=== PATIENT | female | born 1985 | race Caucasian/White ===

== ENCOUNTER 2016-06-25 02:05 | Emergency (ER) | payer SELFPAY ==
[~2016-06-25 02:05] MED LIST: ACCUCHECK; ALBUTEROL INH; ALCOHOL SWABS; ASPI81TA45 OR; FOLI1TAB2 PO; HABITROL14 TOPICAL; HABITROL2 TOPICAL; HABITROL7 TOPICAL; INSUDET SC; INSULANT SC; INSULIN SYRINGES; INSURSD SC; LANCET; LEVA500T; LISPRO; METF500T4 OR; NAPROS500 PO; NEXIUM40 PO; NICOTROLIN PO; NOVOLOG100 MG/ML; THIA100T PO; [UNRECOGNIZED DRUG - CODE] PO
--- NOTE | 2016-06-25 03:20 | REPUSA ---
HISTORY: Trauma. COMPARISON: Not provided. TECHNIQUE: Multiple thin section helically-acquired axially-displayed and helically acquired coronall y displayed computed tomographic images of the face are obtained from the mandible through the fronta l sinuses, with images obtained at soft tissue and bone window. 2D reformatted images were performed. FINDINGS: Left periorbital soft tissue edema and swelling. Normal bony mineralization. No fractures. Normal orbits. Normal, clear paranasal sinuses. Normal oral and nasal cavities. Normal infratemporal fossa and deep parapharyngeal spaces with normal muscles of mastication. Normal parotid and submandibular glands. IMPRESSION: Left periorbital soft tissue edema and swelling. No fracture. Thank you for your kind referral of this patient
[2016-06-25] MEDS ORDERED: ACETAMINOPHEN 325 MG TAB As Ordered ONE (03:25)
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
--- NOTE | 2016-06-25 03:36 | EDDOCDS ---
Physician Documentation [facility] Name: Parisa Pa Age: 31 yrs Sex: Female : 1985 Arrival Date: 06/25/2016 Time: 02:05 Bed 2 Private MD: No Pcp Disposition: 06/25/16 03:21 Discharged to Home/Self Care. Impression: Contusion of unspecified part of head, Contusion of unspecified part of neck, Contusion of back wall of thorax. - Condition is Stable. - Medication Reconciliation, Local Pharmacy Hours form. - Follow up: Private Physician; When: Call to arrange an appointment; Reason: Recheck today's complaints. - Problem is new. - Symptoms have improved. Historical: - Allergies: no known allergies; - Home Meds: 1. Levemir 30 units in the am and between 10 and 20 units at night subcutaneous soln (Last dose: 06/24/2016 18:00) - PMHx: Diabetes - IDDM: controlled; - PSHx: none; - Social history: Smoking status: Patient uses tobacco products, light tobacco smoker. No barriers to communication noted, The patient speaks fluent [place]. - Family history: Not pertinent. - : The pt / caregiver states he / she is not on anticoagulants. Home medication list is obtained from the patient. - Exposure Risk Screening:: None identified. HEAD SWAMPER: 06/25 02:13 LMP 06/25/2016 [facility] Vital Signs: 02:13 BP 123 / 83; Pulse 85; Resp 18; Temp 98.2(O); Pulse Ox 98% on R/A; Weight 54.43 kg / kas2 120 lbs; Height 5 ft. 8 in. (172.72 cm); Pain 6/10; 03:33 BP 123 / 83; Pulse 82; Resp 18; Temp 98.0(O); Pulse Ox 98% on R/A; Pain 0/10; kas2 02:13 Body Mass Index 18.25 (54.43 kg, 172.72 cm) [facility] MDM: 02:23 Spine, Thoracic 3 Views Ordered. EDMS 02:23 Chest, 1 View Ordered. EDMS 02:23 CT Head Without Contrast Ordered. EDMS 02:23 CT Maxilofacial W/out Contrast Ordered. EDMS 02:26 Consult: Dining Service Inspector ordered. sls1 03:14 Acetaminophen Tablet 650 mg PO once ordered. cs11 03:16 Consult: Dining Service Inspector complete. cl 03:22 Financial registration complete. [facility] Point of Care Testing: Blood Glucose: : Blood Glucose: 236 mg/dL; kas2 Ranges: Administered Medications: : Drug: Acetaminophen 650 mg [acetaminophen 325 mg tablet (2 tabs)] Route: PO; kas2 Signatures: Dispatcher [employer] EDMS Nimesh Pacheco, PSA PSA Katerina Mcdonough RN RN sls1 Kobi Mckeon DO DO [facility] Cassy Dykes [facility] Luli Vilchis RN RN kas2 MTDD
--- NOTE | 2016-06-25 08:29 | REP ---
Clinical: Trauma . Comparison: 12/08/2015 . Technique: PA and lateral. Findings: The mediastinum and cardiac silhouette are normal. The lung macias are clear and without acute consolidation, effusion, or pneumothorax. The skeletal structures are intact and normal. Impression: 1. No acute cardiopulmonary process. Signed by Gian Lopez MD 06/25/2016 08:20 A
--- NOTE | 2016-06-25 08:29 | REP ---
Clinical: Trauma. Technique: AP, lateral, and swimmers views. Findings: Alignment and kyphosis is maintained. Vertebral bodies intact. No acute fracture / compression injury or subluxation. No degenerative changes. Paravertebral soft tissues are normal. Impression: Normal thoracic spine series. Signed by Gian Lopez MD 06/25/2016 08:20 A
--- NOTE | 2016-06-27 04:36 | EDDOCDS ---
Physician Documentation [facility] Name: Parisa Pa Age: 31 yrs Sex: Female : 1985 Arrival Date: 06/25/2016 Time: 02:05 Bed 2 Private MD: No Pcp Disposition: 06/25/16 03:21 Discharged to Home/Self Care. Impression: Contusion of unspecified part of head, Contusion of unspecified part of neck, Contusion of back wall of thorax. - Condition is Stable. - Medication Reconciliation, Local Pharmacy Hours form. - Follow up: Private Physician; When: Call to arrange an appointment; Reason: Recheck today's complaints. - Problem is new. - Symptoms have improved. Historical: - Allergies: no known allergies; - Home Meds: 1. Levemir 30 units in the am and between 10 and 20 units at night subcutaneous soln (Last dose: 06/24/2016 18:00) - PMHx: Diabetes - IDDM: controlled; - PSHx: none; - Social history: Smoking status: Patient uses tobacco products, light tobacco smoker. No barriers to communication noted, The patient speaks fluent Zambian. - Family history: Not pertinent. - : The pt / caregiver states he / she is not on anticoagulants. Home medication list is obtained from the patient. - Exposure Risk Screening:: None identified. ASSET LIABILITY ANALYST: 06/25 02:13 LMP 06/25/2016 [facility] Vital Signs: 02:13 BP 123 / 83; Pulse 85; Resp 18; Temp 98.2(O); Pulse Ox 98% on R/A; Weight 54.43 kg / kas2 120 lbs; Height 5 ft. 8 in. (172.72 cm); Pain 6/10; 03:33 BP 123 / 83; Pulse 82; Resp 18; Temp 98.0(O); Pulse Ox 98% on R/A; Pain 0/10; kas2 02:13 Body Mass Index 18.25 (54.43 kg, 172.72 cm) [facility] MDM: 02:23 Spine, Thoracic 3 Views Ordered. EDMS 02:23 Chest, 1 View Ordered. EDMS 02:23 CT Head Without Contrast Ordered. EDMS 02:23 CT Maxilofacial W/out Contrast Ordered. EDMS 02:26 Consult: Bath Steward/Stewardess ordered. sls1 03:14 Acetaminophen Tablet 650 mg PO once ordered. cs11 03:16 Consult: Bath Steward/Stewardess complete. cl 03:22 Financial registration complete. [facility] 03:37 [facility] Payment Agreement was scanned into [employer] and attached to record. [facility] 06/26 09:55 T-Sheet-- Draft Copy was scanned into [employer] and attached to record. [facility] Point of Care Testing: Blood Glucose: 06/25 02:26 Blood Glucose: 236 mg/dL; kas2 Ranges: Administered Medications: 03:26 Drug: Acetaminophen 650 mg [acetaminophen 325 mg tablet (2 tabs)] Route: PO; kas2 Signatures: Dispatcher [employer] EDMS Nimesh Pacheco, PSA PSA cl Berta Kwok, Reg Reg gb Katerina Vincent, RN RN sls1 Kobi Mckeon DO DO 11 Cassy Dykes Luli PetersRN RN kas2 The chart was reviewed and I authenticate all verbal orders and agree with the evaluation and treatment provided.Attachments: 03:37 [facility] Payment Agreement [facility] 06/26 09:55 T-Sheet-- Draft Copy Chart Complete MTDD
--- NOTE | 2016-06-27 04:36 | EDDOCDS ---
Physician Documentation [facility] Name: Parisa Pa Age: 31 yrs Sex: Female : 1985 Arrival Date: 06/25/2016 Time: 02:05 Bed 2 Private MD: No Pcp Disposition: 06/25/16 03:21 Discharged to Home/Self Care. Impression: Contusion of unspecified part of head, Contusion of unspecified part of neck, Contusion of back wall of thorax. - Condition is Stable. - Medication Reconciliation, Local Pharmacy Hours form. - Follow up: Private Physician; When: Call to arrange an appointment; Reason: Recheck today's complaints. - Problem is new. - Symptoms have improved. Historical: - Allergies: no known allergies; - Home Meds: 1. Levemir 30 units in the am and between 10 and 20 units at night subcutaneous soln (Last dose: 06/24/2016 18:00) - PMHx: Diabetes - IDDM: controlled; - PSHx: none; - Social history: Smoking status: Patient uses tobacco products, light tobacco smoker. No barriers to communication noted, The patient speaks fluent Algerian. - Family history: Not pertinent. - : The pt / caregiver states he / she is not on anticoagulants. Home medication list is obtained from the patient. - Exposure Risk Screening:: None identified. JANITOR CLEANER: 06/25 02:13 LMP 06/25/2016 [facility] Vital Signs: 02:13 BP 123 / 83; Pulse 85; Resp 18; Temp 98.2(O); Pulse Ox 98% on R/A; Weight 54.43 kg / kas2 120 lbs; Height 5 ft. 8 in. (172.72 cm); Pain 6/10; 03:33 BP 123 / 83; Pulse 82; Resp 18; Temp 98.0(O); Pulse Ox 98% on R/A; Pain 0/10; kas2 02:13 Body Mass Index 18.25 (54.43 kg, 172.72 cm) [facility] MDM: 02:23 Spine, Thoracic 3 Views Ordered. EDMS 02:23 Chest, 1 View Ordered. EDMS 02:23 CT Head Without Contrast Ordered. EDMS 02:23 CT Maxilofacial W/out Contrast Ordered. EDMS 02:26 Consult: Air Twister Winder ordered. sls1 03:14 Acetaminophen Tablet 650 mg PO once ordered. cs11 03:16 Consult: Air Twister Winder complete. cl 03:22 Financial registration complete. [facility] 03:37 [facility] Payment Agreement was scanned into [employer] and attached to record. [facility] 06/26 09:55 T-Sheet-- Draft Copy was scanned into [employer] and attached to record. [facility] Point of Care Testing: Blood Glucose: 06/25 02:26 Blood Glucose: 236 mg/dL; kas2 Ranges: Administered Medications: 03:26 Drug: Acetaminophen 650 mg [acetaminophen 325 mg tablet (2 tabs)] Route: PO; kas2 Signatures: Dispatcher [employer] EDMS Nimesh Pacheco, PSA PSA cl Berta Kwok, Reg Reg gb Katerina Vincent, RN RN sls1 Kobi Mckeon DO DO 11 Cassy Dykes Luli PetersRN RN kas2 The chart was reviewed and I authenticate all verbal orders and agree with the evaluation and treatment provided.Attachments: 03:37 [facility] Payment Agreement [facility] 06/26 09:55 T-Sheet-- Draft Copy Chart Complete MTDD
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
== END 2016-06-25 03:35 | disposition home or self-care (01) ==
LOC: M ED 02:05
DX: S00.93XA Contusion of unspecified part of head, initial encounter (principal); S10.93XA Contusion of unspecified part of neck, initial encounter; S20.229A Contusion of unspecified back wall of thorax, initial encounter; Y04.8XXA Assault by other bodily force, initial encounter; Y92.019 Unspecified place in single-family (private) house as the place of occurrence of the external cause; Y93.9 Activity, unspecified; Y99.9 Unspecified external cause status; X58.XXXA Exposure to other specified factors, initial encounter; E10.9 Type 1 diabetes mellitus without complications; Z72.0 Tobacco use; Z79.4 Long term (current) use of insulin

== ENCOUNTER 2016-07-08 14:24 | Emergency (ER) | payer SELFPAY ==
[2016-07-08] MEDS ORDERED: PERCOCET 5MG/325MG TAB As Ordered ONE (15:28)
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
--- NOTE | 2016-07-08 17:06 | EDDOCDS ---
Physician Documentation [facility] Name: Parisa Pa Age: 31 yrs Sex: Female : 1985 Arrival Date: 07/08/2016 Time: 14:24 Bed I10 23 Private MD: No Pcp Disposition: 07/08/16 16:06 Discharged to Home/Self Care. Impression: Contusion of right shoulder. - Condition is Stable. - Discharge Instructions: Shoulder Pain, Shoulder Pain, [id number]. - Prescriptions for Naprosyn 500 mg Oral Tablet - take 1 tablet by ORAL route 2 times per day take with food; 30 tablet. - Medication Reconciliation, Local Pharmacy Hours form. - Follow up: [facility] ; When: Call to arrange an appointment. Follow up: [facility]; When: Call to arrange an appointment. - Problem is new. - Symptoms are unchanged. Historical: - Allergies: No known drug Allergies; - Home Meds: 1. Levemir subcutaneous 35 units in am and 25 at hs - PMHx: Diabetes - IDDM: controlled; - PSHx: none; - Social history: Smoking status: Patient uses tobacco products, heavy tobacco smoker. No barriers to communication noted, The patient speaks fluent American, Speaks appropriately for age. - Family history: Not pertinent. - : The pt / caregiver states he / she is not on anticoagulants. Home medication list is obtained from the patient. - Exposure Risk Screening:: None identified. HOSPICE TEAM LEAD: 07/08 14:37 LMP 06/24/2016 ck1 Vital Signs: 14:27 BP 115 / 74; Pulse 79; Resp 16; Temp 96.9(O); Pulse Ox 100% on R/A; Weight 58.97 kg / sew 130.01 lbs; Height 5 ft. 8 in. (172.72 cm); Pain 9/10; 16:45 BP 122 / 68; Pulse 72; Resp 18; mk4 14:27 Body Mass Index 19.77 (58.97 kg, 172.72 cm) sew MDM: 15:08 oxyCODONE-acetaminophen 5 mg-325 mg 1 tabs PO once ordered. sd1 15:09 oxyCODONE-acetaminophen 5 mg-325 mg 1 tabs PO once; with sip only ordered. sd1 15:09 Shoulder, Complete Ordered. EDMS 15:41 Sling ordered. sd1 Administered Medications: 15:09 Not Given (reordered): oxyCODONE-acetaminophen 5 mg-325 mg 1 tabs PO once sd1 15:41 Drug: oxyCODONE-acetaminophen 1 tabs [oxycodone-acetaminophen 5 mg-325 mg tablet (1 jjr tabs)] Route: PO; Signatures: Dispatcher [employer] EDPA Traci Tate MD MD sd1 Ayde Argueta RN RN ck1 Nidia Elizabeth RN RN mk4 Ekaterina Razo RN jjr MTDD
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
--- NOTE | 2016-07-10 18:06 | EDDOCDS ---
Physician Documentation [facility] Name: Parisa Pa Age: 31 yrs Sex: Female : 1985 Arrival Date: 07/08/2016 Time: 14:24 Bed I10 23 Private MD: No Pcp Disposition: 07/08/16 16:06 Discharged to Home/Self Care. Impression: Contusion of right shoulder. - Condition is Stable. - Discharge Instructions: Shoulder Pain, Shoulder Pain, Oehm-tv-Caby. - Prescriptions for Naprosyn 500 mg Oral Tablet - take 1 tablet by ORAL route 2 times per day take with food; 30 tablet. - Medication Reconciliation, Local Pharmacy Hours form. - Follow up: [facility] ; When: Call to arrange an appointment. Follow up: [facility]; When: Call to arrange an appointment. - Problem is new. - Symptoms are unchanged. Historical: - Allergies: No known drug Allergies; - Home Meds: 1. Levemir subcutaneous 35 units in am and 25 at hs - PMHx: Diabetes - IDDM: controlled; - PSHx: none; - Social history: Smoking status: Patient uses tobacco products, heavy tobacco smoker. No barriers to communication noted, The patient speaks fluent [place], Speaks appropriately for age. - Family history: Not pertinent. - : The pt / caregiver states he / she is not on anticoagulants. Home medication list is obtained from the patient. - Exposure Risk Screening:: None identified. 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 8 in. (172.72 cm); Pain 9/10; 16:45 BP 122 / 68; Pulse 72; Resp 18; mk4 14:27 Body Mass Index 19.77 (58.97 kg, 172.72 cm) sew MDM: 15:08 oxyCODONE-acetaminophen 5 mg-325 mg 1 tabs PO once ordered. sd1 15:09 oxyCODONE-acetaminophen 5 mg-325 mg 1 tabs PO once; with sip only ordered. sd1 15:09 Shoulder, Complete Ordered. EDMS 15:41 Sling ordered. sd1 07/09 12:03 T-Sheet-- Draft Copy was scanned into [employer] and attached to record. gb Administered Medications: 07/08 15:09 Not Given (reordered): oxyCODONE-acetaminophen 5 mg-325 mg 1 tabs PO once sd1 15:41 Drug: oxyCODONE-acetaminophen 1 tabs [oxycodone-acetaminophen 5 mg-325 mg tablet (1 jjr tabs)] Route: PO; Signatures: Dispatcher [employer] EDCA Traci Tate MD MD sd1 Berta Kwok, Reg Reg gb Ayde ArguetaRN RN ck1 Nidia Elizabeth RN RN mk4 Ekaterina Razo RN jjr The chart was reviewed and I authenticate all verbal orders and agree with the evaluation and treatment provided.Attachments: 07/09 12:03 T-Sheet-- Draft Copy gb Chart Complete MTDD
--- NOTE | 2016-07-10 18:06 | EDDOCDS ---
Physician Documentation [facility] Name: Parisa Pa Age: 31 yrs Sex: Female : 1985 Arrival Date: 07/08/2016 Time: 14:24 Bed I10 23 Private MD: No Pcp Disposition: 07/08/16 16:06 Discharged to Home/Self Care. Impression: Contusion of right shoulder. - Condition is Stable. - Discharge Instructions: Shoulder Pain, Shoulder Pain, [id number]. - Prescriptions for Naprosyn 500 mg Oral Tablet - take 1 tablet by ORAL route 2 times per day take with food; 30 tablet. - Medication Reconciliation, Local Pharmacy Hours form. - Follow up: [facility] ; When: Call to arrange an appointment. Follow up: [facility]; When: Call to arrange an appointment. - Problem is new. - Symptoms are unchanged. Historical: - Allergies: No known drug Allergies; - Home Meds: 1. Levemir subcutaneous 35 units in am and 25 at hs - PMHx: Diabetes - IDDM: controlled; - PSHx: none; - Social history: Smoking status: Patient uses tobacco products, heavy tobacco smoker. No barriers to communication noted, The patient speaks fluent Malagasy, Speaks appropriately for age. - Family history: Not pertinent. - : The pt / caregiver states he / she is not on anticoagulants. Home medication list is obtained from the patient. - Exposure Risk Screening:: None identified. 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 8 in. (172.72 cm); Pain 9/10; 16:45 BP 122 / 68; Pulse 72; Resp 18; mk4 14:27 Body Mass Index 19.77 (58.97 kg, 172.72 cm) sew MDM: 15:08 oxyCODONE-acetaminophen 5 mg-325 mg 1 tabs PO once ordered. sd1 15:09 oxyCODONE-acetaminophen 5 mg-325 mg 1 tabs PO once; with sip only ordered. sd1 15:09 Shoulder, Complete Ordered. EDMS 15:41 Sling ordered. sd1 07/09 12:03 T-Sheet-- Draft Copy was scanned into [employer] and attached to record. gb Administered Medications: 07/08 15:09 Not Given (reordered): oxyCODONE-acetaminophen 5 mg-325 mg 1 tabs PO once sd1 15:41 Drug: oxyCODONE-acetaminophen 1 tabs [oxycodone-acetaminophen 5 mg-325 mg tablet (1 jjr tabs)] Route: PO; Signatures: Dispatcher [employer] EDMA Traci Tate MD MD sd1 Berta Kwok, Reg Reg gb Ayde ArguetaRN RN ck1 Nidia Elizabeth RN RN mk4 Ekaterina Razo RN jjr The chart was reviewed and I authenticate all verbal orders and agree with the evaluation and treatment provided.Attachments: 07/09 12:03 T-Sheet-- Draft Copy gb Chart Complete MTDD
== END 2016-07-08 17:05 | disposition home or self-care (01) ==
LOC: M ED 14:24
DX: S40.011A Contusion of right shoulder, initial encounter (principal); Y07.03 Male partner, perpetrator of maltreatment and neglect; Y92.019 Unspecified place in single-family (private) house as the place of occurrence of the external cause; Y93.89 Activity, other specified; Y99.8 Other external cause status; E11.9 Type 2 diabetes mellitus without complications; F17.210 Nicotine dependence, cigarettes, uncomplicated; Z79.4 Long term (current) use of insulin

== ENCOUNTER 2016-10-17 06:26 | Emergency (ER) | payer BC ==
[~2016-10-17] VITALS: Ht 170.2 cm; Wt 56.7 kg
[2016-10-17 06:36] VITALS: BP 133/85
[2016-10-17] MEDS ORDERED: INSUDET SC (06:42)
--- NOTE | 2016-10-17 08:22 | REP ---
CT Head without contrast HISTORY: Trauma COMPARISON: 06/25/2016 There is no intraparenchymal hemorrhage, acute infarct, mass or midline shift. The ventricular system is normal in appearance. There is no extra cerebral collection. There is no fracture. The visualized sinuses are clear. IMPRESSION: There is no intracranial lesion. Signed by Hernán Mustafa MD 10/17/2016 08:13 A
--- NOTE | 2016-10-17 14:49 | REP ---
MAXILLOFACIAL CT WITHOUT CONTRAST: HISTORY: Trauma. The sinuses are clear. The osteomeatal units are patent. The middle and inferior nasal turbinates are partially paradoxical. There is sandra bullosa of the middle nasal turbinates. There is mild deviation of the nasal septum to the left superiorly and to the right inferiorly. A spur is present arising from the right side of the nasal septum. The spur abuts the right middle and inferior nasal turbinates. The cribriform plate, medial hightower of the orbits, and optic canals are intact. The carotid canals form a segment of the posterolateral hightower of the sphenoid sinus. The right sphenoid sinus septum inserts into the right internal carotid canal wall. There is no fracture. IMPRESSION: There is no acute or chronic sinusitis. Signed by Hernán Mustaaf MD 10/17/2016 03:18 P
== END 2016-10-17 08:44 | disposition home or self-care (01) ==
LOC: EDBD 06:26 → M ED 07:20
DX: S00.03XA Contusion of scalp, initial encounter (principal); S00.01XA Abrasion of scalp, initial encounter; Y04.0XXA Assault by unarmed brawl or fight, initial encounter; Y92.019 Unspecified place in single-family (private) house as the place of occurrence of the external cause; Y93.89 Activity, other specified; Y99.8 Other external cause status; E11.9 Type 2 diabetes mellitus without complications; F17.210 Nicotine dependence, cigarettes, uncomplicated; Z79.4 Long term (current) use of insulin

== ENCOUNTER 2017-01-12 11:21 | Emergency (ER) | payer BC ==
[~2017-01-12] VITALS: Ht 172.7 cm; Wt 51.9 kg
[~2017-01-12 11:21] MED LIST changes: -FOLI1TAB2 PO; +FOLI1TAB4 PO; -THIA100T PO; +THIA100T6 PO
[2017-01-12] MEDS ORDERED: ONDANSETRON 4MG/2ML VIAL (J2405) IV ONE (12:15)
[2017-01-12] MEDS ORDERED: HumuLIN R (REGULAR) INSULIN (NovoLIN R) **100U/ML** PER UNIT IV ONE ×2 (12:15→13:00)
[2017-01-12] MEDS ORDERED: NS 1,000 ML IV ONE ×2 (12:15→13:00)
[2017-01-12 12:18] LABS: BASO # 0.1 K/mm3 (0.0-0.2); BASO % 0.9 % (0.0-1.0); EOS # 0.1 K/mm3 (0.0-0.50); EOS % 1.7 % (0.0-3.0); LARGE UNSTAINED CELL # 0.2 K/mm3 (0.0-0.4); LARGE UNSTAINED CELL % 1.8 % (0.0-4.0); LYMPH # 2.2 K/mm3 (1.5-4.5); LYMPH % 24.2 % (24.0-44.0); MEAN CORPUSCULAR HEMOGLOBIN 33.8 pg (27.0-33.0); MEAN CORPUSCULAR HGB CONC 32.6 g/dl (32.0-36.5); MEAN CORPUSCULAR VOLUME 103.6 fl (80.0-96.0); MONO # 0.3 K/mm3 (0.0-0.8); MONO % 3.5 % (0.0-5.0); NEUTROPHILS # 5.8 K/mm3 (1.8-7.7); PLATELET COUNT, AUTOMATED 304 k/mm3 (150-450); WHITE BLOOD COUNT 8.5 K/mm3 (4.0-10.0)
[2017-01-12 12:24] LABS: CONTROL LINE HCG INT CTR LINE PRESENT
[2017-01-12 12:30] LABS: ALBUMIN 4.8 GM/DL (3.2-5.2); ALBUMIN/GLOBULIN RATIO 0.94 (1.00-1.93); ALKALINE PHOSPHATASE 87 U/L (45-117); ALT/SGPT 25 U/L (12-78); ANION GAP 18 MEQ/L (8-16); AST/SGOT 30 U/L (15-37); BILIRUBIN,DIRECT 0.1 MG/DL (0.0-0.2); BILIRUBIN,TOTAL 0.8 MG/DL (0.2-1.0); BLOOD UREA NITROGEN 20 MG/DL (7-18); CALCIUM LEVEL 9.3 MG/DL (8.5-10.1); CARBON DIOXIDE LEVEL 14 MEQ/L (21-32); CHLORIDE LEVEL 93 MEQ/L (98-107); CREATININE FOR GFR 0.81 MG/DL (0.55-1.02); GLOMERULAR FILTRATION RATE > 60.0 (>60); GLUCOSE, FASTING 341 MG/DL (70-105); POTASSIUM SERUM 4.7 MEQ/L (3.5-5.1); SODIUM LEVEL 125 MEQ/L (136-145); TOTAL PROTEIN 9.9 GM/DL (6.4-8.2)
--- NOTE | 2017-01-12 13:10 | REP ---
ABDOMINAL SERIES: Supine and erect views of the abdomen demonstrate no evidence of free intraperitoneal air and no evidence for bowel obstruction. No dilated small bowel loops are seen. No abnormal calcifications are seen. An accompanying view of the chest demonstrates no acute infiltrate. Heart is normal in size. IMPRESSION: Unremarkable abdominal series. Signed by Jose Francisco MD 01/13/2017 05:50 P
[2017-01-12 14:22] VITALS: BP 111/74
== END 2017-01-12 14:25 | disposition home or self-care (01) ==
LOC: M ED 11:21
DX: E11.65 Type 2 diabetes mellitus with hyperglycemia (principal); E87.1 Hypo-osmolality and hyponatremia; J45.909 Unspecified asthma, uncomplicated; Z79.4 Long term (current) use of insulin
CPT/HCPCS: 74022; 80048; 80076; 81001; 83690; 84703; 85025; 87086; 96361; 96374; 96375; 96376; 99283; J2405

== ENCOUNTER 2017-01-24 21:43 | Emergency (ER) | payer BC ==
[~2017-01-24] VITALS: Ht 170.2 cm; Wt 53.1 kg
[2017-01-24 21:44] VITALS: BP 143/89
[2017-01-24] MEDS ORDERED: INSUDET SC ×2 (22:06)
== END 2017-01-24 22:45 | disposition left against medical advice (07) ==
LOC: M ED 21:43
DX: R73.9 Hyperglycemia, unspecified (principal); Z53.29 Procedure and treatment not carried out because of patient's decision for other reasons

== ENCOUNTER 2017-01-25 11:40 | Inpatient (IN) | payer BC ==
[~2017-01-25] VITALS: Ht 170.2 cm; Wt 58.1 kg
[2017-01-25] MEDS: ENOXAPARIN 40 MG/0.4 ML SYRINGE (J1650) SC SCH (09:00)
[2017-01-25] MEDS ORDERED: NS 1,000 ML IV ONE ×2 (12:15→13:15)
[2017-01-25 12:25] LABS: VENOUS BASE EXCESS -10.9 (-2.0-2.0); VENOUS O2 SATURATION 76.1 % (60.0-80.0); VENOUS PARTIAL PRESSURE CO2 34.4 mmHg (38.0-50.0); VENOUS PARTIAL PRESSURE O2 45.7 mmHg (30.0-50.0); VENOUS STANDARD HCO3 15.6 MEQ/L; VENOUS TOTAL CO2 16.1 MEQ/L (24.0-28.0)
[2017-01-25 12:29] LABS: BASO % 0.7 % (0.0-1.0); EOS # 0.1 K/mm3 (0.0-0.50); EOS % 2.1 % (0.0-3.0); LARGE UNSTAINED CELL # 0.2 K/mm3 (0.0-0.4); LARGE UNSTAINED CELL % 2.5 % (0.0-4.0); LYMPH # 2.5 K/mm3 (1.5-4.5); LYMPH % 34.7 % (24.0-44.0); MEAN CORPUSCULAR HEMOGLOBIN 34.2 pg (27.0-33.0); MEAN CORPUSCULAR VOLUME 100.5 fl (80.0-96.0); MONO # 0.3 K/mm3 (0.0-0.8); MONO % 4.6 % (0.0-5.0); NEUTROPHILS # 3.6 K/mm3 (1.8-7.7); NEUTROPHILS % 55.3 % (36.0-66.0); PLATELET COUNT, AUTOMATED 255 k/mm3 (150-450); RED CELL DISTRIBUTION WIDTH 12.2 % (11.5-14.5); WHITE BLOOD COUNT 6.6 K/mm3 (4.0-10.0)
[2017-01-25 12:53] LABS: CONTROL LINE HCG INT CTR LINE PRESENT
--- NOTE | 2017-01-25 12:55 | REP ---
Limited ultrasound of the abdominal wall for a palpable mass: Ultrasonography in the location of the palpable mass along the right abdominal wall is performed. There is no focal mass or fluid collection in the abdominal wall. Intraperitoneal peristalsing bowel loops are incidentally identified. Impression: No mass, fluid collection or cyst is identified in the abdominal wall and the location of the palpable lump . Signed by Jose Colindres MD 01/25/2017 12:46 P
[2017-01-25 13:01] LABS: ALBUMIN 4.2 GM/DL (3.2-5.2); ALBUMIN/GLOBULIN RATIO 1.08 (1.00-1.93); ALKALINE PHOSPHATASE 72 U/L (45-117); ALT/SGPT 20 U/L (12-78); ANION GAP 13 MEQ/L (8-16); AST/SGOT 10 U/L (15-37); BILIRUBIN,DIRECT 0.1 MG/DL (0.0-0.2); BILIRUBIN,TOTAL 0.4 MG/DL (0.2-1.0); BLOOD UREA NITROGEN 20 MG/DL (7-18); CARBON DIOXIDE LEVEL 17 MEQ/L (21-32); CHLORIDE LEVEL 102 MEQ/L (98-107); CREATININE FOR GFR 0.77 MG/DL (0.55-1.02); GLOMERULAR FILTRATION RATE > 60.0 (>60); POTASSIUM SERUM 4.7 MEQ/L (3.5-5.1); SODIUM LEVEL 132 MEQ/L (136-145); TOTAL PROTEIN 8.1 GM/DL (6.4-8.2)
[2017-01-25 13:04] LABS: GLUCOSE, FASTING 405 MG/DL (70-105)
[2017-01-25] MEDS ORDERED: INSULIN HUMAN REGULAR 100 UNITS in NS 99 ML IV SCH ×3 (13:15→14:00)
[2017-01-25] MEDS ORDERED: NS 1,000 ML IV SCH (13:38)
[2017-01-25] MEDS ORDERED: D5W/0.45% SODIUM CHLORIDE 1,000 ML IV SCH (13:38)
[2017-01-25 14:20] LABS: VENOUS BASE EXCESS -9.1 (-2.0-2.0); VENOUS O2 SATURATION 45.8 % (60.0-80.0); VENOUS PARTIAL PRESSURE CO2 41.7 mmHg (38.0-50.0); VENOUS PARTIAL PRESSURE O2 29.1 mmHg (30.0-50.0); VENOUS STANDARD HCO3 16.2 MEQ/L
[2017-01-25] MEDS: INSULIN IV RATE CHANGE DOCUMENTATION ML/HR XX SCH ×2 (14:25→16:05)
--- NOTE | 2017-01-25 14:44 | HPEPDOC ---
Medical History and Physical Date of Admission Jan 25, 2017 at 13:38 History and Physical ATTENDING: Dr. Wynn PCP: E clinic. Dr Kumar. CC: elevated BS HPI:31yoF with a past medical history significant for Type I DM, who states he BS have been consistently running "high," 300s-400s, 590 this AM. Was instructed as per PCP to come to ED yesterday, she came last PM but LWBS. Denies recent illness. States she is complinat with her Insulin and with diet. States current Levemir "is not working". [place] very fatigued today. Some nausea, generalized abdominal discomfort. Denies any fevers, chills, JONES, CP, SOB, cough, palpitations, or changes in bowel or bladder habits. Upon presentation to the hospital the patient was found to have DKA, thus the hospitalist team was consulted. 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 Children: Alive, well Unexpected deaths due to medical reasons: None. ROS: As noted in HPI, otherwise 11pt ROS of systems reviewed and remarkable only for LMP unknown. HCG neg. PE: GEN: 31yoF, appears stated age. Well-nourished, well developed. No acute distress. Alert and oriented x 3. Pleasant, interactive. HEENT: Normocephalic, atraumatic. Pupils are equal, round, and reactive to light. Extraocular movements are intact. No nystagmus appreciated. Sclera are nonicteric. Conjunctiva without injection. Nose midline. Nasal turbinates without bogginess. EACs both patent BL. TMs both visualized and [place]ley with good cone of light, no bulging or erythema. No facial asymmetry. Moist mucous membranes. Dentition fair. Pharynx pink and moist, no cobblestoning. Neck supple , trachea midline. No lymphadenopathy or thyromegaly appreciated. CHEST: Regular rate and rhythm, +S1, +S2 LUNGS: Clear to auscultation bilaterally. No wheezes, rales, or rhonchi. Breathing appears symmetric and easy. Patient is speaking in full sentences. No accessory muscle use. ABD: Round, soft, non-tender, non-distended. +Bowel sounds throughout. No rebound or guarding. No costovertebral angle tenderness. EXT: Pulses 2+ bilaterally dorsalis pedis and radial. No lower extremity edema appreciated. SKIN: [place], dry, warm. Capillary refill <2sec. No rashes. NEURO: Alert and oriented x 3. Cranial nerves III-XII are intact. No focal deficits appreciated. Abd U/S No mass, fluid collection or cyst is identified in the abdominal wall and the location of the palpable lump . 01/13 Unremarkable abdominal series. A&P: 31yoF with a past medical history significant for Type I DM, who states he BS have been consistently running "high," 300s-400s, 590 this AM. Was instructed as per PCP to come to ED yesterday, she came last PM but LWBS 1. The patient will be admitted to ICU for at least [address] Wynn's service. 2. DKA. S/P 2 liter IVF in ED. IVF at 100cc/hr. Insulin IV per protocol. BMP Q4hr. BCx 2 pending. VBG pending. Acetone pending. A1c pending. 3. Type I DM. Levemir currently on hold. 4. DVT prophylaxis. Lovenox. The patient is a Full code. Vital Signs Vital Signs Date Time Temp Pulse Resp B/P (MAP) Pulse Ox O2 Delivery O2 Flow Rate FiO2 01/25/17 13:55 70 99 01/25/17 12:22 01/25/17 11:41 97.9 18 Room Air Laboratory Data Labs 24H Laboratory Tests 2 01/25/17 12:15: White Blood Count 6.6, Red Blood Count 4.50, Hemoglobin 15.4, Hematocrit 45.2, Mean Corpuscular Volume 100.5H, Mean Corpuscular Hemoglobin 34.2H, Mean Corpuscular Hemoglobin Concent 34.0, Red Cell Distribution Width 12.2, Platelet Count 255, Neutrophils (%) (Auto) 55.3, Lymphocytes (%) (Auto) 34.7, Monocytes ( %) (Auto) 4.6, Eosinophils (%) (Auto) 2.1, Basophils (%) (Auto) 0.7, Neutrophils # (Auto) 3.6, Lymphocytes # (Auto) 2.5, Monocytes # (Auto) 0.3, Eosinophils # (Auto) 0.1, Basophils # (Auto) 0.0, Large Unclassified Cells % 2.5 , Large Unclassified Cells # 0.2, Blood Gas Bicarbonate Standard 15.6, Venous Blood pH 7.259L, Venous Blood Partial Pressure CO2 34.4L, Venous Blood Partial Pressure O2 45.7, Venous Blood Total Carbon Dioxide 16.1L, Venous Blood HCO3 15.1L, Venous Blood Oxygen Saturation 76.1, Venous Blood Base Excess -10.9L, Anion Gap 13, Glomerular Filtration Rate > 60.0, Lactic Acid Level 0.8, Calcium Level 9.0, Aspartate Amino Transf (AST/SGOT) 10L, Alanine Aminotransferase (ALT/ SGPT) 20, Alkaline Phosphatase 72, Total Bilirubin 0.4, Direct Bilirubin 0.1, Total Protein 8.1, Albumin 4.2, Albumin/Globulin Ratio 1.08, Lipase 177, Human Chorionic Gonadotropin, Qual NEGATIVE, B-Hydroxybutyrate 41.46H 01/25/17 13:10: Bedside Glucose (Misc Panel) 355H 01/25/17 14:08: CBC/BMP Laboratory Tests 01/25/17 12:15 Red Blood Count 4.50, Mean Corpuscular Volume 100.5 H, Mean Corpuscular Hemoglobin 34.2 H, Mean Corpuscular Hemoglobin Concent 34.0, Red Cell Distribution Width 12.2, Neutrophils (%) (Auto) 55.3, Lymphocytes (%) (Auto) 34.7, Monocytes (%) (Auto) 4.6, Eosinophils (%) (Auto) 2.1, Basophils (%) (Auto ) 0.7, Neutrophils # (Auto) 3.6, Lymphocytes # (Auto) 2.5, Monocytes # (Auto) 0.3, Eosinophils # (Auto) 0.1, Basophils # (Auto) 0.0 Microbiology Microbiology 01/25/17 Blood Culture, Received Pending 01/25/17 Blood Culture, Received Pending Home Medications Scheduled Insulin Detemir (Levemir) 1 Units/0.01 Ml Susp, 15 UNITS SC QPM Insulin Detemir (Levemir) 1 Units/0.01 Ml Susp, 35 UNITS SC QAM Allergies Coded Allergies: No Known Allergies (Verified , 12/16/06) Sabina Cano Jan 25, 2017 14:44
[2017-01-25 17:12] LABS: ANION GAP 7 MEQ/L (8-16); BLOOD UREA NITROGEN 17 MG/DL (7-18); CARBON DIOXIDE LEVEL 23 MEQ/L (21-32); CHLORIDE LEVEL 108 MEQ/L (98-107); CREATININE FOR GFR 0.47 MG/DL (0.55-1.02); GLOMERULAR FILTRATION RATE > 60.0 (>60); GLUCOSE, FASTING 169 MG/DL (70-105); POTASSIUM SERUM 3.8 MEQ/L (3.5-5.1); SODIUM LEVEL 138 MEQ/L (136-145)
[2017-01-25] MEDS ORDERED: LEVEMIR (INSULIN DETEMIR) 1 UNITS/0.01ML SC ONE (17:30)
[2017-01-25] MEDS ORDERED: GLUCOSE 4 GM CHEW TABLET PO PRN (17:30)
[2017-01-25] MEDS ORDERED: DEXTROSE 50% 50 ML SYRINGE IV PRN (17:30)
[2017-01-25] MEDS ORDERED: GLUCAGON FOR INJ 1 MG VIAL (J1610) SC PRN (17:30)
[2017-01-25 17:34] LABS: VENOUS BASE EXCESS -5.4 (-2.0-2.0); VENOUS O2 SATURATION 86.7 % (60.0-80.0); VENOUS PARTIAL PRESSURE O2 57.3 mmHg (30.0-50.0); VENOUS STANDARD HCO3 19.8 MEQ/L; VENOUS TOTAL CO2 21.9 MEQ/L (24.0-28.0)
[2017-01-25] MEDS: HumaLOG INSULIN (NovoLOG) PER UNIT SC SCH ×2 (17:52→21:00)
[2017-01-25 18:53] LABS: VENOUS BASE EXCESS -2.7 (-2.0-2.0); VENOUS O2 SATURATION 92.7 % (60.0-80.0); VENOUS PARTIAL PRESSURE O2 70.7 mmHg (30.0-50.0); VENOUS STANDARD HCO3 22.1 MEQ/L; VENOUS TOTAL CO2 24.1 MEQ/L (24.0-28.0)
[2017-01-25 20:00] VITALS: BP 113/65
[2017-01-25 20:23] LABS: VENOUS BASE EXCESS -2.5 (-2.0-2.0); VENOUS O2 SATURATION 98.8 % (60.0-80.0); VENOUS PARTIAL PRESSURE CO2 34.8 mmHg (38.0-50.0); VENOUS PARTIAL PRESSURE O2 130.3 mmHg (30.0-50.0); VENOUS STANDARD HCO3 22.4 MEQ/L; VENOUS TOTAL CO2 22.5 MEQ/L (24.0-28.0)
[2017-01-25 21:02] LABS: ANION GAP 10 MEQ/L (8-16); BLOOD UREA NITROGEN 20 MG/DL (7-18); CARBON DIOXIDE LEVEL 22 MEQ/L (21-32); CHLORIDE LEVEL 106 MEQ/L (98-107); GLOMERULAR FILTRATION RATE > 60.0 (>60); GLUCOSE, FASTING 164 MG/DL (70-105); POTASSIUM SERUM 3.9 MEQ/L (3.5-5.1); SODIUM LEVEL 138 MEQ/L (136-145)
[2017-01-25] MEDS ORDERED: FLUCONAZOLE 50MG TABLET PO ONE (22:15)
[2017-01-26] VITALS (7 sets, daily range): BP systolic 98–131; BP diastolic 52–81
[2017-01-26 04:58] LABS: BASO % 0.5 % (0.0-1.0); EOS # 0.1 K/mm3 (0.0-0.50); EOS % 2.1 % (0.0-3.0); LARGE UNSTAINED CELL # 0.1 K/mm3 (0.0-0.4); LARGE UNSTAINED CELL % 1.9 % (0.0-4.0); LYMPH # 2.2 K/mm3 (1.5-4.5); LYMPH % 32.5 % (24.0-44.0); MEAN CORPUSCULAR HEMOGLOBIN 33.7 pg (27.0-33.0); MEAN CORPUSCULAR VOLUME 99.1 fl (80.0-96.0); MONO # 0.3 K/mm3 (0.0-0.8); MONO % 4.2 % (0.0-5.0); NEUTROPHILS # 3.7 K/mm3 (1.8-7.7); NEUTROPHILS % 58.8 % (36.0-66.0); PLATELET COUNT, AUTOMATED 238 k/mm3 (150-450); RED CELL DISTRIBUTION WIDTH 12.2 % (11.5-14.5); WHITE BLOOD COUNT 6.3 K/mm3 (4.0-10.0)
[2017-01-26 05:19] LABS: ANION GAP 9 MEQ/L (8-16); BLOOD UREA NITROGEN 20 MG/DL (7-18); CALCIUM LEVEL 8.3 MG/DL (8.5-10.1); CARBON DIOXIDE LEVEL 24 MEQ/L (21-32); CHLORIDE LEVEL 104 MEQ/L (98-107); CREATININE FOR GFR 0.63 MG/DL (0.55-1.02); GLOMERULAR FILTRATION RATE > 60.0 (>60); GLUCOSE, FASTING 352 MG/DL (70-105); POTASSIUM SERUM 4.4 MEQ/L (3.5-5.1); SODIUM LEVEL 137 MEQ/L (136-145)
[2017-01-26] MEDS ORDERED: NS 1,000 ML IV SCH (07:30)
[2017-01-26] MEDS: HumaLOG INSULIN (NovoLOG) PER UNIT SC SCH ×4 (07:45→21:00)
[2017-01-26] MEDS: ENOXAPARIN 40 MG/0.4 ML SYRINGE (J1650) SC SCH (07:48)
--- NOTE | 2017-01-26 08:43 | REP ---
Portable chest, single AP view, the patient upright: Comparison is 01/12/2017. The lung macias are clear. The cardiac size is normal. The heather, mediastinum, and bony thorax are unremarkable. Impression: Negative portable chest. There is no interval change. Signed by Jose Colindres MD 01/26/2017 08:35 A
[2017-01-26 08:44] LABS: ANION GAP 9 MEQ/L (8-16); BLOOD UREA NITROGEN 18 MG/DL (7-18); CALCIUM LEVEL 8.4 MG/DL (8.5-10.1); CARBON DIOXIDE LEVEL 23 MEQ/L (21-32); CHLORIDE LEVEL 100 MEQ/L (98-107); CREATININE FOR GFR 0.69 MG/DL (0.55-1.02); GLOMERULAR FILTRATION RATE > 60.0 (>60); GLUCOSE, FASTING 384 MG/DL (70-105); POTASSIUM SERUM 4.1 MEQ/L (3.5-5.1); SODIUM LEVEL 132 MEQ/L (136-145)
[2017-01-26] MEDS ORDERED: LEVEMIR (INSULIN DETEMIR) 1 UNITS/0.01ML SC SCH ×3 (09:00→21:00)
[2017-01-26 12:35] LABS: ANION GAP 9 MEQ/L (8-16); BLOOD UREA NITROGEN 16 MG/DL (7-18); CALCIUM LEVEL 8.6 MG/DL (8.5-10.1); CARBON DIOXIDE LEVEL 25 MEQ/L (21-32); CHLORIDE LEVEL 102 MEQ/L (98-107); CREATININE FOR GFR 0.58 MG/DL (0.55-1.02); GLOMERULAR FILTRATION RATE > 60.0 (>60); GLUCOSE, FASTING 304 MG/DL (70-105); POTASSIUM SERUM 4.1 MEQ/L (3.5-5.1); SODIUM LEVEL 136 MEQ/L (136-145)
--- NOTE | 2017-01-26 14:25 | IPNPDOC ---
Text Note Date of Service The patient was seen on 01/26/17. NOTE Subjective: Patient states she feels well. Denies chest pain/palpitations/ [place]. States she has abdominal hernia that's been chronic however is reducible. States she occasionally checks her blood sugars once a day. She also takes Levemir 3 times a day at times. Objective: Vitals: (see below) General: No acute distress, laying comfortably in bed. HEENT: Moist mucous membranes. Neck: No JVD or lymphadenopathy Cardiac: RRR, No murmurs Pulm: Minimal exp wheezing b/l. No crackles/rhonchi. Abd: NT/ND + BS. Small, hernia adjacent to the umbilicus. Reducible. Nonincarcerated. Minimal tenderness. No rebound guarding or rigidity. Ext: No edema or cyanosis Labs (see below) Images: CXR 01/26/17 Impression: Negative portable chest. There is no interval change. Abd u/s 01/26/17 Impression: No mass, fluid collection or cyst is identified in the abdominal wall and the location of the palpable lump . Assessment/Plan 1. DKA - resolved. On Levemir BID. Type I diabetic. States she takes starting units of Levemir a.m. 15 p.m. occasionally takes a third dose of her blood sugars are high. Checks her blood sugars once a day, however Tuesday she doesn't check her blood sugars. Status post insulin drip and IV fluids. Transitions Levemir. Feeling well. Chest x-ray/UA negative. EKG with no acute ST changes. Cardiac enzymes negative. Will need to be referred to merchandising manager by her primary care physician. 2. Asthma - stable. On nebs as needed. 3. Tobacco abuse- counseled on cessation. Refused nicotine patch. 4. Abdominal hernia- reducible. Will need outpatient follow-up. DVT prophy: Enoxaparin VS,Fishbone, I+O VS, Fishbone, I+O Laboratory Tests 01/25/17 16:12 Calcium Level 8.0 L 01/25/17 20:13 Calcium Level 8.0 L 01/26/17 04:46 Calcium Level 8.3 L, Red Blood Count 3.93 L, Mean Corpuscular Volume 99.1 H, Mean Corpuscular Hemoglobin 33.7 H, Mean Corpuscular Hemoglobin Concent 34.0, Red Cell Distribution Width 12.2, Neutrophils (%) (Auto) 58.8, Lymphocytes (%) ( Auto) 32.5, Monocytes (%) (Auto) 4.2, Eosinophils (%) (Auto) 2.1, Basophils (%) (Auto) 0.5, Neutrophils # (Auto) 3.7, Lymphocytes # (Auto) 2.2, Monocytes # ( Auto) 0.3, Eosinophils # (Auto) 0.1, Basophils # (Auto) 0.0 01/26/17 07:55 Calcium Level 8.4 L 01/26/17 11:59 Calcium Level 8.6 Vital Signs Date Time Temp Pulse Resp B/P (MAP) Pulse Ox O2 Delivery O2 Flow Rate FiO2 01/26/17 09:00 118/78 (91) 01/26/17 08:00 97.8 74 18 99 Room Air I&O- Last 24 Hours up to 6 AM 01/26/17 06:00 Intake Total 3480 ml Output Total 400 ml Balance 3080 ml BERNARDO BECKER MD Jan 26, 2017 14:25
[2017-01-26] MEDS ORDERED: ACETAMINOPHEN TAB 650MG DOSE (2X325MG) PO PRN (17:30)
--- NOTE | 2017-01-26 22:53 | ECGEPIP ---
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
[2017-01-27] VITALS: BP 112/65
[2017-01-27 07:07] LABS: BASO % 0.7 % (0.0-1.0); EOS # 0.1 K/mm3 (0.0-0.50); EOS % 2.2 % (0.0-3.0); LARGE UNSTAINED CELL # 0.2 K/mm3 (0.0-0.4); LARGE UNSTAINED CELL % 2.8 % (0.0-4.0); LYMPH # 2.7 K/mm3 (1.5-4.5); LYMPH % 43.2 % (24.0-44.0); MEAN CORPUSCULAR HEMOGLOBIN 33.7 pg (27.0-33.0); MEAN CORPUSCULAR HGB CONC 33.3 g/dl (32.0-36.5); MONO # 0.3 K/mm3 (0.0-0.8); NEUTROPHILS # 2.7 K/mm3 (1.8-7.7); NEUTROPHILS % 46.2 % (36.0-66.0); PLATELET COUNT, AUTOMATED 222 k/mm3 (150-450); RED CELL DISTRIBUTION WIDTH 12.4 % (11.5-14.5); WHITE BLOOD COUNT 5.9 K/mm3 (4.0-10.0)
[2017-01-27 07:22] LABS: ANION GAP 5 MEQ/L (8-16); BLOOD UREA NITROGEN 13 MG/DL (7-18); CALCIUM LEVEL 7.9 MG/DL (8.5-10.1); CARBON DIOXIDE LEVEL 26 MEQ/L (21-32); CHLORIDE LEVEL 108 MEQ/L (98-107); CREATININE FOR GFR 0.44 MG/DL (0.55-1.02); GLOMERULAR FILTRATION RATE > 60.0 (>60); GLUCOSE, FASTING 203 MG/DL (70-105); SODIUM LEVEL 139 MEQ/L (136-145)
[2017-01-27 08:00] VITALS: BP 127/69
[2017-01-27] MEDS ORDERED: CALCIUM GLUCONATE 1,000 MG in D5W MINI-BAG PLUS 100 ML IV ONE (08:00)
[2017-01-27] MEDS ORDERED: INSUDET SC ×4 (08:02→12:11)
[2017-01-27] MEDS ORDERED: D-CA1KIT XX (08:02)
[2017-01-27] MEDS: ENOXAPARIN 40 MG/0.4 ML SYRINGE (J1650) SC SCH (08:37)
[2017-01-27] MEDS ORDERED: LEVEMIR (INSULIN DETEMIR) 1 UNITS/0.01ML SC SCH (09:00)
[2017-01-27] MEDS: HumaLOG INSULIN (NovoLOG) PER UNIT SC SCH ×2 (09:01→12:36)
[2017-01-27] MEDS ORDERED: ADVO31MI2 XX (13:18)
--- NOTE | 2017-01-27 16:47 | DS.PDOC ---
Discharge Summary General Date of Admission Jan 25, 2017 at 13:38 Date of Discharge 01/27/17 Attending Physician: BERNARDO BECKER MD Discharge Summary PROCEDURES PERFORMED DURING STAY: None. ADMITTING/DISCHARGE DIAGNOSES: 1. Diabetic ketoacidosis 2. History of asthma 3. Tobacco abuse COMPLICATIONS/CHIEF COMPLAINT: Diabetic Ketoacidoses. HISTORY OF PRESENT ILLNESS/HOSPITAL COURSE: This is a 31-year-old female past medical history of type 1 diabetes mellitus who presents complaining of nausea/vomiting/abdominal pain. Patient was found to be in diabetic ketoacidosis. There was no source of infection as a source of etiology. The patient is likely noncompliance with her insulin and occasionally takes a third dose of Levemir for blood sugars are high. Patient states she occasionally checks her blood sugars, however no more than 1 a day if she does check her blood sugars. The patient's Did close and the patient was transitioned from insulin drip back to Levemir. I have also sent a prescription for a new glucometer, as the one she is using at home was wet and does not function very well. The patient was distracted to keep a log of her blood sugars and to bring this log to her primary care physician on the next visit, so titration of the Levemir as well as possible introduction of short-acting insulin can be implemented. The patient verbalizing understanding. She was also given diabetic education on a proper diet, as well as tobacco cessation counseling. Patient is hemodynamically stable and will be discharged today. DISCHARGE MEDICATIONS: Please see below. ALLERGIES: Please see below. PHYSICAL EXAMINATION ON DISCHARGE: Vitals: (see below) General: No acute distress, laying comfortably in bed. HEENT: Moist mucous membranes. Neck: No JVD or lymphadenopathy Cardiac: RRR, No murmurs Pulm: Minimal exp wheezing b/l. No crackles/rhonchi. Abd: NT/ND + BS. Small, hernia adjacent to the umbilicus. Reducible. Nonincarcerated. Minimal tenderness. No rebound guarding or rigidity. Ext: No edema or cyanosis LABORATORY DATA: Please see below. IMAGING: CXR 01/26/17 Impression: Negative portable chest. There is no interval change. Abd u/s 01/26/17 Impression: No mass, fluid collection or cyst is identified in the abdominal wall and the location of the palpable lump . PROGNOSIS: Fair ACTIVITY: As tolerated. DIET: Carbohydrate consistent DISCHARGE PLAN/DISPOSITION: 01 Home, Self-Care. DISCHARGE INSTRUCTIONS: 1. Follow-up with PCP in 1 week. Keep logs of blood sugars as directed. Return to the ED if symptoms worsen. DISCHARGE CONDITION: Stable. TIME SPENT ON DISCHARGE: Greater than 30 minutes. Vital Signs/I&Os Vital Signs Date Time Temp Pulse Resp B/P (MAP) Pulse Ox O2 Delivery O2 Flow Rate FiO2 01/27/17 09:00 Room Air 01/27/17 08:00 97.0 83 18 127/69 (88) 98 I&O- Last 24 Hours up to 6 AM 01/27/17 06:00 Intake Total 3420 ml Output Total 1200 ml Balance 2220 ml Laboratory Data Labs 24H Laboratory Tests 2 01/26/17 16:57: Bedside Glucose (Misc Panel) 270H 01/26/17 20:52: Bedside Glucose (Misc Panel) 233H 01/27/17 06:36: White Blood Count 5.9, Red Blood Count 3.89L, Hemoglobin 13.1, Hematocrit 39.3, Mean Corpuscular Volume 101.0H, Mean Corpuscular Hemoglobin 33.7H, Mean Corpuscular Hemoglobin Concent 33.3, Red Cell Distribution Width 12.4, Platelet Count 222, Neutrophils (%) (Auto) 46.2, Lymphocytes (%) (Auto) 43.2, Monocytes ( %) (Auto) 5.0, Eosinophils (%) (Auto) 2.2, Basophils (%) (Auto) 0.7, Neutrophils # (Auto) 2.7, Lymphocytes # (Auto) 2.7, Monocytes # (Auto) 0.3, Eosinophils # (Auto) 0.1, Basophils # (Auto) 0.0, Large Unclassified Cells % 2.8 , Large Unclassified Cells # 0.2, Anion Gap 5L, Glomerular Filtration Rate > 60.0, Blood Urea Nitrogen 13, Creatinine 0.44L, Sodium Level 139, Potassium Level 4.0, Chloride Level 108H, Carbon Dioxide Level 26, Calcium Level 7.9L 01/27/17 11:28: Bedside Glucose (Misc Panel) 321H CBC/BMP Laboratory Tests 01/27/17 06:36 Red Blood Count 3.89 L, Mean Corpuscular Volume 101.0 H, Mean Corpuscular Hemoglobin 33.7 H, Mean Corpuscular Hemoglobin Concent 33.3, Red Cell Distribution Width 12.4, Neutrophils (%) (Auto) 46.2, Lymphocytes (%) (Auto) 43.2, Monocytes (%) (Auto) 5.0, Eosinophils (%) (Auto) 2.2, Basophils (%) (Auto ) 0.7, Neutrophils # (Auto) 2.7, Lymphocytes # (Auto) 2.7, Monocytes # (Auto) 0.3, Eosinophils # (Auto) 0.1, Basophils # (Auto) 0.0, Calcium Level 7.9 L FSBS Laboratory Tests Test 01/26/17 16:57 01/26/17 20:52 01/27/17 11:28 Range/Units Bedside Glucose (Misc Panel) 270 233 321 70-105 MG/DL Microbiology Microbiology 01/25/17 Blood Culture - Preliminary, Resulted No Growth after 48 hours. All Specime... 01/25/17 Blood Culture - Preliminary, Resulted No Growth after 48 hours. All Specime... Discharge Medications Scheduled Insulin Detemir (Levemir) 1 Units/0.01 Ml Susp, 35 UNITS SC QAM Insulin Detemir (Levemir) 1 Units/0.01 Ml Susp, 20 UNITS SC QPM Allergies Coded Allergies: No Known Allergies (Verified , 12/16/06) BERNARDO BECKER MD Jan 27, 2017 16:47
== END 2017-01-27 13:45 | disposition home or self-care (01) | DRG 420 ==
LOC: M ED 11:40 → M ED INP 13:38 → M ICU 15:39 → M PED 01-26 18:19
PROVIDERS: ADMIT Internal Medicine Nephrology; ATTEND Internal Medicine
DX: E10.10 Type 1 diabetes mellitus with ketoacidosis without coma (principal); F17.210 Nicotine dependence, cigarettes, uncomplicated; Z91.14 Patient's other noncompliance with medication regimen; Z79.4 Long term (current) use of insulin; Z82.49 Family history of ischemic heart disease and other diseases of the circulatory system; Z80.1 Family history of malignant neoplasm of trachea, bronchus and lung; K46.9 Unspecified abdominal hernia without obstruction or gangrene

== ENCOUNTER → 2017-02-10 | Outpatient (CLI) | payer BC ==
[~2017-02-10] MED LIST changes: +ADVO31MI2 XX; +D-CA1KIT XX
== END ==
LOC: M OUTALCOH 09:40
PROVIDERS: ATTEND Psychiatry & Neurology Psychiatry
DX: F10.10 Alcohol abuse, uncomplicated (principal)

== ENCOUNTER → 2017-03-04 | Outpatient (CLI) | payer BC ==
[2017-03-04 16:47] LABS: BASO % 0.5 % (0.0-1.0); EOS # 0.2 K/mm3 (0.0-0.50); EOS % 1.6 % (0.0-3.0); LARGE UNSTAINED CELL # 0.1 K/mm3 (0.0-0.4); LARGE UNSTAINED CELL % 1.1 % (0.0-4.0); LYMPH # 1.9 K/mm3 (1.5-4.5); LYMPH % 18.4 % (24.0-44.0); MEAN CORPUSCULAR HEMOGLOBIN 33.4 pg (27.0-33.0); MEAN CORPUSCULAR VOLUME 101.2 fl (80.0-96.0); MONO # 0.4 K/mm3 (0.0-0.8); MONO % 4.5 % (0.0-5.0); NEUTROPHILS # 7.3 K/mm3 (1.8-7.7); PLATELET COUNT, AUTOMATED 260 k/mm3 (150-450); WHITE BLOOD COUNT 9.8 K/mm3 (4.0-10.0)
== END ==
LOC: M WUC 12:26
PROVIDERS: ATTEND Physician Assistant
DX: I20.9 Angina pectoris, unspecified (principal); L03.115 Cellulitis of right lower limb

== ENCOUNTER 2017-03-15 16:00 | Outpatient (RCR) | payer BC | END 2017-03-19 | LOC: M OUTALCOH 16:00 | PROVIDERS: ATTEND Psychiatry & Neurology Psychiatry | DX: F10.10 Alcohol abuse, uncomplicated (principal); F17.200 Nicotine dependence, unspecified, uncomplicated ==

== ENCOUNTER 2017-06-04 12:35 | Emergency (ER) | payer BC ==
[~2017-06-04] VITALS: Ht 170.2 cm; Wt 59.1 kg
[2017-06-04] MEDS ORDERED: HUMA100I5 SQ (13:00)
[2017-06-04] MEDS ORDERED: TRES1INJ2 SQ (13:00)
[2017-06-04] MEDS ORDERED: DERMABOND TOPICAL SKIN ADHESIVE TOP ONE (13:15)
[2017-06-04] MEDS ORDERED: ACETAMINOPHEN 325 MG TAB PO ONE (14:00)
[2017-06-04 14:01] LABS: MEAN CORPUSCULAR HEMOGLOBIN 32.4 pg (27.0-33.0); MEAN CORPUSCULAR HGB CONC 34.6 g/dl (32.0-36.5); MEAN CORPUSCULAR VOLUME 93.4 fl (80.0-96.0); PLATELET COUNT, AUTOMATED 289 10^3/uL (150-450); RED CELL DISTRIBUTION WIDTH 12.3 % (11.5-14.5); WHITE BLOOD COUNT 9.2 10^3/uL (4.0-10.0)
[2017-06-04 14:10] LABS: METHADONE URINE NEGATIVE (NEGATIVE)
[2017-06-04 14:19] LABS: INR 0.95
[2017-06-04 14:29] LABS: ANION GAP 10 MEQ/L (8-16); BLOOD UREA NITROGEN 7 MG/DL (7-18); CALCIUM LEVEL 8.3 MG/DL (8.5-10.1); CARBON DIOXIDE LEVEL 21 MEQ/L (21-32); CHLORIDE LEVEL 108 MEQ/L (98-107); CREATININE FOR GFR 0.54 MG/DL (0.55-1.02); GLOMERULAR FILTRATION RATE > 60.0 (>60); GLUCOSE, FASTING 184 MG/DL (70-105); HCG, SERUM QUANTITATIVE 139 MIU/ML; POTASSIUM SERUM 3.9 MEQ/L (3.5-5.1); SODIUM LEVEL 139 MEQ/L (136-145)
[2017-06-04] MEDS ORDERED: GLUCAGON FOR INJ 1 MG VIAL (J1610) SC PRN (15:00)
[2017-06-04] MEDS ORDERED: GLUCOSE 4 GM CHEW TABLET PO PRN (15:00)
[2017-06-04] MEDS ORDERED: DEXTROSE 50% 50 ML SYRINGE IV PRN (15:00)
--- NOTE | 2017-06-04 15:33 | REP ---
Right clavicle two views : There is no fracture or dislocation. Mineralization and joint spaces are normal. There are no calcifications or foreign bodies. Impression: Negative right clavicle . Signed by Jose Colindres MD 06/04/2017 03:24 P
--- NOTE | 2017-06-04 15:35 | REP ---
PA and lateral chest: Comparisons 11/27/2011. The lung macias are clear. The cardiac size is normal The heather, mediastinum, and bony thorax are unremarkable. Impression: Negative PA and lateral chest. There is no interval change. Signed by Jose Colindres MD 06/04/2017 03:26 P
--- NOTE | 2017-06-04 16:30 | REP ---
CT of the brain without IV contrast: Comparison is 10/17/2016. There is no epidural or subdural hematoma. There is no hemorrhage otherwise. There is no edema, mass effect or midline shift. Ventricles are normal size and midline. The visualized paranasal sinuses and mastoids are unremarkable. Impression: Negative CT study of the brain. There is no interval change. Signed by Jose Colindres MD 06/04/2017 04:22 P
--- NOTE | 2017-06-04 16:32 | REP ---
Maxillofacial CT without IV contrast: Axial images are acquired helical scanning and a reformatted sagittal and coronal projections. There is no nasal bone fracture. There is no orbit fracture. No zygoma fracture. The ocular lenses and globes are unremarkable. Retrobulbar fat planes are unremarkable. There is no mandibular fracture. The paranasal sinuses and mastoid air cells are clear. Impression: No facial bone fracture. Signed by Jose Colindres MD 06/04/2017 04:25 P
[2017-06-04] MEDS ORDERED: HumaLOG INSULIN (NovoLOG) PER UNIT SC SCH ×2 (17:30→21:00)
[2017-06-04 18:04] VITALS: BP 118/63
== END 2017-06-04 18:05 | disposition home or self-care (01) ==
LOC: EDBD 12:35 → M ED 12:35
DX: S01.111A Laceration without foreign body of right eyelid and periocular area, initial encounter (principal); Y04.8XXA Assault by other bodily force, initial encounter; Y92.099 Unspecified place in other non-institutional residence as the place of occurrence of the external cause; Y93.9 Activity, unspecified; Y99.9 Unspecified external cause status; E11.9 Type 2 diabetes mellitus without complications; F17.200 Nicotine dependence, unspecified, uncomplicated; Z79.4 Long term (current) use of insulin
CPT/HCPCS: 70450; 70486; 71020; 73000; 80048; 80307; 81025; 83735; 84702; 85027; 85610; 99284; G0480

== ENCOUNTER 2017-06-12 08:41 | Emergency (ER) | payer BC, MEDICAID ==
[~2017-06-12] VITALS: Ht 170.2 cm; Wt 61.9 kg
[~2017-06-12 08:41] MED LIST changes: +HUMA100I5 SQ; +TRES1INJ2 SQ
[2017-06-12] MEDS ORDERED: NS 1,000 ML IV ONE (09:15)
[2017-06-12] MEDS ORDERED: METOCLOPRAMIDE INJ 10MG/2ML VIAL (J2765) IV ONE (09:15)
--- NOTE | 2017-06-12 09:43 | REP ---
Clinical: Right foot pain Technique: AP, lateral views right foot . Findings: The osseous structures and joint spaces are intact and normal. There is no evidence for acute fracture or dislocation. Surrounding soft tissues are unremarkable. No subcutaneous emphysema or radiodense foreign body. Impression: Normal right foot series . No acute fracture or dislocation. Signed by Gian Lopez MD 06/12/2017 09:33 A
[2017-06-12 09:56] LABS: BASO # 0.1 10^3/uL (0.0-0.2); BASO % 0.6 % (0.0-1.0); EOS # 0.1 10^3/uL (0.0-0.50); EOS % 1.2 % (0.0-3.0); IMMATURE GRANULOCYTE % 0.6 % (0-0); LYMPH # 3.8 10^3/uL (1.5-4.5); LYMPH % 33.3 % (24.0-44.0); MEAN CORPUSCULAR HEMOGLOBIN 32.9 pg (27.0-33.0); MEAN CORPUSCULAR HGB CONC 35.2 g/dl (32.0-36.5); MEAN CORPUSCULAR VOLUME 93.5 fl (80.0-96.0); MONO # 0.8 10^3/uL (0.0-0.8); NEUTROPHILS # 6.5 10^3/uL (1.8-7.7); NEUTROPHILS % 57.3 % (36.0-66.0); PLATELET COUNT, AUTOMATED 282 10^3/uL (150-450); RED CELL DISTRIBUTION WIDTH 11.9 % (11.5-14.5); WHITE BLOOD COUNT 11.3 10^3/uL (4.0-10.0)
[2017-06-12 10:15] LABS: METHADONE URINE NEGATIVE (NEGATIVE)
[2017-06-12 10:32] LABS: ALBUMIN/GLOBULIN RATIO 1.14 (1.00-1.93); ALKALINE PHOSPHATASE 70 U/L (45-117); ALT/SGPT 53 U/L (12-78); ANION GAP 12 MEQ/L (8-16); AST/SGOT 48 U/L (7-37); BILIRUBIN,DIRECT 0.1 MG/DL (0.0-0.2); BILIRUBIN,TOTAL 0.6 MG/DL (0.2-1.0); BLOOD UREA NITROGEN 29 MG/DL (7-18); CALCIUM LEVEL 8.3 MG/DL (8.5-10.1); CARBON DIOXIDE LEVEL 23 MEQ/L (21-32); CHLORIDE LEVEL 98 MEQ/L (98-107); CREATININE FOR GFR 0.57 MG/DL (0.55-1.02); GLOMERULAR FILTRATION RATE > 60.0 (>60); GLUCOSE, FASTING 238 MG/DL (70-105); HCG, SERUM QUANTITATIVE 2230 MIU/ML; POTASSIUM SERUM 4.6 MEQ/L (3.5-5.1); SODIUM LEVEL 133 MEQ/L (136-145); TOTAL PROTEIN 7.5 GM/DL (6.4-8.2)
--- NOTE | 2017-06-12 11:05 | REP ---
Clinical: Pain. Dating and viability. Technique: Transabdominal and transvaginal first trimester obstetrical ultrasound with color Doppler evaluation. Findings: Anteverted uterus measures 9.3 x 5.0 x 6.5 cm and a gestational sac with yolk sac identified. No pole is appreciated. Mean sac diameter of 7.3 mm corresponds to 5 weeks 3 days gestational age. Bilateral maternal ovaries are normal in appearance and vascularity without torsion. 2.6 cm right corpus luteal cyst is suggested. No pelvic fluid. Impression: Gestational sac with yolk sac but no pole identified. Differential diagnosis includes early intrauterine and less likely spontaneous or ectopic which cannot be excluded. Correlation with serial HCG levels recommended. Signed by Gian Lopez MD 06/12/2017 10:57 A
[2017-06-12] MEDS ORDERED: D-CA1KIT XX (12:11)
[2017-06-12 12:49] VITALS: BP 132/67
== END 2017-06-12 12:52 | disposition home or self-care (01) ==
LOC: M ED 08:41
DX: O98.511 Other viral diseases complicating pregnancy, first trimester (principal); B07.0 Plantar wart; O99.311 Alcohol use complicating pregnancy, first trimester; O24.111 Pre-existing type 2 diabetes mellitus, in pregnancy, first trimester; O26.891 Other specified pregnancy related conditions, first trimester; O99.511 Diseases of the respiratory system complicating pregnancy, first trimester; O99.331 Smoking (tobacco) complicating pregnancy, first trimester; Z3A.01 Less than 8 weeks gestation of pregnancy; Z87.440 Personal history of urinary (tract) infections; Z79.4 Long term (current) use of insulin; Z79.899 Other long term (current) drug therapy
CPT/HCPCS: 73630; 76801; 76817; 80048; 80076; 80307; 81001; 83690; 84702; 85025; 93976; 96361; 96374; 99284; G0480; J2765

== ENCOUNTER → 2017-06-30 | Outpatient (REF) | payer MEDICAID ==
[2017-07-01 17:54] LABS: RUBELLA IgG QUALITATIVE IMMUNE (IMMUNE)
[2017-07-01 18:08] LABS: HEPATITIS B SURFACE ANTIGEN NEGATIVE (NEGATIVE)
[2017-07-01 18:18] LABS: HEPATITIS C VIRUS ABY INDEX 0.1 INDEX (<0.8)
[2017-07-01 18:27] LABS: HIV 1&2 SCREEN CENTAUR NEGATIVE (NEGATIVE)
== END ==
LOC: M LAB REF 18:18
DX: Z34.81 Encounter for supervision of other normal pregnancy, first trimester (principal); Z3A.08 8 weeks gestation of pregnancy

== ENCOUNTER → 2017-07-22 | Outpatient (REF) | payer OTHER ==
[2017-07-22 14:29] LABS: FREE T4 0.93 NG/DL (0.76-1.46)
[2017-07-22 14:54] LABS: ESTIMATED AVERAGE GLUCOSE 214 MG/DL (60-110); HEMOGLOBIN A1c 9.1 %
== END ==
LOC: M LAB REF 13:24
DX: O09.891 Supervision of other high risk pregnancies, first trimester (principal); O24.111 Pre-existing type 2 diabetes mellitus, in pregnancy, first trimester; Z3A.00 Weeks of gestation of pregnancy not specified
CPT/HCPCS: 84443

== ENCOUNTER 2017-07-26 03:52 | Emergency (ER) | payer OTHER | END 2017-07-26 05:14 | disposition left against medical advice (07) | LOC: M ED 03:52 | DX: T76.11XA Adult physical abuse, suspected, initial encounter (principal); Y92.9 Unspecified place or not applicable; Y93.9 Activity, unspecified; Z53.21 Procedure and treatment not carried out due to patient leaving prior to being seen by health care provider ==

== ENCOUNTER 2017-07-29 10:51 | Emergency (ER) | payer OTHER ==
[2017-07-29] MEDS: ACETAMINOPHEN 325 MG TAB PO (12:19)
== END 2017-07-29 13:12 | disposition home or self-care (01) ==
LOC: M ED 10:51
DX: S06.0X0A Concussion without loss of consciousness, initial encounter (principal); S05.12XA Contusion of eyeball and orbital tissues, left eye, initial encounter; Y04.8XXA Assault by other bodily force, initial encounter; Y92.099 Unspecified place in other non-institutional residence as the place of occurrence of the external cause; Y93.9 Activity, unspecified; K21.9 Gastro-esophageal reflux disease without esophagitis; J45.909 Unspecified asthma, uncomplicated; E11.9 Type 2 diabetes mellitus without complications; Z79.4 Long term (current) use of insulin
CPT/HCPCS: 70450

== ENCOUNTER → 2017-07-29 | Day surgery (SDC) | payer OTHER ==
[~2017-07-29] MED LIST changes: -ACCUCHECK; +ACETAMINOPHEN 650 MG SUPP As Ordered; -ADVO31MI2 XX; -ALBUTEROL INH; -ALCOHOL SWABS; -ASPI81TA45 OR; -D-CA1KIT XX; -FOLI1TAB4 PO; -HABITROL14 TOPICAL; -HABITROL2 TOPICAL; -HABITROL7 TOPICAL; -HUMA100I5 SQ; +HYDROmorphone HCL 1 MG/ML SYRINGE (J1170) As Ordered; +IBUPROFEN 800 MG TAB PO; -INSUDET SC; -INSULANT SC; -INSULIN SYRINGES; -INSURSD SC; +KETOROLAC 30 MG/ML VIAL (J1885) IV; -LANCET; -LEVA500T; +LIDOCAINE 2% INJ 100 MG/5 ML SDV (FOR ANES.) As Ordered; -LISPRO; +LR 1,000 ML IV; -METF500T4 OR; +METHYLERGONOVINE MALEATE 0.2 MG/ML VIAL (J2210) As Ordered; +MIDAZOLAM INJ 2 MG/2 ML VIAL (J2250) As Ordered; -NAPROS500 PO; -NEXIUM40 PO; -NICOTROLIN PO; -NOVOLOG100 MG/ML; +ONDANSETRON 4MG/2ML VIAL (J2405) As Ordered; +ONDANSETRON 4MG/2ML VIAL (J2405) IV; +PERCOCET 5MG/325MG TAB As Ordered; +PERCOCET 5MG/325MG TAB PO; +PROPOFOL 200 MG/20 ML VIAL As Ordered; -THIA100T6 PO; -TRES1INJ2 SQ; -[UNRECOGNIZED DRUG - CODE] PO; +dexameTHASONE 4 MG/ML 1ML VIAL (J1100) As Ordered; +fentaNYL 100 MCG/2 ML INJECTION (J3010) As Ordered; +fentaNYL 100 MCG/2 ML INJECTION (J3010) IV
[2017-07-29 13:32] LABS: HEMATOCRIT 38.6 % (36.0-47.0); MEAN CORPUSCULAR HEMOGLOBIN 32.7 pg (27.0-33.0); MEAN CORPUSCULAR HGB CONC 33.7 g/dl (32.0-36.5); MEAN CORPUSCULAR VOLUME 97.2 fl (80.0-96.0); PLATELET COUNT, AUTOMATED 235 10^3/uL (150-450); RED BLOOD COUNT 3.97 10^6/uL (4.00-5.40); RED CELL DISTRIBUTION WIDTH 12.1 % (11.5-14.5); WHITE BLOOD COUNT 7.7 10^3/uL (4.0-10.0)
[2017-07-29 13:33] LABS: BEDSIDE GLUCOSE 248 MG/DL (70-105)
[2017-07-29] MEDS: ACETAMINOPHEN 650 MG SUPP PR (14:06)
[2017-07-29] MEDS: HYDROmorphone HCL 1 MG/ML SYRINGE (J1170) IV ×3 (14:35→14:45)
[2017-07-29] MEDS: PERCOCET 5MG/325MG TAB PO (14:37)
[2017-07-29] MEDS: HumaLOG INSULIN (NovoLOG) PER UNIT SC (14:50)
[2017-07-29 16:25] LABS: BEDSIDE GLUCOSE 189 MG/DL (70-105)
[2017-08-01 11:11] LABS: BEDSIDE GLUCOSE 253 MG/DL (70-105)
== END | disposition home or self-care (01) ==
LOC: M SDC 13:07
DX: O02.1 Missed abortion (principal); E10.9 Type 1 diabetes mellitus without complications; Z79.4 Long term (current) use of insulin; F41.9 Anxiety disorder, unspecified; J45.909 Unspecified asthma, uncomplicated; O99.331 Smoking (tobacco) complicating pregnancy, first trimester; Z3A.08 8 weeks gestation of pregnancy
CPT/HCPCS: 59820

== ENCOUNTER 2018-01-21 20:18 | Emergency (ER) | payer OTHER ==
[2018-01-21 21:26] LABS: BEDSIDE GLUCOSE 445 MG/DL (70-105)
[2018-01-21 21:55] LABS: BASO # 0.1 10^3/uL (0.0-0.2); BASO % 0.7 % (0.0-1.0); EOS # 0.2 10^3/uL (0.0-0.50); EOS % 2.1 % (0.0-3.0); HEMATOCRIT 38.8 % (36.0-47.0); HEMOGLOBIN 13.8 g/dl (12.0-15.5); IMMATURE GRANULOCYTE % 0.7 % (0-3.0); LYMPH # 3.3 10^3/uL (1.5-4.5); LYMPH % 39.6 % (24.0-44.0); MEAN CORPUSCULAR HEMOGLOBIN 34.5 pg (27.0-33.0); MEAN CORPUSCULAR HGB CONC 35.6 g/dl (32.0-36.5); MONO # 0.5 10^3/uL (0.0-0.8); MONO % 5.8 % (0.0-5.0); NEUTROPHILS # 4.2 10^3/uL (1.8-7.7); NEUTROPHILS % 51.1 % (36.0-66.0); PLATELET COUNT, AUTOMATED 282 10^3/uL (150-450); WHITE BLOOD COUNT 8.2 10^3/uL (4.0-10.0)
[2018-01-21] MEDS: NS 1,000 ML IV (21:57)
[2018-01-21] MEDS: HumuLIN R (REGULAR) INSULIN (NovoLIN R) **100U/ML** PER UNIT IV (21:57)
[2018-01-21] MEDS: ACETAMINOPHEN TAB 650MG DOSE (2X325MG) PO (22:00)
[2018-01-21 22:02] LABS: KETONE, URINE AUTO RFX TRACE mg/dL (NEGATIVE); LEUKOCYTE ESTERASE UR AUTO RFX NEGATIVE (NEGATIVE); NITRITE, URINE AUTO RFX NEGATIVE (NEGATIVE); RBC, URINE AUTO RFX 0 /HPF (0-3); SPECIFIC GRAVITY UR AUTO RFX 1.018 (1.002-1.035); SQUAM EPITHELIAL CELL UR AURFX 0 /HPF (0-6); WBC, URINE AUTO RFX 0 /HPF (0-3)
[2018-01-21 22:04] LABS: ALBUMIN 3.8 GM/DL (3.2-5.2); ALBUMIN/GLOBULIN RATIO 0.95 (1.00-1.93); ALKALINE PHOSPHATASE 90 U/L (45-117); ALT/SGPT 53 U/L (12-78); ANION GAP 14 MEQ/L (8-16); AST/SGOT 136 U/L (7-37); BILIRUBIN,DIRECT < 0.1 MG/DL (0.0-0.2); BILIRUBIN,TOTAL 0.3 MG/DL (0.2-1.0); BLOOD UREA NITROGEN 12 MG/DL (7-18); CALCIUM LEVEL 8.6 MG/DL (8.5-10.1); CARBON DIOXIDE LEVEL 21 MEQ/L (21-32); CHLORIDE LEVEL 102 MEQ/L (98-107); CREATININE FOR GFR 0.76 MG/DL (0.55-1.30); ETHYL ALCOHOL (ETHANOL) 0.263 % (0.000-0.010); GLOMERULAR FILTRATION RATE > 60.0 (>60); LIPASE 115 U/L (73-393); POTASSIUM SERUM 4.1 MEQ/L (3.5-5.1); SODIUM LEVEL 137 MEQ/L (136-145); TOTAL PROTEIN 7.8 GM/DL (6.4-8.2)
[2018-01-21 22:06] LABS: GLUCOSE, FASTING 443 MG/DL (70-100)
[2018-01-21 22:11] LABS: AMPHETAMINES LEVEL URINE NEGATIVE (NEGATIVE); BARBITURATES URINE NEGATIVE (NEGATIVE); BENZODIAZEPINES URINE NEGATIVE (NEGATIVE); CANNABINOIDS URINE NEGATIVE (NEGATIVE); COCAINE METABOLITE URINE POSITIVE (NEGATIVE); METHADONE URINE NEGATIVE (NEGATIVE); OPIATES URINE NEGATIVE (NEGATIVE); PHENCYCLIDINE URINE NEGATIVE (NEGATIVE)
[2018-01-21 22:19] LABS: ESTIMATED AVERAGE GLUCOSE 240 MG/DL (60-110)
[2018-01-21 23:13] LABS: BEDSIDE GLUCOSE 146 MG/DL (70-105)
[2018-01-21 23:22] LABS: VENOUS HCO3 17.8 MEQ/L (23.0-27.0); VENOUS O2 SATURATION 93.3 % (60.0-80.0); VENOUS PARTIAL PRESSURE CO2 34.2 mmHg (38.0-50.0); VENOUS PARTIAL PRESSURE O2 71.9 mmHg (30.0-50.0); VENOUS PH 7.335 UNITS (7.330-7.430); VENOUS STANDARD HCO3 18.7 MEQ/L; VENOUS TOTAL CO2 18.9 MEQ/L (24.0-28.0)
[2018-01-22] MEDS: NORCO 5/325MG TABLET (BULK FOR ED) PO
[2018-01-24 10:57] LABS: BEDSIDE GLUCOSE 444 MG/DL (70-105)
== END 2018-01-22 00:25 | disposition home or self-care (01) ==
LOC: M ED 01-22 00:25
DX: E11.9 Type 2 diabetes mellitus without complications (principal); Z91.14 Patient's other noncompliance with medication regimen; F10.129 Alcohol abuse with intoxication, unspecified; S80.02XA Contusion of left knee, initial encounter; S20.219A Contusion of unspecified front wall of thorax, initial encounter; W17.4XXA Fall from dock, initial encounter; Y92.89 Other specified places as the place of occurrence of the external cause; J45.909 Unspecified asthma, uncomplicated; Z79.899 Other long term (current) drug therapy; F17.210 Nicotine dependence, cigarettes, uncomplicated
CPT/HCPCS: 71045

== ENCOUNTER 2018-05-29 02:31 | Inpatient (IN) | payer MEDICAID, OTHER ==
[2018-05-29 02:41] LABS: BEDSIDE GLUCOSE 341 MG/DL (70-105)
[2018-05-29 02:49] LABS: HEMATOCRIT 41.7 % (36.0-47.0); HEMOGLOBIN 14.4 g/dl (12.0-15.5); MEAN CORPUSCULAR HEMOGLOBIN 33.7 pg (27.0-33.0); MEAN CORPUSCULAR HGB CONC 34.5 g/dl (32.0-36.5); MEAN CORPUSCULAR VOLUME 97.7 fl (80.0-96.0); PLATELET COUNT, AUTOMATED 315 10^3/uL (150-450); RED BLOOD COUNT 4.27 10^6/uL (4.00-5.40); RED CELL DISTRIBUTION WIDTH 11.8 % (11.5-14.5); WHITE BLOOD COUNT 10.7 10^3/uL (4.0-10.0)
[2018-05-29] MEDS: MIDAZOLAM INJ 5 MG/ML VIAL (J2250) IM (03:05)
[2018-05-29 03:09] LABS: CONTROL LINE HCG INT CTR LINE PRESENT; HCG, SERUM QUALITATIVE NEGATIVE (NEGATIVE)
[2018-05-29 03:37] LABS: AMPHETAMINES LEVEL URINE NEGATIVE (NEGATIVE); BARBITURATES URINE NEGATIVE (NEGATIVE); BENZODIAZEPINES URINE NEGATIVE (NEGATIVE); CANNABINOIDS URINE NEGATIVE (NEGATIVE); COCAINE METABOLITE URINE POSITIVE (NEGATIVE); METHADONE URINE NEGATIVE (NEGATIVE); OPIATES URINE NEGATIVE (NEGATIVE); PHENCYCLIDINE URINE NEGATIVE (NEGATIVE)
[2018-05-29 04:32] LABS: ACETAMINOPHEN LEVEL < 2.0 UG/ML (10.0-30.0); ALBUMIN 4.2 GM/DL (3.2-5.2); ALBUMIN/GLOBULIN RATIO 1.05 (1.00-1.93); ALKALINE PHOSPHATASE 76 U/L (45-117); ALT/SGPT 18 U/L (12-78); ANION GAP 14 MEQ/L (8-16); AST/SGOT 17 U/L (7-37); BILIRUBIN,DIRECT 0.1 MG/DL (0.0-0.2); BILIRUBIN,TOTAL 0.3 MG/DL (0.2-1.0); BLOOD UREA NITROGEN 8 MG/DL (7-18); CALCIUM LEVEL 8.9 MG/DL (8.5-10.1); CARBON DIOXIDE LEVEL 21 MEQ/L (21-32); CHLORIDE LEVEL 103 MEQ/L (98-107); CREATININE FOR GFR 0.72 MG/DL (0.55-1.30); ETHYL ALCOHOL (ETHANOL) 0.328 % (0.000-0.010); GLOMERULAR FILTRATION RATE > 60.0 (>60); GLUCOSE, FASTING 338 MG/DL (70-100); POTASSIUM SERUM 4.6 MEQ/L (3.5-5.1); SALICYLATE LEVEL 2.7 MG/DL (5.0-30.0); SODIUM LEVEL 138 MEQ/L (136-145); THYROID STIMULATING HORMONE 0.821 uIU/ML (0.358-3.740); TOTAL PROTEIN 8.2 GM/DL (6.4-8.2)
[2018-05-29] MEDS: OXAZEPAM 15 MG CAP PO (04:55)
[2018-05-29 07:22] LABS: BEDSIDE GLUCOSE 352 MG/DL (70-105)
[2018-05-29] MEDS: NS 1,000 ML IV (07:36)
[2018-05-29 08:08] LABS: ANION GAP 14 MEQ/L (8-16); BLOOD UREA NITROGEN 8 MG/DL (7-18); CALCIUM LEVEL 8.3 MG/DL (8.5-10.1); CARBON DIOXIDE LEVEL 22 MEQ/L (21-32); CHLORIDE LEVEL 99 MEQ/L (98-107); CREATININE FOR GFR 0.61 MG/DL (0.55-1.30); GLOMERULAR FILTRATION RATE > 60.0 (>60); GLUCOSE, FASTING 355 MG/DL (70-100); POTASSIUM SERUM 4.1 MEQ/L (3.5-5.1); SODIUM LEVEL 135 MEQ/L (136-145)
[2018-05-29] MEDS: HumuLIN R (REGULAR) INSULIN (NovoLIN R) **100U/ML** PER UNIT SC ×2 (08:22→18:08)
[2018-05-29] MEDS: HumuLIN N INSULIN (NovoLIN N) PER UNIT SC (09:20)
[2018-05-29 10:19] LABS: BEDSIDE GLUCOSE 262 MG/DL (70-105)
[2018-05-29 12:19] LABS: BEDSIDE GLUCOSE 263 MG/DL (70-105)
[2018-05-29 17:00] LABS: BEDSIDE GLUCOSE 375 MG/DL (70-105)
[2018-05-29] MEDS: HumaLOG INSULIN (NovoLOG) PER UNIT SC (21:00)
[2018-05-29] MEDS ORDERED: OLANZapine ORAL DISINTEGRATING TAB 5MG PO (21:15)
[2018-05-29] MEDS ORDERED: ACETAMINOPHEN TAB 650MG DOSE (2X325MG) PO (21:15)
[2018-05-29] MEDS ORDERED: MAALOX 30 ML SUSP *UDC PO (21:15)
[2018-05-29] MEDS ORDERED: MOM 30ML SUSPENSION UDC PO (21:15)
[2018-05-29] MEDS ORDERED: traZODone 50 MG TAB PO (21:15)
[2018-05-29] MEDS ORDERED: LORazepam 2 MG TAB PO (21:30)
[2018-05-29] MEDS ORDERED: GLUCOSE 4 GM CHEW TABLET PO (21:45)
[2018-05-29] MEDS ORDERED: DEXTROSE 50% 50 ML SYRINGE IV (21:45)
[2018-05-29] MEDS ORDERED: GLUCAGON FOR INJ 1 MG VIAL (J1610) SC (21:45)
[2018-05-29] MEDS: OLANZapine ORAL DISINTEGRATING TAB 5MG PO (22:09)
[2018-05-29] MEDS: THIAMINE 100 MG TAB PO (22:12)
[2018-05-29] MEDS: diphenhydrAMINE 25 MG CAP PO (22:12)
[2018-05-29 22:15] LABS: BEDSIDE GLUCOSE 328 MG/DL (70-105)
[2018-05-30 06:32] LABS: BEDSIDE GLUCOSE 420 MG/DL (70-105)
[2018-05-30] MEDS: HumaLOG INSULIN (NovoLOG) PER UNIT SC ×3 (06:34→17:25)
[2018-05-30] MEDS: metFORMIN (GLUCOPHAGE) 500 MG TAB PO (07:58)
[2018-05-30 08:01] LABS: BEDSIDE GLUCOSE 257 MG/DL (70-105)
[2018-05-30 08:40] LABS: BEDSIDE GLUCOSE 195 MG/DL (70-105)
[2018-05-30] MEDS: NICOTINE 21MG/24HR 1 EA TRANSDERMAL TD (09:00)
[2018-05-30] MEDS: THIAMINE 100 MG TAB PO (09:00)
[2018-05-30] MEDS: FOLIC ACID 1 MG TAB PO (09:00)
[2018-05-30] MEDS: MULTIVITAMINS/MINERALS THERAP 1 TAB PO (09:00)
[2018-05-30 09:49] LABS: HEMATOCRIT 39.4 % (36.0-47.0); HEMOGLOBIN 13.4 g/dl (12.0-15.5); PLATELET COUNT, AUTOMATED 245 10^3/uL (150-450); RED BLOOD COUNT 4.06 10^6/uL (4.00-5.40); RED CELL DISTRIBUTION WIDTH 11.9 % (11.5-14.5); WHITE BLOOD COUNT 6.4 10^3/uL (4.0-10.0)
[2018-05-30 10:34] LABS: ALBUMIN 3.6 GM/DL (3.2-5.2); ALBUMIN/GLOBULIN RATIO 1.06 (1.00-1.93); ALKALINE PHOSPHATASE 60 U/L (45-117); ALT/SGPT 15 U/L (12-78); ANION GAP 5 MEQ/L (8-16); AST/SGOT 12 U/L (7-37); BILIRUBIN,TOTAL 0.5 MG/DL (0.2-1.0); BLOOD UREA NITROGEN 14 MG/DL (7-18); CALCIUM LEVEL 8.8 MG/DL (8.5-10.1); CARBON DIOXIDE LEVEL 29 MEQ/L (21-32); CHLORIDE LEVEL 104 MEQ/L (98-107); CREATININE FOR GFR 0.66 MG/DL (0.55-1.30); GLOMERULAR FILTRATION RATE > 60.0 (>60); GLUCOSE, FASTING 235 MG/DL (70-100); SODIUM LEVEL 138 MEQ/L (136-145)
[2018-05-30] MEDS: HumuLIN N INSULIN (NovoLIN N) PER UNIT SC (10:40)
[2018-05-30 11:33] LABS: ESTIMATED AVERAGE GLUCOSE 263 MG/DL (60-110); HEMOGLOBIN A1c 10.8 %
[2018-05-30 11:42] LABS: BEDSIDE GLUCOSE 221 MG/DL (70-105)
[2018-05-30 17:06] LABS: BEDSIDE GLUCOSE 248 MG/DL (70-105)
[2018-05-30] MEDS ORDERED: HumaLOG INSULIN (NovoLOG) PER UNIT SC (21:00)
[2019-05-29] MEDS ORDERED: HumaLOG INSULIN (NovoLOG) PER UNIT SC (21:00)
== END 2018-05-30 17:58 | disposition home or self-care (01) | DRG 775 ==
LOC: M ED 02:31 → M PSY 20:47
PROVIDERS: Psychiatry & Neurology Psychiatry
DX: F10.94 Alcohol use, unspecified with alcohol-induced mood disorder (principal); Z79.4 Long term (current) use of insulin; F41.9 Anxiety disorder, unspecified; R45.851 Suicidal ideations; E11.9 Type 2 diabetes mellitus without complications; J45.909 Unspecified asthma, uncomplicated; M54.5 Low back pain; F17.200 Nicotine dependence, unspecified, uncomplicated

== ENCOUNTER → 2018-06-05 | Outpatient (REF) | payer OTHER, MEDICAID ==
[~2018-06-05] MED LIST changes: +ACCUCHECK; -ACETAMINOPHEN 650 MG SUPP As Ordered; +ADVO31MI2 XX; +ALBUTEROL INH; +ALCOHOL SWABS; +ASPI81TA45 OR; +D-CA1KIT XX; +FOLI1TAB5 PO; +HABITROL14 TOPICAL; +HABITROL2 TOPICAL; +HABITROL7 TOPICAL; +HUMA100I5 SQ; -HYDROmorphone HCL 1 MG/ML SYRINGE (J1170) As Ordered; +IBUP80TA PO; -IBUPROFEN 800 MG TAB PO; +INSUDET SC; +INSULANT SC; +INSULIN SYRINGES; +INSUNSD SC; +INSURSD SC; +INSURSDRX SC; -KETOROLAC 30 MG/ML VIAL (J1885) IV; +LANCET; +LEVA500T; -LIDOCAINE 2% INJ 100 MG/5 ML SDV (FOR ANES.) As Ordered; +LISPRO; -LR 1,000 ML IV; +METF500T4 OR; -METHYLERGONOVINE MALEATE 0.2 MG/ML VIAL (J2210) As Ordered; -MIDAZOLAM INJ 2 MG/2 ML VIAL (J2250) As Ordered; +NAPROS500 PO; +NEXIUM40 PO; +NICO21PAT TD; +NICOTROLIN PO; +NORCOTAB PO; +NOVOLOG100 MG/ML; -ONDANSETRON 4MG/2ML VIAL (J2405) As Ordered; -ONDANSETRON 4MG/2ML VIAL (J2405) IV; -PERCOCET 5MG/325MG TAB As Ordered; -PERCOCET 5MG/325MG TAB PO; -PROPOFOL 200 MG/20 ML VIAL As Ordered; +THIA100T7 PO; +THIA100TA PO; +TRAZO50TA PO; +TRES1INJ2 SQ; +TYLE1TAB5 PO; +VENTAER IN; +VITMTA PO; +[UNRECOGNIZED DRUG - CODE] PO; -dexameTHASONE 4 MG/ML 1ML VIAL (J1100) As Ordered; -fentaNYL 100 MCG/2 ML INJECTION (J3010) As Ordered; -fentaNYL 100 MCG/2 ML INJECTION (J3010) IV
[2018-06-05 19:17] LABS: HEMOGLOBIN A1c 10.5 %
== END ==
LOC: M SFHCPLAZ 15:53
PROVIDERS: ATTEND Physician Assistant Medical
DX: E10.65 Type 1 diabetes mellitus with hyperglycemia (principal)

== ENCOUNTER → 2019-01-07 | Outpatient (CLI) | payer OTHER ==
[~2019-01-07] MED LIST changes: +FOLI1TAB11 PO; -FOLI1TAB5 PO; +HYDR-3715 PO; -NORCOTAB PO; +TRAZ1TAB10 PO; -TRAZO50TA PO
[2019-01-07 16:25] LABS: HEMATOCRIT 41.9 % (36.0-47.0); HEMOGLOBIN 14.2 g/dl (12.0-15.5); MEAN CORPUSCULAR HEMOGLOBIN 33.6 pg (27.0-33.0); MEAN CORPUSCULAR HGB CONC 33.9 g/dl (32.0-36.5); MEAN CORPUSCULAR VOLUME 99.3 fl (80.0-96.0); PLATELET COUNT, AUTOMATED 307 10^3/uL (150-450); RED BLOOD COUNT 4.22 10^6/uL (4.00-5.40); WHITE BLOOD COUNT 9.6 10^3/uL (4.0-10.0)
[2019-01-07 16:54] LABS: ALBUMIN 4.2 GM/DL (3.2-5.2); ALT/SGPT 21 U/L (12-78); AMYLASE 41 U/L (25-115); BILIRUBIN,TOTAL 0.5 MG/DL (0.2-1.0); BLOOD UREA NITROGEN 12 MG/DL (7-18); CALCIUM LEVEL 9.2 MG/DL (8.5-10.1); CARBON DIOXIDE LEVEL 26 MEQ/L (21-32); CHLORIDE LEVEL 102 MEQ/L (98-107); CREATININE FOR GFR 0.74 MG/DL (0.55-1.30); GLOMERULAR FILTRATION RATE > 60.0 (>60); GLUCOSE, FASTING 239 MG/DL (70-100); LIPASE 98 U/L (73-393); POTASSIUM SERUM 4.2 MEQ/L (3.5-5.1); SODIUM LEVEL 136 MEQ/L (136-145)
[2019-01-07 22:30] LABS: APPEARANCE, URINE CLEAR (CLEAR); BACTERIA, URINE AUTO NEGATIVE (NEGATIVE); BILIRUBIN, URINE AUTO NEGATIVE (NEGATIVE); BLOOD, URINE BLOOD NEGATIVE (NEGATIVE); COLOR, URINE YELLOW (YELLOW); GLUCOSE, URINE (UA) AUTO 3+ mg/dL (NEGATIVE); KETONE, URINE AUTO 1+ mg/dL (NEGATIVE); LEUKOCYTE ESTERASE, URINE AUTO NEGATIVE (NEGATIVE); NITRITE, URINE AUTO NEGATIVE (NEGATIVE); PROTEIN, URINE AUTO NEGATIVE (NEGATIVE); RBC, URINE AUTO 0 /HPF (0-3); SPECIFIC GRAVITY URINE AUTO 1.036 (1.002-1.035); SQUAMOUS EPITHELIAL CELL UR AU 1 /HPF (0-6); UROBILINOGEN, URINE AUTO 0.2 mg/dL (0.0-2.0); WBC, URINE AUTO 0 /HPF (0-3)
== END ==
LOC: M LAB 14:59
PROVIDERS: ATTEND Physician Assistant Medical
DX: N39.0 Urinary tract infection, site not specified (principal); E10.9 Type 1 diabetes mellitus without complications; R10.10 Upper abdominal pain, unspecified

== ENCOUNTER 2019-04-29 10:04 | Emergency (ER) | payer OTHER, SELFPAY ==
[~2019-04-29] VITALS: Ht 170.2 cm; Wt 64.9 kg
[2019-04-29] MEDS ORDERED: NS 1,000 ML IV SCH (10:24)
[2019-04-29 11:07] LABS: VENOUS HCO3 20.2 MEQ/L (23.0-27.0); VENOUS O2 SATURATION 83.6 % (60.0-80.0); VENOUS PARTIAL PRESSURE CO2 37.9 mmHg (38.0-50.0); VENOUS PARTIAL PRESSURE O2 51.3 mmHg (30.0-50.0); VENOUS PH 7.344 UNITS (7.330-7.430); VENOUS STANDARD HCO3 20.1 MEQ/L; VENOUS TOTAL CO2 21.3 MEQ/L (24.0-28.0)
[2019-04-29 11:24] LABS: BASO # 0.1 10^3/uL (0.0-0.2); BASO % 1.1 % (0.0-1.0); EOS # 0.2 10^3/uL (0.0-0.5); HEMATOCRIT 40.3 % (36.0-47.0); HEMOGLOBIN 13.7 g/dl (12.0-15.5); LYMPH # 2.7 10^3/uL (1.5-5.0); LYMPH % 36.7 % (24.0-44.0); MEAN CORPUSCULAR HEMOGLOBIN 33.5 pg (27.0-33.0); MEAN CORPUSCULAR VOLUME 98.5 fl (80.0-96.0); MONO # 0.6 10^3/uL (0.0-0.8); NEUTROPHILS # 3.8 10^3/uL (1.5-8.5); NEUTROPHILS % 50.8 % (36.0-66.0); PLATELET COUNT, AUTOMATED 307 10^3/uL (150-450); RED BLOOD COUNT 4.09 10^6/uL (4.00-5.40); WHITE BLOOD COUNT 7.4 10^3/uL (4.0-10.0)
[2019-04-29] MEDS ORDERED: NS 1,000 ML IV ONE (11:30)
[2019-04-29 11:51] LABS: BLOOD UREA NITROGEN 12 MG/DL (7-18); CREATININE FOR GFR 0.55 MG/DL (0.55-1.30); GLOMERULAR FILTRATION RATE > 60.0 (>60); GLUCOSE, FASTING 157 MG/DL (70-100)
[2019-04-29 11:52] LABS: ALT/SGPT 25 U/L (12-78); CALCIUM LEVEL 8.8 MG/DL (8.5-10.1); CARBON DIOXIDE LEVEL 22 MEQ/L (21-32); CHLORIDE LEVEL 106 MEQ/L (98-107); CPK CREATINE PHOSPHOKINASE 452 U/L (26-192); POTASSIUM SERUM 4.2 MEQ/L (3.5-5.1); SODIUM LEVEL 138 MEQ/L (136-145)
[2019-04-29 11:53] LABS: ACETAMINOPHEN LEVEL < 2.0 UG/ML (10.0-30.0); ALBUMIN 3.8 GM/DL (3.2-5.2); BILIRUBIN,DIRECT 0.1 MG/DL (0.0-0.2); BILIRUBIN,TOTAL 0.4 MG/DL (0.2-1.0); ETHYL ALCOHOL (ETHANOL) 0.093 % (0.000-0.010); THYROID STIMULATING HORMONE 0.894 uIU/ML (0.358-3.740); TOTAL PROTEIN 7.3 GM/DL (6.4-8.2)
--- NOTE | 2019-04-29 12:02 | REP ---
CT of the brain without IV contrast for trauma: There is no subdural or epidural hematoma. There is no intraparenchymal or subarachnoid hemorrhage. There is no edema, mass effect or midline shift. The ventricles are normal size. The cortical stripe is unremarkable. The visualized paranasal sinuses and mastoid air cells are clear. Impression: Essentially negative CT study of the brain. There is no interval change. Electronically Signed by Jose Colindres MD 04/29/2019 11:53 A
--- NOTE | 2019-04-29 12:12 | REP ---
Chest single PA view: Comparisons are 06/04/2017 and 01/21/2018. The lung macias are clear. The cardiac size is normal. The heather, mediastinum, and skeletal structures are unremarkable. Impression: Negative PA chest. Electronically Signed by Jose Colindres MD 04/29/2019 12:04 P
--- NOTE | 2019-04-29 12:30 | REP ---
CT of the cervical spine without IV contrast: Comparison is 09/04/2015. Vertebral body heights and alignment are normal. There is disc space narrowing at C5-6 compatible with degenerative disc disease. There is a curvilinear calcification posterior to the C6 vertebral body as an interval change, nonspecific. This could represent ligamentous calcification or could possibly represent a calcified extruded intervertebral disc. I would recommend MRI for follow up. The prevertebral soft tissues are normal. The facets are normally aligned. The skull base, C1 and C2 are unremarkable. There are no posterior element fractures. Impression: There is no fracture or listhesis. There is a new curvilinear calcification posterior to the C6 vertebral body. This is nonspecific and could represent ligamentous calcification or possibly a calcified extruded intervertebral disc. I would recommend MRI for follow up. There is progressive degenerative disc disease at C5-6. Electronically Signed by Jose Colindres MD 04/29/2019 12:21 P
[2019-04-29 12:56] VITALS: BP 122/81
--- NOTE | 2019-04-29 13:12 | ECGEPIP ---
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
--- NOTE | 2019-04-30 06:58 | ED PDOC ---
Post-Departure Follow-Up certified letter sent pertaining to radiology report Traci Tate MD Apr 30, 2019 06:58
== END 2019-04-29 12:58 | disposition home or self-care (01) ==
LOC: M ED 10:04
DX: F19.10 Other psychoactive substance abuse, uncomplicated (principal); F10.10 Alcohol abuse, uncomplicated; E10.65 Type 1 diabetes mellitus with hyperglycemia; R11.10 Vomiting, unspecified; F17.200 Nicotine dependence, unspecified, uncomplicated; M50.322 Other cervical disc degeneration at C5-C6 level; Z79.4 Long term (current) use of insulin
CPT/HCPCS: 70450; 71045; 72125; 80048; 80076; 82550; 82803; 84443; 84702; 85025; 93005; 96360; 96361; 99284; G0480

== ENCOUNTER 2019-08-22 06:38 | Emergency (ER) | payer OTHER ==
[~2019-08-22] VITALS: Ht 170.2 cm; Wt 68.2 kg
[2019-08-22] MEDS ORDERED: PROMETHAZINE INJ 25 MG/ML VIAL (J2550) IM ONE (07:30)
[2019-08-22 07:35] LABS: BASO # 0.1 10^3/uL (0.0-0.2); BASO % 0.7 % (0.0-1.0); EOS # 0.2 10^3/uL (0.0-0.5); EOS % 2.3 % (0.0-3.0); HEMATOCRIT 42.5 % (36.0-47.0); LYMPH # 2.5 10^3/uL (1.5-5.0); LYMPH % 27.1 % (24.0-44.0); MEAN CORPUSCULAR HEMOGLOBIN 32.3 pg (27.0-33.0); MEAN CORPUSCULAR HGB CONC 35.3 g/dl (32.0-36.5); MEAN CORPUSCULAR VOLUME 91.6 fl (80.0-96.0); MONO # 0.7 10^3/uL (0.0-0.8); MONO % 7.2 % (0.0-5.0); NEUTROPHILS # 5.8 10^3/uL (1.5-8.5); NEUTROPHILS % 62.3 % (36.0-66.0); PLATELET COUNT, AUTOMATED 292 10^3/uL (150-450); RED BLOOD COUNT 4.64 10^6/uL (4.00-5.40); WHITE BLOOD COUNT 9.4 10^3/uL (4.0-10.0)
[2019-08-22] MEDS ORDERED: NS 1,000 ML IV ONE ×2 (08:00→09:30)
[2019-08-22] MEDS ORDERED: LORazepam 2 MG/ML VIAL (J2060) IV ONE (08:00)
[2019-08-22 08:07] LABS: ACETAMINOPHEN LEVEL < 2.0 UG/ML (10.0-30.0); ALBUMIN 4.3 GM/DL (3.2-5.2); ALT/SGPT 37 U/L (12-78); BILIRUBIN,DIRECT 0.3 MG/DL (0.0-0.2); BILIRUBIN,TOTAL 1.3 MG/DL (0.2-1.0); BLOOD UREA NITROGEN 16 MG/DL (7-18); CALCIUM LEVEL 9.4 MG/DL (8.5-10.1); CARBON DIOXIDE LEVEL 25 MEQ/L (21-32); CHLORIDE LEVEL 102 MEQ/L (98-107); CREATININE FOR GFR 0.81 MG/DL (0.55-1.30); ETHYL ALCOHOL (ETHANOL) < 0.003 % (0.000-0.010); GLOMERULAR FILTRATION RATE > 60.0 (>60); GLUCOSE, FASTING 144 MG/DL (70-100); HCG, SERUM QUALITATIVE NEGATIVE (NEGATIVE); POTASSIUM SERUM 3.7 MEQ/L (3.5-5.1); SALICYLATE LEVEL < 1.7 MG/DL (5.0-30.0); SODIUM LEVEL 138 MEQ/L (136-145); TOTAL PROTEIN 7.9 GM/DL (6.4-8.2)
[2019-08-22] MEDS ORDERED: HALOPERIDOL 5 MG/ML VIAL (J1630) IV ONE (11:00)
[2019-08-22] MEDS ORDERED: PROC25SU24 PR (12:20)
[2019-08-22 12:42] VITALS: BP 119/58
== END 2019-08-22 12:47 | disposition home or self-care (01) ==
LOC: M ED 06:38
DX: E11.43 Type 2 diabetes mellitus with diabetic autonomic (poly)neuropathy (principal); T40.7X1A Poisoning by cannabis (derivatives), accidental (unintentional), initial encounter; R11.10 Vomiting, unspecified; G89.29 Other chronic pain; R10.9 Unspecified abdominal pain; J45.909 Unspecified asthma, uncomplicated; F32.9 Major depressive disorder, single episode, unspecified; F41.9 Anxiety disorder, unspecified; F19.10 Other psychoactive substance abuse, uncomplicated; M54.9 Dorsalgia, unspecified; F17.200 Nicotine dependence, unspecified, uncomplicated; F14.10 Cocaine abuse, uncomplicated; Z79.4 Long term (current) use of insulin
CPT/HCPCS: 36415; 36600; 80048; 80076; 82803; 84703; 85025; 96361; 96372; 96374; 96375; 99285; G0480; J1630; J2060

== ENCOUNTER 2019-08-26 16:26 | Inpatient (IN) | payer OTHER ==
[~2019-08-26] VITALS: Ht 170.2 cm; Wt 70.7 kg
[2019-08-26] MEDS: traZODone 100 MG TAB PO SCH (01:00)
[~2019-08-26 16:26] MED LIST changes: +PROC25SU24 PR
[2019-08-26] MEDS ORDERED: HYDR50TA70 PO (16:40)
[2019-08-26] MEDS ORDERED: NS 1,000 ML IV ONE (17:45)
[2019-08-26] MEDS ORDERED: PANTOPRAZOLE 40MG INJ (PROTONIX) (C9113) IV ONE (17:45)
[2019-08-26] MEDS ORDERED: METOCLOPRAMIDE INJ 10MG/2ML VIAL (J2765) IV ONE (17:45)
[2019-08-26 18:11] LABS: ALBUMIN 4.1 GM/DL (3.2-5.2); ALT/SGPT 38 U/L (12-78); BILIRUBIN,DIRECT 0.2 MG/DL (0.0-0.2); BILIRUBIN,TOTAL 0.7 MG/DL (0.2-1.0); BLOOD UREA NITROGEN 10 MG/DL (7-18); CALCIUM LEVEL 9.2 MG/DL (8.5-10.1); CARBON DIOXIDE LEVEL 26 MEQ/L (21-32); CHLORIDE LEVEL 102 MEQ/L (98-107); CREATININE FOR GFR 0.75 MG/DL (0.55-1.30); GLOMERULAR FILTRATION RATE > 60.0 (>60); GLUCOSE, FASTING 288 MG/DL (70-100); HCG, SERUM QUANTITATIVE < 1.0 MIU/ML; LIPASE 75 U/L (73-393); POTASSIUM SERUM 4.4 MEQ/L (3.5-5.1); SODIUM LEVEL 138 MEQ/L (136-145); TOTAL PROTEIN 7.8 GM/DL (6.4-8.2)
[2019-08-26] MEDS ORDERED: CAPSAICIN 0.025% CR 60 GM TOP ONE (18:15)
[2019-08-26 19:33] LABS: VENOUS BASE EXCESS -2.3 (-2.0-2.0); VENOUS HCO3 22.3 MEQ/L (23.0-27.0); VENOUS O2 SATURATION 79.6 % (60.0-80.0); VENOUS PARTIAL PRESSURE O2 46.3 mmHg (30.0-50.0); VENOUS PH 7.387 UNITS (7.330-7.430); VENOUS STANDARD HCO3 22.2 MEQ/L; VENOUS TOTAL CO2 23.5 MEQ/L (24.0-28.0)
[2019-08-26 19:37] LABS: BASO % 0.2 % (0.0-1.0); HEMATOCRIT 39.9 % (36.0-47.0); HEMOGLOBIN 13.8 g/dl (12.0-15.5); LYMPH # 1.3 10^3/uL (1.5-5.0); LYMPH % 14.4 % (24.0-44.0); MEAN CORPUSCULAR HEMOGLOBIN 31.7 pg (27.0-33.0); MEAN CORPUSCULAR HGB CONC 34.6 g/dl (32.0-36.5); MEAN CORPUSCULAR VOLUME 91.5 fl (80.0-96.0); MONO # 0.3 10^3/uL (0.0-0.8); MONO % 3.6 % (0.0-5.0); NEUTROPHILS # 7.2 10^3/uL (1.5-8.5); NEUTROPHILS % 81.5 % (36.0-66.0); PLATELET COUNT, AUTOMATED 270 10^3/uL (150-450); RED BLOOD COUNT 4.36 10^6/uL (4.00-5.40); WHITE BLOOD COUNT 8.9 10^3/uL (4.0-10.0)
[2019-08-26] MEDS ORDERED: ONDANSETRON 4MG/2ML VIAL (J2405) IV ONE (20:00)
[2019-08-26 20:31] LABS: APPEARANCE, URINE HAZY (CLEAR); BACTERIA, URINE AUTO NEGATIVE (NEGATIVE); BILIRUBIN, URINE AUTO NEGATIVE (NEGATIVE); BLOOD, URINE BLOOD 1+ (NEGATIVE); COLOR, URINE YELLOW (YELLOW); GLUCOSE, URINE (UA) AUTO 3+ mg/dL (NEGATIVE); KETONE, URINE AUTO 2+ mg/dL (NEGATIVE); LEUKOCYTE ESTERASE, URINE AUTO NEGATIVE (NEGATIVE); MUCUS, URINE SMALL (NEGATIVE); NITRITE, URINE AUTO NEGATIVE (NEGATIVE); PROTEIN, URINE AUTO 1+ mg/dL (NEGATIVE); RBC, URINE AUTO 2 /HPF (0-3); SPECIFIC GRAVITY URINE AUTO 1.036 (1.002-1.035); SQUAMOUS EPITHELIAL CELL UR AU 2 /HPF (0-6); UROBILINOGEN, URINE AUTO 0.2 mg/dL (0.0-2.0); WBC, URINE AUTO 1 /HPF (0-3)
[2019-08-26] MEDS ORDERED: GABA600T4 PO (21:19)
[2019-08-26] MEDS ORDERED: PROC25SU24 PR (21:19)
[2019-08-26] MEDS ORDERED: LEXA1TAB2 PO (21:19)
[2019-08-26] MEDS ORDERED: TRAZ-257 PO (21:19)
[2019-08-26] MEDS ORDERED: NS 1,000 ML IV SCH (21:45)
[2019-08-26] MEDS ORDERED: ONDANSETRON 4MG/2ML VIAL (J2405) IV PRN (21:45)
--- NOTE | 2019-08-26 21:50 | HPEPDOC ---
[facility] Medical History & Physical Date of Admission Aug 26, 2019 Date of Service: Aug 26, 2019 Attending Physician: JORGE MACHADO MD History and Physical TIME OF SERVICE: 9:50 PM CHIEF COMPLAINT: Nausea, vomiting, diarrhea HISTORY OF PRESENT ILLNESS: This is a 34 old female resented to the ER on August 21 with complaints of vomiting which is thought to be due to cyclic vomiting related to THC use; she is given a prescription for Phenergan but hasn't filled it. Today she complaining of of nonbloody vomiting every hour, associated with within 20 episodes of nonbloody diarrhea, associated with mid nonradiating, sharp, 8 / 10 in severity, mid-abdominal pain, poor appetite and chills. She denies having fevers. She has a history of polysubstance abuse, last smoked THC about one week ago, and last used cocaine and alcohol and . REVIEW OF SYSTEMS: 12 point review of systems negative except as listed in HPI PAST MEDICAL/ SURGICAL HISTORY: IDDM1 Noncompliance. Anxiety/depression. Asthma Chronic back pain. Laparoscopy SH Smokes Drinks alcohol, but did not quantify the amount. Smokes cocaine but didn't quantify the amount. Smokes marijuana regularly. Has 2 children FAMILY HISTORY: COPD Diabetes ALLERGIES: Please see below. HOME MEDICATIONS: Please see below. Vital Signs Date Time Temp Pulse Resp B/P (MAP) Pulse Ox O2 Delivery O2 Flow Rate FiO2 08/26/19 16:26 97.4 65 18 137/78 (97) 100 Room Air PHYSICAL EXAMINATION: GEN: well-nourished / well developed/ appears anxious INTEGUMENT: Slightly flushed HEENT: NCAT / lips acyanotic /mucus membranes . Right CVS: RRR/NMRG LUNGS: clear to auscultation bilaterally on room air ABDOMEN: Contour (flat) / soft & not tender with palpation MSK/EXTREMITIES: range of motion intact in all 4 extremities NEURO: CN 2-12 are grossly intact / speech is not dysarthric PSYCH: alert and oriented to person place and time/ able to understand and follow all commands LABORATORY DATA: Anion Gap 10, Glomerular Filtration Rate > 60.0, Calcium Level 9.2, Total Bilirubin 0.7, Direct Bilirubin 0.2, Aspartate Amino Transf (AST/SGOT) 20, Alanine Aminotransferase (ALT/SGPT) 38, Alkaline Phosphatase 74, Total Protein 7.8, Albumin 4.1, Albumin/Globulin Ratio 1.11, Lipase 75, Human Chorionic Gonadotropin, Quant < 1.0 Urine Color YELLOW, Urine Appearance HAZY, Urine pH 6.0, Urine Specific [place] 1.036, Urine Protein 1+H, Urine Glucose (Auto)(UA) 3+H, Urine Ketones (Auto) 2+H, Urine Blood 1+H, Urine Nitrite NEGATIVE, Urine Bilirubin NEGATIVE, Urine Urobilinogen 0.2, Urine Leukocyte Esterase (Auto) NEGATIVE, Urine WBC (Auto) 1, Urine RBC (Auto) 2, Urine Hyaline Casts (Auto) 0, Urine Bacteria (Auto) NEGATIVE, Urine Squamous Epithelial Cells 2, Urine Mucus (Auto) SMALL, Urine Sperm (Auto) MICROBIOLOGY: 08/26/19 Gastrointestinal Tract Panel (PCR) - Final, Complete ASSESSMENT: Ms. Pa is a 34-year-old with a history of asthma, anxiety, depression, type 1 diabetes, and polysubstance abuse is admitted for nausea, vomiting, diarrhea, likely due to cocaine withdrawal. PLAN: 1. Nausea, vomiting, diarrhea, likely due to cocaine withdrawal. Stool studies ordered in the ER were negative. She's not in DKA - Admit to medical floor/Zofran metoclopramide/IV fluids/follow-up drug screen / clear liquid diet 2. Polysubstance abuse - Ativan per per CIWA protocol, fall precautions, seizure precautions, thiamine, multivitamin, folic acid 3. IDDM1 - f/u accuchecks 4 hours & A1C / hypoglycemia protocol / she takes Humulin NPH 30 units twice a day along with regular insulin before meals, we will change her regimen to NPH 15 units twice a day along with sliding scale insulin to her oral intake has improved 3. Anxiety/depression - escitalopram, trazodone DVT PROPHYLAXIS: SCDs DISPOSITION: Home after more than 2 midnight's stay Home Medications Scheduled Escitalopram Oxalate (Lexapro) 20 Mg Tablet, 20 MG PO DAILY Gabapentin (Gabapentin) 600 Mg Tablet, 1,800 MG PO TID Insulin Human NPH (Humulin N) 1 Units/0.01 Ml Susp, 30 UNITS SC BID Insulin Human Regular (Humulin R) 1 Units/0.01 Ml Soln, 1 UNIT SC AC SLICING SCALE Trazodone HCl (Trazodone HCl) 100 Mg Tablet, 100 MG PO QHS Scheduled PRN Hydroxyzine HCl (Hydroxyzine HCl) 50 Mg Tablet, 50 MG PO Q4H PRN for ITCHING Prochlorperazine (Prochlorperazine) 25 Mg Supp.rect, 25 MG IN Q8H PRN for NAUSEA NEW RX, HAS NOT PICKED UP FROM PHARMACY Allergies Coded Allergies: No Known Allergies (Verified , 12/16/06) A-FIB/CHADSVASC A-FIB History Current/History of A-Fib/PAF?: No Current PO Anticoag Therapy: No JORGE MACHADO MD Aug 26, 2019 21:50
[2019-08-26] MEDS ORDERED: GLUCOSE 4 GM CHEW TABLET PO PRN (22:30)
[2019-08-26] MEDS ORDERED: GLUCAGON FOR INJ 1 MG VIAL (J1610) SC PRN (22:30)
[2019-08-26] MEDS ORDERED: PROCHLORPERAZINE 25 MG SUPP PR PRN (22:30)
[2019-08-26] MEDS ORDERED: LORazepam 2 MG/ML VIAL (J2060) IV PRN (22:30)
[2019-08-26] MEDS ORDERED: DEXTROSE 50% 50 ML SYRINGE IV PRN (22:30)
[2019-08-26 23:00] VITALS: BP 158/87
[2019-08-26 23:09] VITALS: BP 140/84
[2019-08-26] MEDS: METOCLOPRAMIDE INJ 10MG/2ML VIAL (J2765) IV PRN (23:40)
[2019-08-26 23:50] VITALS: BP 158/87
[2019-08-27] MEDS ORDERED: diphenhydrAMINE INJ 50MG/ML VIAL (J1200) IM ONE
[2019-08-27] MEDS: LORazepam 2 MG/ML VIAL (J2060) IV PRN ×2 (00:15→12:24)
[2019-08-27] MEDS: HumaLOG INSULIN (NovoLOG) PER UNIT SC SCH ×4 (00:27→12:17)
[2019-08-27] MEDS ORDERED: diphenhydrAMINE INJ 50MG/ML VIAL (J1200) IV ONE (00:45)
[2019-08-27 02:00] VITALS: BP 136/86
[2019-08-27] MEDS: ACETAMINOPHEN TAB 650MG DOSE (2X325MG) PO PRN ×3 (05:02→17:35)
[2019-08-27 05:52] LABS: HEMATOCRIT 37.4 % (36.0-47.0); HEMOGLOBIN 12.8 g/dl (12.0-15.5); MEAN CORPUSCULAR HEMOGLOBIN 31.3 pg (27.0-33.0); MEAN CORPUSCULAR HGB CONC 34.2 g/dl (32.0-36.5); MEAN CORPUSCULAR VOLUME 91.4 fl (80.0-96.0); PLATELET COUNT, AUTOMATED 255 10^3/uL (150-450); RED BLOOD COUNT 4.09 10^6/uL (4.00-5.40); WHITE BLOOD COUNT 10.2 10^3/uL (4.0-10.0)
[2019-08-27 06:00] VITALS: BP 108/56
[2019-08-27 06:26] LABS: ALBUMIN 3.3 GM/DL (3.2-5.2); ALT/SGPT 28 U/L (12-78); BLOOD UREA NITROGEN 10 MG/DL (7-18); CALCIUM LEVEL 8.5 MG/DL (8.5-10.1); CARBON DIOXIDE LEVEL 26 MEQ/L (21-32); CHLORIDE LEVEL 103 MEQ/L (98-107); CREATININE FOR GFR 0.62 MG/DL (0.55-1.30); GLOMERULAR FILTRATION RATE > 60.0 (>60); GLUCOSE, FASTING 151 MG/DL (70-100); SODIUM LEVEL 136 MEQ/L (136-145); TOTAL PROTEIN 6.9 GM/DL (6.4-8.2)
[2019-08-27] MEDS ORDERED: HumuLIN N INSULIN (NovoLIN N) PER UNIT SC SCH (07:30)
[2019-08-27 08:00] VITALS: BP 130/75
[2019-08-27] MEDS ORDERED: THIAMINE HCL 200 MG/2 ML VIAL (J3411) IM SCH (09:00)
[2019-08-27] MEDS ORDERED: MULTIVITAMINS/MINERALS THERAP 1 TAB PO SCH (09:00)
[2019-08-27] MEDS: KCL 10MEQ/100ML SWI (KRUN) 10 MEQ in IV 1 EA IV SCH ×4 (09:42→14:29)
[2019-08-27] MEDS: DOCUSATE SODIUM 100 MG CAP PO SCH ×2 (09:42→20:39)
[2019-08-27] MEDS: GABAPENTIN 300 MG CAP PO SCH ×3 (09:43→23:07)
[2019-08-27] MEDS: ESCITALOPRAM OXALATE 10 MG TAB (LEXAPRO) PO SCH (09:43)
[2019-08-27] MEDS: FOLIC ACID 1 MG TAB PO SCH (09:43)
[2019-08-27] MEDS: THIAMINE 100 MG TAB PO SCH (09:43)
--- NOTE | 2019-08-27 10:33 | IPNPDOC ---
Subjective Date Seen The patient was seen on 08/27/19. Subjective Chief Complaint/HPI Pt this morning reports that she has had abd pain for one week, worsening nausea and vomiting for a few days. H/o THC, cocaine and EtOH abuse. She has developed low grade temps overnight, this morning her left abdomen is tender to touch and red. She states that she didn't notice this before this morning. Constitutional: Reports: Fever; Denies: Chills ENT: Reports: Head Aches Pulmonary: Denies: Dyspnea, Cough Cardiovascular: Denies: Chest Pain, Palpitations Gastrointestinal: Reports: Nausea (improved. ), Vomiting (last episode last evening) Neurological: Denies: Weakness Psych: Reports: Depression Objective Physical Examination General Exam: Positive: Alert, No Acute Distress ENT Exam: Positive: Mucous membr. moist/pink Chest Exam: Positive: Clear to auscultation, Normal air movement Heart Exam: Positive: Rate Normal, Normal S1, Normal S2 Abdomen Exam: Positive: Normal bowel sounds, Soft, Tenderness Skin Exam: Positive: Other skin issue (left abdomen with erythema, warmth, tenderness, reported burning sensatio when touch, area will be demarcated, does not extend onto her back or flank, barely crosses the umbilicus) Neuro Exam: Positive: Normal Speech Psych Exam: Positive: Mood NL Assessment /Plan Problems (1) Nausea vomiting and diarrhea Status: Acute Response to Treatment: Stable, Improving Problem Specific Plan: Monitor Clinically Problem Text: symptoms has improved significantly since admission. (2) Hypokalemia Status: Acute Response to Treatment: Stable Problem Specific Plan: Monitor Clinically, Repeat Labs Problem Text: K+ 3.0 this morning, on IV replacement, IVF adjusted. (3) Cellulitis of left abdominal wall Status: Acute Problem Specific Plan: Monitor Clinically Problem Text: Appears new this morning, wuth T Max 100.4 this morning, but rising temps overnight. WBC also climbed from 8.9 to 10.2, started on IV Ceftaroline, CRP ordered, blood culture x2 ordered. (4) IDDM (insulin dependent diabetes mellitus) Status: Chronic Response to Treatment: Stable Problem Specific Plan: Monitor Clinically Plan/VTE VTE Prophylaxis Ordered?: Yes VS, I&O, 24H, Fishbone Vital Signs/I&O Vital Signs Date Time Temp Pulse Resp B/P (MAP) Pulse Ox O2 Delivery O2 Flow Rate FiO2 08/27/19 08:00 71 130/75 08/27/19 06:00 100.4 18 97 Room Air I&O- Last 24 Hours up to 6 AM 08/27/19 06:00 Intake Total 1000 ml Output Total 300 ml Balance 700 ml Laboratory Data 24H LABS Laboratory Tests 2 08/26/19 17:25: Anion Gap 10, Glomerular Filtration Rate > 60.0, Calcium Level 9.2, Total Bilirubin 0.7, Direct Bilirubin 0.2, Aspartate Amino Transf (AST/SGOT) 20, Alanine Aminotransferase (ALT/SGPT) 38, Alkaline Phosphatase 74, Total Protein 7.8, Albumin 4.1, Albumin/Globulin Ratio 1.11, Lipase 75, Human Chorionic Gonadotropin, Quant < 1.0 08/26/19 18:13: Bedside Glucose (Misc Panel) 264H 08/26/19 19:26: Immature Granulocyte % (Auto) 0.3, Neutrophils (%) (Auto) 81.5H, Lymphocytes (%) (Auto) 14.4L, Monocytes (%) (Auto) 3.6, Eosinophils (%) (Auto) 0.0, Basophils (%) (Auto) 0.2, Neutrophils # (Auto) 7.2, Lymphocytes # (Auto) 1.3L, Monocytes # (Auto) 0.3, Eosinophils # (Auto) 0.0, Basophils # (Auto) 0.0, Nucleated Red Blood Cells % (auto) 0.0, Blood Gas Bicarbonate Standard 22.2, Venous Blood pH 7.387, Venous Blood Partial Pressure CO2 38.0, Venous Blood Partial Pressure O2 46.3, Venous Blood Total Carbon Dioxide 23.5L, Venous Blood HCO3 22.3L, Venous Blood Oxygen Saturation 79.6, Venous Blood Base Excess -2.3L 08/26/19 20:18: Urine Color YELLOW, Urine Appearance HAZY, Urine pH 6.0, Urine Specific [place] 1.036, Urine Protein 1+H, Urine Glucose (Auto)(UA) 3+H, Urine Ketones (Auto) 2+H, Urine Blood 1+H, Urine Nitrite NEGATIVE, Urine Bilirubin NEGATIVE, Urine Urobilinogen 0.2, Urine Leukocyte Esterase (Auto) NEGATIVE, Urine WBC (Auto) 1, Urine RBC (Auto) 2, Urine Hyaline Casts (Auto) 0, Urine Bacteria (Auto) NEGATIVE, Urine Squamous Epithelial Cells 2, Urine Mucus (Auto) SMALL, Urine Sperm (Auto) 08/26/19 22:51: Bedside Glucose (Misc Panel) 232H 08/26/19 22:58: Magnesium Level 1.7L 08/27/19 03:49: Bedside Glucose (Misc Panel) 137H 08/27/19 05:11: Nucleated Red Blood Cells % (auto) 0.0, Anion Gap 7L, Glomerular Filtration Rate > 60.0, Calcium Level 8.5, Total Bilirubin 1.0, Aspartate Amino Transf (AST/SGOT) 16, Alanine Aminotransferase (ALT/SGPT) 28, Alkaline Phosphatase 56, Total Protein 6.9, Albumin 3.3, Albumin/Globulin Ratio 0.92L 08/27/19 08:00: Bedside Glucose (Misc Panel) 191H CBC/BMP Laboratory Tests 08/26/19 17:25 08/26/19 19:26 08/27/19 05:11 Microbiology Microbiology 08/26/19 Gastrointestinal Tract Panel (PCR) - Final, Complete ELTON CANSECO PA-C Aug 27, 2019 10:33
[2019-08-27] MEDS: CEFTAROLINE FOSAMIL 600 MG in D5W MINI-BAG PLUS 50 ML IV SCH ×2 (11:19→22:36)
[2019-08-27] MEDS: KCL 20MEQ IN 0.45NS 1000ML 1,000 ML IV SCH ×3 (11:24→21:57)
[2019-08-27] MEDS: hydrOXYzine 50 MG TAB PO PRN ×2 (11:24→17:35)
[2019-08-27 11:30] LABS: C REACTIVE PROTEIN QUANTITATIV 0.75 MG/DL (0.00-0.30)
[2019-08-27] MEDS ORDERED: LORazepam 2 MG/ML VIAL (J2060) As Ordered ONE (12:20)
[2019-08-27 14:00] VITALS: BP 124/68
[2019-08-27] MEDS ORDERED: HumuLIN R (REGULAR) INSULIN (NovoLIN R) **100U/ML** PER UNIT SC SCH (17:30)
[2019-08-27] MEDS: HumuLIN N INSULIN (NovoLIN N) PER UNIT SC SCH (17:36)
[2019-08-27] MEDS: HumuLIN R (REGULAR) INSULIN (NovoLIN R) **100U/ML** PER UNIT SC SCH (17:38)
[2019-08-27] MEDS ORDERED: LOPERAMIDE 2 MG CAPLET PO PRN (19:15)
[2019-08-27] MEDS: traZODone 100 MG TAB PO SCH (20:45)
[2019-08-27 22:00] VITALS: BP 113/60
[2019-08-27 22:38] VITALS: BP 130/73
[2019-08-28] MEDS: ACETAMINOPHEN TAB 650MG DOSE (2X325MG) PO PRN ×4 (01:07→21:37)
[2019-08-28] MEDS: hydrOXYzine 50 MG TAB PO PRN ×3 (01:44→21:37)
[2019-08-28 05:55] LABS: HEMATOCRIT 37.1 % (36.0-47.0); HEMOGLOBIN 12.6 g/dl (12.0-15.5); MEAN CORPUSCULAR HEMOGLOBIN 31.6 pg (27.0-33.0); PLATELET COUNT, AUTOMATED 223 10^3/uL (150-450); RED BLOOD COUNT 3.99 10^6/uL (4.00-5.40); WHITE BLOOD COUNT 6.8 10^3/uL (4.0-10.0)
[2019-08-28 06:00] VITALS: BP 125/76
[2019-08-28 06:10] VITALS: BP 129/70
[2019-08-28 06:15] LABS: BLOOD UREA NITROGEN 7 MG/DL (7-18); CALCIUM LEVEL 8.2 MG/DL (8.5-10.1); CARBON DIOXIDE LEVEL 28 MEQ/L (21-32); CHLORIDE LEVEL 104 MEQ/L (98-107); CREATININE FOR GFR 0.63 MG/DL (0.55-1.30); GLOMERULAR FILTRATION RATE > 60.0 (>60); GLUCOSE, FASTING 215 MG/DL (70-100); MAGNESIUM LEVEL 1.9 MG/DL (1.8-2.4); POTASSIUM SERUM 3.9 MEQ/L (3.5-5.1); SODIUM LEVEL 136 MEQ/L (136-145)
[2019-08-28] MEDS: GABAPENTIN 300 MG CAP PO SCH ×3 (08:08→21:37)
[2019-08-28] MEDS: ESCITALOPRAM OXALATE 10 MG TAB (LEXAPRO) PO SCH (08:08)
[2019-08-28] MEDS: FOLIC ACID 1 MG TAB PO SCH (08:08)
[2019-08-28] MEDS: THIAMINE 100 MG TAB PO SCH (08:08)
[2019-08-28] MEDS: HumuLIN R (REGULAR) INSULIN (NovoLIN R) **100U/ML** PER UNIT SC SCH ×3 (08:09→17:14)
[2019-08-28] MEDS: DOCUSATE SODIUM 100 MG CAP PO SCH ×2 (08:10→21:00)
[2019-08-28] MEDS: HumuLIN N INSULIN (NovoLIN N) PER UNIT SC SCH ×2 (08:10→17:23)
[2019-08-28] MEDS: METOCLOPRAMIDE INJ 10MG/2ML VIAL (J2765) IV PRN (08:20)
--- NOTE | 2019-08-28 09:42 | IPNPDOC ---
Subjective Date Seen The patient was seen on 08/28/19. Subjective Chief Complaint/HPI Parisa states that she cont to have abd pain, the redness that she had yesterday has resolved. She states that she is no longer vomiting or having diarrhea, but she still doesn't have a great appetite. General: Reports: Fatigue Constitutional: Denies: Chills, Fever ENT: Denies: Head Aches Pulmonary: Denies: Dyspnea, Cough Cardiovascular: Denies: Chest Pain, Palpitations Gastrointestinal: Reports: Abdominal Pain; Denies: Nausea, Vomiting, Diarrhea Neurological: Denies: Weakness Psych: Reports: Mood Normal Objective Physical Examination General Exam: Positive: Alert, No Acute Distress ENT Exam: Positive: Mucous membr. moist/pink Chest Exam: Positive: Clear to auscultation, Normal air movement Heart Exam: Positive: Rate Normal, Normal S1, Normal S2 Abdomen Exam: Positive: Normal bowel sounds, Soft, Tenderness (diffusely mildly tender with gentle palpation) Skin Exam: Positive: Other skin issue (erythema noted on her left abd yesterday has fully resolved this morning. ) Neuro Exam: Positive: Normal Speech Psych Exam: Positive: Mood NL Assessment /Plan Problems (1) Nausea vomiting and diarrhea Status: Resolved Response to Treatment: Stable, Improving Problem Specific Plan: Monitor Clinically Problem Text: symptoms has improved significantly since admission. (2) Hypokalemia Status: Resolved Response to Treatment: Stable Problem Specific Plan: Monitor Clinically, Repeat Labs Problem Text: K+ 3.0 this morning, on IV replacement, IVF adjusted. (3) Cellulitis of left abdominal wall Status: Acute Problem Specific Plan: Monitor Clinically Problem Text: 08/27 T max 100.4, D2 ceftaroline, WBC came down, the erythema that was presetn on the left abdomen yesterday hasfully resolved. Pt states that the pain she had only on her left abd yesterday is now all over in her abd. Blood cultures pending. 08/26 Appears new this morning, wuth T Max 100.4 this morning, but rising temps overnight. WBC also climbed from 8.9 to 10.2, started on IV Ceftaroline, CRP ordered, blood culture x2 ordered. (4) IDDM (insulin dependent diabetes mellitus) Status: Chronic Response to Treatment: Stable Problem Specific Plan: Monitor Clinically Plan/VTE VTE Prophylaxis Ordered?: Yes VS, I&O, 24H, Fishbone Vital Signs/I&O Vital Signs Date Time Temp Pulse Resp B/P (MAP) Pulse Ox O2 Delivery O2 Flow Rate FiO2 08/28/19 06:10 60 129/70 08/28/19 06:00 98.2 18 97 Room Air I&O- Last 24 Hours up to 6 AM 08/28/19 06:00 Intake Total 6836.5 ml Output Total 1550 ml Balance 5286.5 ml Laboratory Data 24H LABS Laboratory Tests 2 08/27/19 11:33: Bedside Glucose (Misc Panel) 344H 08/27/19 15:37: Bedside Glucose (Misc Panel) 202H 08/27/19 20:25: Bedside Glucose (Misc Panel) 329H 08/28/19 05:08: Nucleated Red Blood Cells % (auto) 0.0, Anion Gap 4L, Glomerular Filtration Rate > 60.0, Calcium Level 8.2L, Magnesium Level 1.9 CBC/BMP Laboratory Tests 08/28/19 05:08 Microbiology Microbiology 08/27/19 Blood Culture, Received Pending 08/27/19 Blood Culture, Received Pending 08/26/19 Gastrointestinal Tract Panel (PCR) - Final, Complete ELTON CANSECO PA-C Aug 28, 2019 09:42
[2019-08-28] MEDS: CEFTAROLINE FOSAMIL 600 MG in D5W MINI-BAG PLUS 50 ML IV SCH ×2 (10:49→23:19)
[2019-08-28 14:00] VITALS: BP_SYST 129; BP_DIAS 70; BP_DIAS 81
[2019-08-28] MEDS: NICOTINE 21MG/24HR 1 EA TRANSDERMAL TD SCH (15:25)
--- NOTE | 2019-08-28 17:26 | REP ---
CT abdomen and pelvis without IV or oral contrast: History: Abdomen pain. Redness of the abdominal wall. No comparison CT study. CT findings: Digital preliminary bathing suit maker view is unremarkable. Bowel gas pattern is normal. The lung bases are clear on axial CT images. The liver and the spleen are normal in size and homogeneous in texture. The gallbladder is small and contracted. No abnormality is noted in the pancreas. No adrenal lesion is seen. Normal appendix is seen retrocecal in position. No retroperitoneal mass or adenopathy is observed. Small and large bowel loops appear unremarkable on this noncontrast study. The urinary bladder is intact. No uterine or ovarian abnormality is seen. There is no evidence of mass, abnormal fluid collection, or focal dermal thickening in the abdominal wall. No bony destructive lesion. Impression: Negative CT study abdomen and pelvis without IV or oral contrast. Electronically Signed by Rodney Villarreal MD 08/28/2019 05:45 P
[2019-08-28] MEDS: traZODone 100 MG TAB PO SCH (21:37)
[2019-08-28 22:00] VITALS: BP 139/83
[2019-08-29 05:47] LABS: HEMATOCRIT 37.8 % (36.0-47.0); MEAN CORPUSCULAR HEMOGLOBIN 31.4 pg (27.0-33.0); MEAN CORPUSCULAR HGB CONC 34.4 g/dl (32.0-36.5); MEAN CORPUSCULAR VOLUME 91.3 fl (80.0-96.0); PLATELET COUNT, AUTOMATED 243 10^3/uL (150-450); RED BLOOD COUNT 4.14 10^6/uL (4.00-5.40); WHITE BLOOD COUNT 7.9 10^3/uL (4.0-10.0)
[2019-08-29 06:00] VITALS: BP 122/79
[2019-08-29 06:10] LABS: BEDSIDE GLUCOSE CONFIRMATION 35 MG/DL (LESS THAN 200); BLOOD UREA NITROGEN 8 MG/DL (7-18); CALCIUM LEVEL 8.3 MG/DL (8.5-10.1); CARBON DIOXIDE LEVEL 28 MEQ/L (21-32); CHLORIDE LEVEL 108 MEQ/L (98-107); CREATININE FOR GFR 0.57 MG/DL (0.55-1.30); GLOMERULAR FILTRATION RATE > 60.0 (>60); GLUCOSE, FASTING 35 MG/DL (70-100); POTASSIUM SERUM 3.3 MEQ/L (3.5-5.1); SODIUM LEVEL 141 MEQ/L (136-145)
[2019-08-29] MEDS ORDERED: POTASSIUM CHLORIDE INJ 20 MEQ in D10W/0.45% SODIUM CHLORIDE 1,000 ML IV SCH (06:30)
[2019-08-29] MEDS: HumuLIN R (REGULAR) INSULIN (NovoLIN R) **100U/ML** PER UNIT SC SCH ×2 (07:12→11:54)
[2019-08-29] MEDS: DOCUSATE SODIUM 100 MG CAP PO SCH (09:00)
[2019-08-29] MEDS ORDERED: E-Z-GAS II EFFERVESCENT PACKET (SODIUM BICARB./CITRIC ACID/SIMETHICONE) As Ordered ONE (09:31)
[2019-08-29] MEDS ORDERED: E-Z-PAQUE 96% w/w SUSP 176GM BTL As Ordered ONE (09:31)
[2019-08-29] MEDS ORDERED: E-Z-HD 98% w/w 340GM SUSP BTL As Ordered ONE (09:32)
[2019-08-29] MEDS: THIAMINE 100 MG TAB PO SCH (10:35)
[2019-08-29] MEDS: GABAPENTIN 300 MG CAP PO SCH (10:35)
[2019-08-29] MEDS: ACETAMINOPHEN TAB 650MG DOSE (2X325MG) PO PRN (10:35)
[2019-08-29] MEDS: FOLIC ACID 1 MG TAB PO SCH (10:35)
[2019-08-29] MEDS: ESCITALOPRAM OXALATE 10 MG TAB (LEXAPRO) PO SCH (10:35)
[2019-08-29] MEDS: hydrOXYzine 50 MG TAB PO PRN (10:35)
[2019-08-29] MEDS: NICOTINE 21MG/24HR 1 EA TRANSDERMAL TD SCH (10:36)
[2019-08-29] MEDS: CEFTAROLINE FOSAMIL 600 MG in D5W MINI-BAG PLUS 50 ML IV SCH (10:38)
[2019-08-29] MEDS: HumuLIN N INSULIN (NovoLIN N) PER UNIT SC SCH (10:41)
--- NOTE | 2019-08-29 11:46 | IPNPDOC ---
Subjective Date Seen The patient was seen on 08/29/19. Subjective Chief Complaint/HPI n/v/d Events since last encounter Continues to c/o dysphagia, abdominal bloating and nausea. Had hypoglycemia episode this am due to taking NPH and NPO status. GLucose improved with IVF D10. Has resumed taking po after barium swallow. Regular insulin schedule resumed. Constitutional: Denies: Chills, Fever, Night Sweats Gastrointestinal: Reports: Nausea, Abdominal Pain, Constipation; Denies: Vomiting Objective Physical Examination General Exam: Positive: Alert, No Acute Distress ENT Exam: Positive: Mucous membr. moist/pink Chest Exam: Positive: Clear to auscultation, Normal air movement Heart Exam: Positive: Rate Normal, Normal S1, Normal S2 Abdomen Exam: Positive: Normal bowel sounds, Soft, Tenderness (mildly tender to upper abdomen on palpation) Skin Exam: Positive: Other skin issue (erythema noted on her left abd yesterday has fully resolved this morning. ) Neuro Exam: Positive: Normal Speech Psych Exam: Positive: Mood NL Assessment /Plan Problems (1) Nausea vomiting and diarrhea Status: Resolved Response to Treatment: Stable, Improving Problem Specific Plan: Monitor Clinically Problem Text: symptoms has improved significantly since admission. (2) Hypokalemia Status: Resolved Response to Treatment: Stable Problem Specific Plan: Monitor Clinically, Repeat Labs Problem Text: 08/29/19: received potassium in IVF this am due to level of 3.3. will repeat BMP this afternoon K+ 3.0 this morning, on IV replacement, IVF adjusted. (3) Cellulitis of left abdominal wall Status: Acute Problem Specific Plan: Monitor Clinically Problem Text: 08/29/2019: Afebrile x 24 hrs. Continue Ceftaroline x 1 more day then transition to po abx. Bl. cx negative 08/27 T max 100.4, D2 ceftaroline, WBC came down, the erythema that was presetn on the left abdomen yesterday hasfully resolved. Pt states that the pain she had only on her left abd yesterday is now all over in her abd. Blood cultures pending. 08/26 Appears new this morning, wuth T Max 100.4 this morning, but rising temps overnight. WBC also climbed from 8.9 to 10.2, started on IV Ceftaroline, CRP ordered, blood culture x2 ordered. (4) IDDM (insulin dependent diabetes mellitus) Status: Chronic Response to Treatment: Stable Problem Specific Plan: Monitor Clinically Problem Text: hypoglycemic this am. resume insulin dosing today. monitor. Plan/VTE VTE Prophylaxis Ordered?: Yes VS, I&O, 24H, Fishbone Vital Signs/I&O Vital Signs Date Time Temp Pulse Resp B/P (MAP) Pulse Ox O2 Delivery O2 Flow Rate FiO2 08/29/19 06:00 96.8 68 17 122/79 (93) 95 Room Air I&O- Last 24 Hours up to 6 AM 08/29/19 06:00 Intake Total 2421 ml Output Total 750 ml Balance 1671 ml Laboratory Data 24H LABS Laboratory Tests 2 08/28/19 16:11: Bedside Glucose (Misc Panel) 121H 08/28/19 17:30: Bedside Glucose (Misc Panel) 118H 08/28/19 20:43: Bedside Glucose (Misc Panel) 229H 08/29/19 05:05: Nucleated Red Blood Cells % (auto) 0.0, Bedside Glucose Confirm (Misc) 35*L, Anion Gap 5L, Glomerular Filtration Rate > 60.0, Calcium Level 8.3L, Magnesium Level 2.0 08/29/19 05:18: Bedside Glucose (Misc Panel) 42L 08/29/19 06:35: Bedside Glucose (Misc Panel) 72 08/29/19 07:04: Bedside Glucose (Misc Panel) 98 08/29/19 11:15: Bedside Glucose (Misc Panel) 258H CBC/BMP Laboratory Tests 08/29/19 05:05 Microbiology Microbiology 08/27/19 Blood Culture - Preliminary, Resulted No Growth after 48 hours. All Specime... 08/27/19 Blood Culture - Preliminary, Resulted No Growth after 48 hours. All Specime... 08/26/19 Gastrointestinal Tract Panel (PCR) - Final, Complete Suzie Hamilton PHARMACIST Aug 29, 2019 11:46
[2019-08-29 12:49] LABS: BLOOD UREA NITROGEN 9 MG/DL (7-18); CALCIUM LEVEL 8.6 MG/DL (8.5-10.1); CARBON DIOXIDE LEVEL 30 MEQ/L (21-32); CHLORIDE LEVEL 100 MEQ/L (98-107); CREATININE FOR GFR 0.66 MG/DL (0.55-1.30); GLOMERULAR FILTRATION RATE > 60.0 (>60); GLUCOSE, FASTING 260 MG/DL (70-100); POTASSIUM SERUM 3.7 MEQ/L (3.5-5.1); SODIUM LEVEL 136 MEQ/L (136-145)
[2019-08-29 13:00] LABS: FREE T4 1.17 NG/DL (0.76-1.46); THYROID STIMULATING HORMONE 0.763 uIU/ML (0.358-3.740)
[2019-08-29] MEDS ORDERED: PROT1TAB2 PO (13:51)
[2019-08-29] MEDS ORDERED: KEFL500C17 PO (13:51)
--- NOTE | 2019-08-29 15:14 | DSES ---
DATE OF ADMISSION: 08/26/2019 DATE OF DISCHARGE: 08/29/2019 PRINCIPLE DIAGNOSIS: Nausea and vomiting probably from cyclical vomiting and cannabis use. SECONDARY DIAGNOSES: 1. Cellulitis left abdominal wall. 2. Chronic functional abdominal pain. 3. Dysphagia - mild esophagitis on upper GI series. 4. Hypokalemia. 5. Type 1 diabetes. HISTORY: Parisa Pa was admitted on 08/26/2019 with nausea and vomiting. She has a history of cyclical vomiting syndrome from cannabis use. Was given a prescription of Phenergan that she did fill. Details are in history and physical on admission. HOSPITAL COURSE: She was admitted to a medical bed. Her nausea and vomiting improved. She had a CT of the abdomen and pelvis that was normal. She said she had trouble swallowing so we did a barium swallow. Official report is pending. I spoke with Dr. Villarreal and he thinks there might be some mild esophagitis probably from some reflux, though that was not present when she was doing her barium swallow. Patient has chronic anxiety and depression. She was kept on her Lexapro and trazodone without change. Patient has type 1 diabetes. She was treated with her usual insulin regimen and blood sugar remained well controlled. She had erythema and tenderness develop of the abdominal wall. This resolved within 24 hours of starting ceftaroline, which is a little quick for cellulitis. I am wondering if maybe she had an urticarial plaque present when admitted. Nursing staff called about this. I would be useful to observe this when it was actually present. DISPOSITION: She is discharged home in improved and stable condition. She claims she does not have a primary care provider. She used to see Eileen Goodman in the [place] office but then she moved to [place] but does plan to see her again. If she has not re-established with Ms. Goodman, then patient would be considered unassigned. She was mistakenly admitted to [facility] service during this admission. Our continued care for her is contingent on her re-establishing care with Ms. Goodman. Her activity as tolerated. She will continue with consistent carbohydrate diet. DISCHARGE MEDICATIONS: - Keflex 500 mg twice a day for 5 days - Lexapro 20 mg daily - gabapentin 600 mg three times a day - hydroxyzine 50 mg every 4 hours as needed - NPH insulin 130 units twice a day - Regular insulin per sliding scale - trazodone 100 mg nightly - Compazine suppository every 8 hours as needed - Protonix 40 mg daily for 30 days At the time of dictation, there are no pending labs.
--- NOTE | 2019-08-29 16:53 | REP ---
Examination Requested: Esophagram Barium Swallow Reason For Exam/Comment: Dysphasia Esophagram: The procedure was performed ELLY Tate, under the direct supervision of Dr. Villarreal. The images were reviewed with Dr. Villarreal. A single PA chest x-ray is submitted as a personal care service provider film. The superior mediastinal structures are midline. The heart size is within normal limits. The lungs are clear. Liquid barium and gas producing granules were given in the erect position as well as liquid barium in the prone oblique position, in order to perform a double contrast esophagram examination. Oral and pharyngeal stages of the examination were unremarkable. Esophageal transport is efficient and there is no esophagitis, stricture, or mucosal ring noted. However feline esophagus is visualized. There is a small hiatal hernia noted. Gastroesophageal reflux was not visualized throughout the course of the exam. Impression: 1. Feline esophagus. 2. Small hiatal hernia. 0.2 minutes of fluoroscopy time was utilized for this procedure. Some fluoroscopic images are performed with last image hold technology. These images require no additional radiation. Reviewed by ELLY Isabel 08/29/2019 02:58 P Electronically Signed by Rodney Villarreal MD 08/29/2019 04:43 P
== END 2019-08-29 14:45 | disposition home or self-care (01) | DRG 249 ==
LOC: M ED 16:26 → M ED INP 21:44 → ENRESERV 22:33 → M MSPAV 23:09
PROVIDERS: ADMIT Internal Medicine; ATTEND Family Medicine
DX: R11.15 Cyclical vomiting syndrome unrelated to migraine (principal); E10.65 Type 1 diabetes mellitus with hyperglycemia; L03.311 Cellulitis of abdominal wall; R13.10 Dysphagia, unspecified; E87.6 Hypokalemia; R19.7 Diarrhea, unspecified; Z91.14 Patient's other noncompliance with medication regimen; F41.8 Other specified anxiety disorders; J45.909 Unspecified asthma, uncomplicated; G89.29 Other chronic pain; R10.9 Unspecified abdominal pain; M54.9 Dorsalgia, unspecified; F17.200 Nicotine dependence, unspecified, uncomplicated; F19.10 Other psychoactive substance abuse, uncomplicated; Z79.4 Long term (current) use of insulin; Z79.899 Other long term (current) drug therapy

== ENCOUNTER → 2020-04-09 | Outpatient (REF) | payer OTHER ==
[~2020-04-09] MED LIST changes: +GABA600T4 PO; +HYDR50TA70 PO; +KEFL500C17 PO; +LEXA1TAB2 PO; +PROT1TAB2 PO; +TRAZ-257 PO
[2020-04-09 17:28] LABS: BASO # 0.1 10^3/uL (0.0-0.2); BASO % 0.8 % (0.0-1.0); EOS # 0.4 10^3/uL (0.0-0.5); EOS % 3.6 % (0.0-3.0); HEMATOCRIT 44.7 % (36.0-47.0); HEMOGLOBIN 14.9 g/dl (12.0-15.5); LYMPH # 2.9 10^3/uL (1.5-5.0); LYMPH % 28.8 % (24.0-44.0); MEAN CORPUSCULAR HEMOGLOBIN 32.5 pg (27.0-33.0); MEAN CORPUSCULAR HGB CONC 33.3 g/dl (32.0-36.5); MEAN CORPUSCULAR VOLUME 97.6 fl (80.0-96.0); MONO # 0.8 10^3/uL (0.0-0.8); MONO % 7.9 % (0.0-5.0); NEUTROPHILS # 5.9 10^3/uL (1.5-8.5); NEUTROPHILS % 58.2 % (36.0-66.0); PLATELET COUNT, AUTOMATED 355 10^3/uL (150-450); RED BLOOD COUNT 4.58 10^6/uL (4.00-5.40); WHITE BLOOD COUNT 10.2 10^3/uL (4.0-10.0)
[2020-04-09 17:51] LABS: HEMOGLOBIN A1c 7.8 %
[2020-04-09 17:58] LABS: ALBUMIN 4.2 GM/DL (3.2-5.2); ALT/SGPT 20 U/L (12-78); BILIRUBIN,TOTAL 0.2 MG/DL (0.2-1.0); BLOOD UREA NITROGEN 11 MG/DL (7-18); CALCIUM LEVEL 9.5 MG/DL (8.5-10.1); CARBON DIOXIDE LEVEL 27 MEQ/L (21-32); CHLORIDE LEVEL 102 MEQ/L (98-107); CHOLESTEROL LEVEL 237 MG/DL (<200); CREATININE FOR GFR 0.73 MG/DL (0.55-1.30); GLOMERULAR FILTRATION RATE > 60.0 (>60); GLUCOSE, FASTING 113 MG/DL (70-100); HDL CHOLESTEROL 66 MG/DL (>40); LDL CHOLESTEROL 148 MG/DL (<100); LIPASE 54 U/L (73-393); NON-HDL-C 171 MG/DL; POTASSIUM SERUM 4.5 MEQ/L (3.5-5.1); SODIUM LEVEL 136 MEQ/L (136-145); TRIGLYCERIDES LEVEL 116 MG/DL (<150)
== END ==
LOC: M LAB REF 16:42
PROVIDERS: ATTEND Physician Assistant
DX: E11.69 Type 2 diabetes mellitus with other specified complication (principal)

== ENCOUNTER → 2020-05-02 | Outpatient (REF) | payer OTHER | LOC: M LAB REF 16:02 | PROVIDERS: ATTEND Physician Assistant | DX: Z11.3 Encounter for screening for infections with a predominantly sexual mode of transmission (principal) ==

== ENCOUNTER 2020-06-19 22:19 | Emergency (ER) | payer OTHER ==
[~2020-06-19] VITALS: Ht 172.7 cm; Wt 86.4 kg
--- NOTE | 2020-06-19 23:37 | REPVR ---
PROCEDURE INFORMATION: Exam: XR Right Ankle Exam date and time: 06/19/2020 10:50 PM Age: 35 years old Clinical indication: Pain; Ankle; Right; Additional info: Fall TECHNIQUE: Imaging protocol: XR Right ankle. Views: 3 or more views. COMPARISON: DC Foot, complete 06/12/2017 9:18 AM FINDINGS: Bones/joints: Diffuse demineralization of the bones. Acute fracture of the distal fibular metaphysis. Soft tissues: Normal. IMPRESSION: Acute fracture of the distal fibular metaphysis. Electronically signed by: Ralf Rodriguez On 06/19/2020 23:38:03 PM
[2020-06-19] MEDS ORDERED: NORCO, ANEXSIA 5/325MG TABLET (HYDROcodone/ACETAMINOPHEN) PO ONE (23:45)
[2020-06-20 00:06] VITALS: BP 135/62
== END 2020-06-20 00:09 | disposition home or self-care (01) ==
LOC: M ED 22:19
DX: S82.831A Other fracture of upper and lower end of right fibula, initial encounter for closed fracture (principal); W00.9XXA Unspecified fall due to ice and snow, initial encounter; Y92.093 Driveway of other non-institutional residence as the place of occurrence of the external cause; Y93.9 Activity, unspecified; Y99.9 Unspecified external cause status; E11.9 Type 2 diabetes mellitus without complications; R51.9 Headache, unspecified; J45.909 Unspecified asthma, uncomplicated; K21.9 Gastro-esophageal reflux disease without esophagitis; M54.9 Dorsalgia, unspecified; F41.9 Anxiety disorder, unspecified; F32.9 Major depressive disorder, single episode, unspecified; R45.6 Violent behavior; F17.200 Nicotine dependence, unspecified, uncomplicated; F12.10 Cannabis abuse, uncomplicated; Z79.4 Long term (current) use of insulin; Z79.899 Other long term (current) drug therapy

== ENCOUNTER → 2020-08-22 | Outpatient (CLI) | payer OTHER ==
--- NOTE | 2020-08-22 17:40 | REPVR ---
PROCEDURE INFORMATION: Exam: CT Abdomen Without Contrast Exam date and time: 08/22/2020 5:20 PM Age: 35 years old Clinical indication: Other: Reducable umbilical hernia TECHNIQUE: Imaging protocol: Computed tomography images of the abdomen without contrast. Radiation optimization: All CT scans at this facility use at least one of these dose optimization techniques: automated exposure control; mA and/or kV adjustment per patient size (includes targeted exams where dose is matched to clinical indication); or iterative reconstruction. COMPARISON: Abdomen, limited US 01/25/2017 12:22 PM FINDINGS: Lungs: No suspicious mass or airspace process in the visualized lung bases. Liver: Noncontrast liver shows no obvious lesion. Gallbladder and bile ducts: Gallbladder is present and shows no evidence of gallstone. Pancreas: Noncontrast pancreas shows no obvious mass or adjacent fluid. Spleen: Noncontrast spleen shows no obvious focal deformity. Adrenals: Adrenal glands are normal in appearance. Kidneys and ureters: Kidneys show no stone or hydronephrosis. Stomach and bowel: No evidence of small bowel obstruction. Appendix: Normal-appearing retrocecal appendix is identified, without inflammation. Intraperitoneal space: No pneumoperitoneum. Lymph nodes: No enlarged lymph nodes. Vasculature: No aortic aneurysm. Bones/joints: Bony structures show no acute fracture or destructive process. Soft tissues: Miniscule umbilical hernia is present measuring 7 mm in diameter, containing only fat. No induration or bowel. Exam limitations: Limited evaluation without enteric or IV contrast. IMPRESSION: Small fat containing umbilical hernia measuring 7 mm in diameter with no inflammatory change and no bowel within the hernia. Electronically signed by: Mark Grover On 08/22/2020 17:41:08 PM
== END ==
LOC: M RAD 17:11
PROVIDERS: ATTEND Physician Assistant
DX: K42.9 Umbilical hernia without obstruction or gangrene (principal)

== ENCOUNTER → 2020-10-20 | Outpatient (REF) | payer OTHER ==
[~2020-10-20] MED LIST changes: +ADME100I2 SC; +CYMB1CAP5 PO; +INSU100V8 SQ; +LYRI150C PO; +OMEP40CA97 PO
[2020-10-20 15:01] LABS: CREATININE, URINE 82.6 MG/DL; MALB URINE SIEMENS 7.1 MG/L; MAU/CREAT RATIO 8.5 MCG/MG (0.0-30.0)
[2020-10-20 15:51] LABS: ALBUMIN 4.2 GM/DL (3.2-5.2); ALT/SGPT 33 U/L (12-78); BILIRUBIN,TOTAL 0.3 MG/DL (0.2-1.0); BLOOD UREA NITROGEN 20 MG/DL (7-18); CALCIUM LEVEL 10.1 MG/DL (8.5-10.1); CARBON DIOXIDE LEVEL 28 MEQ/L (21-32); CHLORIDE LEVEL 102 MEQ/L (98-107); CHOLESTEROL LEVEL 236 MG/DL (<200); CHOLESTEROL RISK RATIO 3.323 (<5); CREATININE FOR GFR 0.67 MG/DL (0.55-1.30); GLOMERULAR FILTRATION RATE > 60.0 (>60); GLUCOSE, FASTING 225 MG/DL (70-100); HDL CHOLESTEROL 71 MG/DL (>40); LDL CHOLESTEROL 149 MG/DL (<100); NON-HDL-C 165 MG/DL; POTASSIUM SERUM 4.4 MEQ/L (3.5-5.1); SODIUM LEVEL 137 MEQ/L (136-145); TOTAL PROTEIN 7.9 GM/DL (6.4-8.2); TRIGLYCERIDES LEVEL 81 MG/DL (<150)
== END ==
LOC: M PLALAB 12:57
PROVIDERS: ATTEND Nurse Practitioner Family
DX: E78.00 Pure hypercholesterolemia, unspecified (principal)

== ENCOUNTER → 2021-03-06 | Outpatient (CLI) | payer OTHER ==
[~2021-03-06] MED LIST changes: +OMEP40CA4 PO; -OMEP40CA97 PO; +VENTAER INH
== END ==
LOC: M LABSMTC 10:24
PROVIDERS: ATTEND Anesthesiology
DX: Z01.812 Encounter for preprocedural laboratory examination (principal); Z20.822 Contact with and (suspected) exposure to COVID-19

== ENCOUNTER → 2021-03-10 | Day surgery (SDC) | payer OTHER ==
[~2021-03-10] VITALS: Ht 172.7 cm; Wt 317.5 kg
[~2021-03-10] MED LIST changes: +D5W/0.45% SODIUM CHLORIDE 1,000 ML IV SCH; +LIDOCAINE 2% 100MG/5ML SDV (FOR ANES.) As Ordered ONE; +NS 1,000 ML IV ONE; +fentaNYL 100 MCG/2 ML INJECTION (J3010) As Ordered ONE; +propofoL 200 MG/20 ML VIAL As Ordered ONE
--- NOTE | 2021-03-10 07:48 | ROOR ---
Patient Name: Parisa Pa Procedure Date: 03/10/2021 7:32 AM Date of : 1985 Age: 36 Room: [facility] Gender: Female Note Status: Finalized Procedure: Upper GI endoscopy Indications: Dysphagia Providers: Kevin Mahajan MD Referring MD: Michael Barroso Requesting Provider: Medicines: Monitored Anesthesia Care Complications: No immediate complications. Procedure: Pre-Anesthesia Assessment: - The heart rate, respiratory rate, oxygen saturations, blood pressure, adequacy of pulmonary ventilation, and response to care were monitored throughout the procedure. The Endoscope was introduced through the mouth, and advanced to the second part of duodenum. The upper GI endoscopy was accomplished without difficulty. The patient tolerated the procedure well. Findings: Non-severe esophagitis was found at the gastroesophageal junction. Biopsies were taken with a cold forceps for histology. The exam of the esophagus was otherwise normal. Four biopsies were obtained in the upper third of the esophagus and in the middle third of the esophagus with cold forceps for evaluation of eosinophilic esophagitis. The entire examined stomach was normal. The examined duodenum was normal. Impression: - Non-severe reflux esophagitis at GE junction. Biopsied - Otherwise normal esophagus. Biopsies were obtained in the upper and in the middle third of the esophagus. - Normal stomach. - Normal examined duodenum. Recommendation: - Use Prilosec (omeprazole) 20 mg PO daily for GERD, Reflux related esophageal dyskinesia. - Telephone endoscopist for pathology results in 2 weeks. - Follow an antireflux regimen. Procedure Code(s): --- Professional --- 49503, Esophagogastroduodenoscopy, flexible, transoral; with biopsy, single or multiple Diagnosis Code(s): --- Professional --- R13.10, Dysphagia, unspecified K21.0, Gastro-esophageal reflux disease with esophagitis CPT copyright 2019 [employer]. All rights reserved. The codes documented in this report are preliminary and upon in school suspension aide review may be revised to meet current compliance requirements. Kevin Mahajan MD Kevin Mahajan MD 03/10/2021 7:47:46 AM Electronically signed by Kevin Mahajan MD Number of Addenda: 0 Note Initiated On: 03/10/2021 7:32 AM Estimated Blood Loss: Estimated blood loss: none.
[2021-03-10 08:05] VITALS: BP 143/85
== END | disposition home or self-care (01) ==
LOC: M OPP 06:47
PROVIDERS: ATTEND Internal Medicine Gastroenterology
DX: K21.00 Gastro-esophageal reflux disease with esophagitis, without bleeding (principal); R13.10 Dysphagia, unspecified; R12 Heartburn; Z79.4 Long term (current) use of insulin; Z79.899 Other long term (current) drug therapy; F17.210 Nicotine dependence, cigarettes, uncomplicated
CPT/HCPCS: 43239; 88305; J3010

== ENCOUNTER 2021-06-11 21:30 | Emergency (ER) | payer OTHER ==
[~2021-06-11] VITALS: Ht 170.2 cm; Wt 89.4 kg
[~2021-06-11 21:30] MED LIST changes: -D5W/0.45% SODIUM CHLORIDE 1,000 ML IV SCH; -LIDOCAINE 2% 100MG/5ML SDV (FOR ANES.) As Ordered ONE; -NS 1,000 ML IV ONE; -fentaNYL 100 MCG/2 ML INJECTION (J3010) As Ordered ONE; -propofoL 200 MG/20 ML VIAL As Ordered ONE
[2021-06-12] MEDS: SODIUM CHLORIDE IV ONE (00:30)
[2021-06-12 02:21] LABS: VENOUS BASE EXCESS -0.3 (-2.0-2.0); VENOUS HCO3 26.1 MEQ/L (23.0-27.0); VENOUS O2 SATURATION 85.9 % (60.0-80.0); VENOUS PARTIAL PRESSURE CO2 49.9 mmHg (38.0-50.0); VENOUS PH 7.337 UNITS (7.330-7.430); VENOUS TOTAL CO2 27.7 MEQ/L (24.0-28.0)
[2021-06-12 02:24] LABS: BASO # 0.1 10^3/uL (0.0-0.2); BASO % 0.8 % (0.0-1.0); EOS # 0.4 10^3/uL (0.0-0.5); EOS % 4.1 % (0.0-3.0); HEMATOCRIT 36.7 % (36.0-47.0); LYMPH # 3.4 10^3/uL (1.5-5.0); LYMPH % 32.2 % (24.0-44.0); MEAN CORPUSCULAR HEMOGLOBIN 30.7 pg (27.0-33.0); MEAN CORPUSCULAR HGB CONC 32.7 g/dl (32.0-36.5); MEAN CORPUSCULAR VOLUME 93.9 fl (80.0-96.0); MONO % 8.9 % (2.0-8.0); NEUTROPHILS # 5.7 10^3/uL (1.5-8.5); NEUTROPHILS % 53.2 % (36.0-66.0); PLATELET COUNT, AUTOMATED 323 10^3/uL (150-450); RED BLOOD COUNT 3.91 10^6/uL (4.00-5.40); WHITE BLOOD COUNT 10.6 10^3/uL (4.0-10.0)
[2021-06-12 02:46] LABS: HEMOGLOBIN A1c 7.7 %
[2021-06-12 02:58] LABS: RSV AMPLIFICATION NEGATIVE (NEGATIVE)
[2021-06-12] MEDS: ALBUTEROL 90 MCG/ACT 8GM HFA INHALER INH ONE (03:24)
--- NOTE | 2021-06-12 03:56 | REPVR ---
PROCEDURE INFORMATION: Exam: CT Abdomen And Pelvis Without Contrast Exam date and time: 06/12/2021 12:41 AM Age: 36 years old Clinical indication: Abdominal pain; Flank; Right; Additional info: Flank pain right TECHNIQUE: Imaging protocol: Computed tomography of the abdomen and pelvis without contrast. Radiation optimization: All CT scans at this facility use at least one of these dose optimization techniques: automated exposure control; mA and/or kV adjustment per patient size (includes targeted exams where dose is matched to clinical indication); or iterative reconstruction. COMPARISON: CT Abdomen without contrast 08/22/2020 5:25 PM FINDINGS: Lungs: There is linear atelectasis or scarring at the left lung base. There is right basilar airspace disease. Diaphragm: Elevation of the left hemidiaphragm. Liver: Hepatomegaly measures 18 cm. Gallbladder and bile ducts: Normal. No calcified stones. No ductal dilation. Pancreas: Normal. No ductal dilation. Spleen: Normal. No splenomegaly. Adrenal glands: Normal. No mass. Kidneys and ureters: No hydronephrosis. Stomach and bowel: Moderate colonic fecal retention. Appendix: Appendix is normal. Intraperitoneal space: Unremarkable. No free air. No significant fluid collection. Vasculature: Mild vascular calcification. There are several phleboliths within the pelvis. Lymph nodes: Unremarkable. No enlarged lymph nodes. Urinary bladder: Unremarkable as visualized. Reproductive: Unremarkable as visualized. Bones/joints: Unremarkable. No acute fracture. Soft tissues: Unremarkable. IMPRESSION: 1. No acute abnormality involving the abdomen or pelvis. 2. Right lower lobe airspace disease concerning for pneumonia. 3. Additional findings as above. Electronically signed by: Joe Rockwell On 06/12/2021 03:56:33 AM
--- NOTE | 2021-06-12 04:10 | REPVR ---
PROCEDURE INFORMATION: Exam: XR Chest Exam date and time: 06/12/2021 3:07 AM Age: 36 years old Clinical indication: Cough; Additional info: Decreased lung sounds left/cough TECHNIQUE: Imaging protocol: XR of the chest. Views: 2 views. COMPARISON: CR PORTABLE CHEST X-RAY 04/29/2019 11:44 AM FINDINGS: Lungs: There are atelectatic changes at the left lung base. Airspace disease at the right lower lobe/right lung base is better demonstrated on CT. Pleural spaces: Unremarkable. No pleural effusion. No pneumothorax. Heart/Mediastinum: Unremarkable. No cardiomegaly. Diaphragm: Elevation of the left hemidiaphragm. Bones/joints: Unremarkable. IMPRESSION: 1. Airspace disease at the right lower lobe is better demonstrated on CT. 2. Left basilar atelectasis. Electronically signed by: Joe Rockwell On 06/12/2021 04:09:07 AM
[2021-06-12 04:16] LABS: ACETONE/KETONE 1.06 MG/DL (<2.81); ALBUMIN 3.2 GM/DL (3.2-5.2); ALT/SGPT 17 U/L (12-78); BILIRUBIN,DIRECT < 0.1 MG/DL (0.0-0.2); BILIRUBIN,TOTAL 0.1 MG/DL (0.2-1.0); LIPASE 64 U/L (73-393); TOTAL PROTEIN 6.7 GM/DL (6.4-8.2)
[2021-06-12 04:48] LABS: OSMOLALITY SERUM 293 MOSM/KG (275-295)
[2021-06-12] MEDS ORDERED: AZIT500T5 PO (05:39)
[2021-06-12] MEDS ORDERED: AUGM875T28 PO (05:39)
[2021-06-12 06:00] VITALS: BP 124/72
[2021-06-12] MEDS: AUGMENTIN 875 MG TAB PO ONE (06:07)
== END 2021-06-12 06:25 | disposition home or self-care (01) ==
LOC: M ED 21:30
DX: J18.9 Pneumonia, unspecified organism (principal); R91.8 Other nonspecific abnormal finding of lung field; E10.9 Type 1 diabetes mellitus without complications; Z79.4 Long term (current) use of insulin; Z79.899 Other long term (current) drug therapy; Z98.890 Other specified postprocedural states

== ENCOUNTER 2021-10-06 09:56 | Emergency (ER) | payer OTHER ==
[~2021-10-06] VITALS: Ht 170.2 cm; Wt 86.8 kg
[~2021-10-06 09:56] MED LIST changes: +AUGM875T28 PO; +AZIT500T5 PO
[2021-10-06] MEDS ORDERED: BASA100I (10:08)
[2021-10-06] MEDS ORDERED: cefTRIAXone SOD 1GM VIAL (J0696 PER 250MG) IM ONE (12:35)
[2021-10-06] MEDS ORDERED: LIDOCAINE 1% SDV 5ML VIAL DILUENT ONE (12:35)
[2021-10-06] MEDS ORDERED: CEPH500C PO (12:38)
[2021-10-06 12:59] VITALS: BP 140/95
== END 2021-10-06 13:13 | disposition home or self-care (01) ==
LOC: M ED 09:56
DX: L03.011 Cellulitis of right finger (principal); E11.9 Type 2 diabetes mellitus without complications; J45.909 Unspecified asthma, uncomplicated; F17.200 Nicotine dependence, unspecified, uncomplicated; Z79.4 Long term (current) use of insulin; Z79.899 Other long term (current) drug therapy
CPT/HCPCS: 96372; 99283; J0696

== ENCOUNTER → 2021-11-18 | Outpatient (REF) | payer OTHER ==
[~2021-11-18] MED LIST changes: +BASA100I; +CEPH500C PO
[2021-11-18 13:06] LABS: HEMATOCRIT 41.6 % (36.0-47.0); HEMOGLOBIN 13.6 g/dl (12.0-15.5); MEAN CORPUSCULAR HEMOGLOBIN 31.4 pg (27.0-33.0); MEAN CORPUSCULAR HGB CONC 32.7 g/dl (32.0-36.5); MEAN CORPUSCULAR VOLUME 96.1 fl (80.0-96.0); PLATELET COUNT, AUTOMATED 305 10^3/uL (150-450); RED BLOOD COUNT 4.33 10^6/uL (4.00-5.40); WHITE BLOOD COUNT 8.1 10^3/uL (4.0-10.0)
[2021-11-18 14:09] LABS: HEMOGLOBIN A1c 8.1 %
[2021-11-18 14:28] LABS: HCG, SERUM QUANTITATIVE 3524 MIU/ML; HEPATITIS B SURFACE ANTIGEN NEGATIVE (NEGATIVE); HEPATITIS C VIRUS ABY INDEX 0.1 INDEX (<0.8); HIV 1&2 SCREEN CENTAUR NEGATIVE (NEGATIVE)
== END ==
LOC: M LAB REF 12:27
PROVIDERS: ATTEND Obstetrics & Gynecology
DX: Z32.01 Encounter for pregnancy test, result positive (principal); O36.80X0 Pregnancy with inconclusive fetal viability, not applicable or unspecified

== ENCOUNTER → 2021-12-15 | Outpatient (REF) | payer OTHER | LOC: M LAB REF 12:14 | PROVIDERS: ATTEND Obstetrics & Gynecology | DX: O03.9 Complete or unspecified spontaneous abortion without complication (principal) ==

== ENCOUNTER → 2021-12-24 | Outpatient (REF) | payer OTHER | LOC: M LAB REF 16:11 | PROVIDERS: ATTEND Obstetrics & Gynecology | DX: O03.9 Complete or unspecified spontaneous abortion without complication (principal) ==

== ENCOUNTER → 2021-12-31 | Outpatient (REF) | payer OTHER | LOC: M LAB REF 16:35 | PROVIDERS: ATTEND Obstetrics & Gynecology | DX: O03.9 Complete or unspecified spontaneous abortion without complication (principal) ==

== ENCOUNTER 2022-09-28 06:11 | Emergency (ER) | payer OTHER ==
[~2022-09-28] VITALS: Ht 170.2 cm; Wt 81.4 kg
[2022-09-28] MEDS ORDERED: DEXTROSE 50% 50ML SYRINGE IV STA (06:16)
[2022-09-28] MEDS ORDERED: DEXTROSE 50% 50ML SYRINGE As Ordered ONE (06:16)
[2022-09-28 06:36] LABS: BASO % 0.5 % (0.0-1.0); EOS # 0.1 10^3/uL (0.0-0.5); EOS % 1.4 % (0.0-3.0); HEMATOCRIT 42.6 % (36.0-47.0); HEMOGLOBIN 14.2 g/dl (12.0-15.5); LYMPH # 2.1 10^3/uL (1.5-5.0); MEAN CORPUSCULAR HEMOGLOBIN 32.1 pg (27.0-33.0); MEAN CORPUSCULAR HGB CONC 33.3 g/dl (32.0-36.5); MEAN CORPUSCULAR VOLUME 96.2 fl (80.0-96.0); MONO # 0.8 10^3/uL (0.0-0.8); MONO % 9.1 % (2.0-8.0); NEUTROPHILS # 5.6 10^3/uL (1.5-8.5); NEUTROPHILS % 64.5 % (36.0-66.0); PLATELET COUNT, AUTOMATED 276 10^3/uL (150-450); RED BLOOD COUNT 4.43 10^6/uL (4.00-5.40); WHITE BLOOD COUNT 8.7 10^3/uL (4.0-10.0)
[2022-09-28 07:06] LABS: CK-MB VALUE MASS 2.8 NG/ML (<3.6); ETHYL ALCOHOL (ETHANOL) 0.005 % (0.000-0.010)
[2022-09-28 07:07] LABS: HCG, SERUM QUALITATIVE NEGATIVE (NEGATIVE)
[2022-09-28 07:08] LABS: CPK CREATINE PHOSPHOKINASE 259 U/L (34-145); MB/CK RELATIVE INDEX 1.08 (< OR =4)
[2022-09-28 07:10] LABS: THYROID STIMULATING HORMONE 2.818 uIU/ML (0.55-4.78)
[2022-09-28 07:28] LABS: ALBUMIN 4.5 G/DL (3.2-5.2); ALKALINE PHOSPHATASE 67 U/L (46-116); ALT/SGPT 25 U/L (7.0-40); AST/SGOT 24 U/L (<34); BILIRUBIN,DIRECT 0.5 MG/DL (<0.4); BILIRUBIN,TOTAL 1.4 MG/DL (0.3-1.2); BLOOD UREA NITROGEN 17 MG/DL (9-23); CALCIUM LEVEL 9.2 MG/DL (8.5-10.1); CARBON DIOXIDE LEVEL 26 MMOL/L (20-31); CHLORIDE LEVEL 103 MMOL/L (98-107); CREATININE FOR GFR 0.53 MG/DL (0.55-1.30); GLOMERULAR FILTRATION RATE > 60.0 (>60); GLUCOSE, FASTING 37 MG/DL (60-100); POTASSIUM SERUM 3.5 MMOL/L (3.5-5.1); SODIUM LEVEL 137 MMOL/L (136-145); TOTAL PROTEIN 7.8 G/DL (5.7-8.2)
[2022-09-28 09:26] LABS: INR 0.98; PROTHROMBIN TIME 13.2 SECONDS (12.5-14.5)
[2022-09-28 09:27] LABS: PARTIAL THROMBOPLASTIN TIME 26.2 SECONDS (24.8-34.2)
[2022-09-28 09:36] LABS: BARBITURATES URINE NEGATIVE (NEGATIVE); BENZODIAZEPINES URINE NEGATIVE (NEGATIVE); METHADONE URINE NEGATIVE (NEGATIVE); PHENCYCLIDINE URINE NEGATIVE (NEGATIVE)
[2022-09-28 09:37] LABS: OPIATES URINE NEGATIVE (NEGATIVE)
[2022-09-28 09:39] LABS: AMPHETAMINES LEVEL URINE POSITIVE (NEGATIVE); CANNABINOIDS URINE POSITIVE (NEGATIVE); COCAINE METABOLITE URINE POSITIVE (NEGATIVE)
[2022-09-28 09:55] VITALS: BP 136/65
[2022-09-28 20:21] LABS: RSV AMPLIFICATION NEGATIVE (NEGATIVE)
== END 2022-09-28 10:20 | disposition home or self-care (01) ==
LOC: M ED 06:11 → EDBD 06:11 → M ED 10:20
DX: E10.649 Type 1 diabetes mellitus with hypoglycemia without coma (principal); F19.10 Other psychoactive substance abuse, uncomplicated; Z79.4 Long term (current) use of insulin; Z79.899 Other long term (current) drug therapy

== ENCOUNTER 2022-10-31 15:25 | Emergency (ER) | payer OTHER ==
[~2022-10-31] VITALS: Ht 170.2 cm; Wt 81.8 kg
[2022-10-31 15:36] VITALS: BP 126/72
[2022-10-31] MEDS ORDERED: NS 1,000 ML IV ONE (17:05)
[2022-10-31] MEDS ORDERED: MORPHINE 4 MG/ML 1ML VIAL IV ONE (17:05)
[2022-10-31] MEDS ORDERED: ISOVUE-370 76% 100ML VIAL As Ordered ONE (18:23)
[2022-10-31 18:24] LABS: BASO # 0.1 10^3/uL (0.0-0.2); BASO % 0.4 % (0.0-1.0); EOS # 0.2 10^3/uL (0.0-0.5); HEMOGLOBIN 13.5 g/dl (12.0-15.5); LYMPH # 2.3 10^3/uL (1.5-5.0); LYMPH % 19.4 % (24.0-44.0); MEAN CORPUSCULAR HEMOGLOBIN 32.3 pg (27.0-33.0); MEAN CORPUSCULAR HGB CONC 33.8 g/dl (32.0-36.5); MEAN CORPUSCULAR VOLUME 95.7 fl (80.0-96.0); MONO # 0.8 10^3/uL (0.0-0.8); MONO % 6.9 % (2.0-8.0); NEUTROPHILS # 8.2 10^3/uL (1.5-8.5); NEUTROPHILS % 70.7 % (36.0-66.0); PLATELET COUNT, AUTOMATED 276 10^3/uL (150-450); RED BLOOD COUNT 4.18 10^6/uL (4.00-5.40); WHITE BLOOD COUNT 11.6 10^3/uL (4.0-10.0)
[2022-10-31 18:38] LABS: INR 0.91; PROTHROMBIN TIME 12.4 SECONDS (12.5-14.5)
[2022-10-31 18:39] LABS: PARTIAL THROMBOPLASTIN TIME 30.5 SECONDS (24.8-34.2)
[2022-10-31 18:50] LABS: ALBUMIN 4.2 G/DL (3.2-5.2); BILIRUBIN,DIRECT 0.2 MG/DL (<0.4); BILIRUBIN,TOTAL 0.7 MG/DL (0.3-1.2); TOTAL PROTEIN 7.2 G/DL (5.7-8.2)
[2022-10-31] MEDS ORDERED: PERCOCET 5MG/325MG TAB PO ONE (19:45)
[2022-10-31] MEDS ORDERED: MIRA3350 PO (21:02)
[2022-10-31] MEDS ORDERED: PERC5TAB12 PO (21:02)
== END 2022-10-31 21:45 | disposition home or self-care (01) ==
LOC: M ED 15:25
DX: S32.020A Wedge compression fracture of second lumbar vertebra, initial encounter for closed fracture (principal); Y04.8XXA Assault by other bodily force, initial encounter; Y92.009 Unspecified place in unspecified non-institutional (private) residence as the place of occurrence of the external cause; N83.291 Other ovarian cyst, right side; E11.9 Type 2 diabetes mellitus without complications; K21.9 Gastro-esophageal reflux disease without esophagitis; Z79.4 Long term (current) use of insulin; Z79.899 Other long term (current) drug therapy
CPT/HCPCS: 72128; 72131; 74177; 76830; 76856; 80047; 80076; 83690; 84702; 85025; 85610; 85730; 86850; 86900; 86901; 93976; 96374; 99284; Q9967

== ENCOUNTER 2023-05-11 18:46 | Emergency (ER) | payer OTHER ==
[~2023-05-11] VITALS: Ht 170.2 cm; Wt 77.5 kg
[~2023-05-11 18:46] MED LIST changes: +MIRA3350 PO; +PERC5TAB12 PO
[2023-05-11 19:12] LABS: HEMATOCRIT 36.6 % (36.0-47.0); HEMOGLOBIN 12.7 g/dl (12.0-15.5); MEAN CORPUSCULAR HEMOGLOBIN 32.9 pg (27.0-33.0); MEAN CORPUSCULAR HGB CONC 34.7 g/dl (32.0-36.5); MEAN CORPUSCULAR VOLUME 94.8 fl (80.0-96.0); PLATELET COUNT, AUTOMATED 326 10^3/uL (150-450); RED BLOOD COUNT 3.86 10^6/uL (4.00-5.40)
[2023-05-11 19:41] LABS: ALBUMIN 3.8 G/DL (3.2-5.2); ALKALINE PHOSPHATASE 74 U/L (46-116); ALT/SGPT 37 U/L (7.0-40); AST/SGOT 14 U/L (<34); BILIRUBIN,DIRECT < 0.1 MG/DL (<0.4); BILIRUBIN,TOTAL 0.2 MG/DL (0.3-1.2); BLOOD UREA NITROGEN 9 MG/DL (9-23); CALCIUM LEVEL 9.4 MG/DL (8.5-10.1); CARBON DIOXIDE LEVEL 20 MMOL/L (20-31); CHLORIDE LEVEL 108 MMOL/L (98-107); CREATININE FOR GFR 0.46 MG/DL (0.55-1.30); GLOMERULAR FILTRATION RATE > 60.0 (>58); GLUCOSE, FASTING 294 MG/DL (60-100); POTASSIUM SERUM 3.9 MMOL/L (3.5-5.1); SALICYLATE LEVEL < 3.0 MG/DL (<30); SODIUM LEVEL 139 MMOL/L (136-145); TOTAL PROTEIN 7.1 G/DL (5.7-8.2)
[2023-05-11 19:42] LABS: THYROID STIMULATING HORMONE 0.852 uIU/ML (0.55-4.78)
[2023-05-11 19:59] LABS: ETHYL ALCOHOL (ETHANOL) 0.384 % (0.000-0.010)
[2023-05-11 20:14] LABS: HCG, SERUM QUALITATIVE NEGATIVE (NEGATIVE)
[2023-05-11] MEDS ORDERED: LORazepam 1 MG TAB PO ONE (22:15)
[2023-05-11] MEDS ORDERED: LORazepam 2 MG TAB PO ONE (22:15)
[2023-05-11 22:41] LABS: AMPHETAMINES LEVEL URINE NEGATIVE (NEGATIVE)
[2023-05-11 22:42] LABS: BARBITURATES URINE NEGATIVE (NEGATIVE); BENZODIAZEPINES URINE NEGATIVE (NEGATIVE); CANNABINOIDS URINE NEGATIVE (NEGATIVE); COCAINE METABOLITE URINE NEGATIVE (NEGATIVE); METHADONE URINE NEGATIVE (NEGATIVE); OPIATES URINE NEGATIVE (NEGATIVE); PHENCYCLIDINE URINE NEGATIVE (NEGATIVE)
[2023-05-12] MEDS ORDERED: MIDAZOLAM INJ 2MG/2ML VIAL IM ONE (00:25)
[2023-05-12] MEDS ORDERED: diphenhydrAMINE 50MG/ML VIAL IM ONE (00:25)
[2023-05-12] MEDS ORDERED: HALOPERIDOL 5MG/ML 1ML VIAL IM ONE (00:25)
[2023-05-12] MEDS ORDERED: LEVEMIR (INSULIN DETEMIR) 1 UNITS/0.01ML SC ONE (08:05)
[2023-05-12 13:16] VITALS: BP 138/88; TEMP 97.5; O2SAT 100
== END 2023-05-12 13:25 | disposition home or self-care (01) ==
LOC: M ED 18:46
DX: F10.129 Alcohol abuse with intoxication, unspecified (principal); Y90.8 Blood alcohol level of 240 mg/100 ml or more; Z11.52 Encounter for screening for COVID-19
CPT/HCPCS: 80048; 80076; 80143; 80307; 82077; 84443; 84703; 85027; 87635; 96372; 99285; J1200; J1815; J2250

== ENCOUNTER 2024-03-23 19:04 | Emergency (ER) | payer OTHER ==
[~2024-03-23] VITALS: Ht 170.2 cm; Wt 75.0 kg
[~2024-03-23 19:04] MED LIST changes: +GABA-1490 PO; -GABA600T4 PO; +INSU100V19 SC; -INSURSD SC; -PROC25SU24 PR; +PROC25SU27 PR
[2024-03-23 20:21] LABS: HEMATOCRIT 39.1 % (36.0-47.0); HEMOGLOBIN 13.3 g/dl (12.0-15.5); MEAN CORPUSCULAR HEMOGLOBIN 32.4 pg (27.0-33.0); MEAN CORPUSCULAR VOLUME 95.1 fl (80.0-96.0); PLATELET COUNT, AUTOMATED 316 10^3/uL (150-450); RED BLOOD COUNT 4.11 10^6/uL (4.00-5.40); WHITE BLOOD COUNT 7.5 10^3/uL (4.0-10.0)
[2024-03-23 20:32] LABS: ETHYL ALCOHOL (ETHANOL) < 0.003 % (0.000-0.010)
[2024-03-23 20:34] LABS: ALKALINE PHOSPHATASE 67 U/L (46-116); ALT/SGPT 25 U/L (7.0-40); AST/SGOT 14 U/L (<34); BILIRUBIN,DIRECT 0.2 MG/DL (<0.4); BILIRUBIN,TOTAL 0.6 MG/DL (0.3-1.2); BLOOD UREA NITROGEN 13 MG/DL (9-23); CALCIUM LEVEL 9.8 MG/DL (8.5-10.1); CARBON DIOXIDE LEVEL 25 MMOL/L (20-31); CHLORIDE LEVEL 110 MMOL/L (98-107); CREATININE FOR GFR 0.63 MG/DL (0.55-1.30); GLOMERULAR FILTRATION RATE > 60.0 (>58); GLUCOSE, FASTING 183 MG/DL (60-100); POTASSIUM SERUM 3.6 MMOL/L (3.5-5.1); SALICYLATE LEVEL < 3.0 MG/DL (<30); SODIUM LEVEL 141 MMOL/L (136-145); TOTAL PROTEIN 7.4 G/DL (5.7-8.2)
[2024-03-23 20:36] LABS: THYROID STIMULATING HORMONE 2.148 uIU/ML (0.55-4.78)
[2024-03-23 20:39] LABS: HCG, SERUM QUALITATIVE NEGATIVE (NEGATIVE)
[2024-03-23] MEDS ORDERED: HOME MED LIST COMPLETE! XX SCH (21:35)
[2024-03-23 21:47] LABS: BARBITURATES URINE NEGATIVE (NEGATIVE); BENZODIAZEPINES URINE NEGATIVE (NEGATIVE); CANNABINOIDS URINE NEGATIVE (NEGATIVE); COCAINE METABOLITE URINE NEGATIVE (NEGATIVE); METHADONE URINE NEGATIVE (NEGATIVE); OPIATES URINE NEGATIVE (NEGATIVE); PHENCYCLIDINE URINE NEGATIVE (NEGATIVE)
[2024-03-23 21:49] LABS: AMPHETAMINES LEVEL URINE POSITIVE (NEGATIVE)
[2024-03-23] MEDS ORDERED: GUAI400T9 PO (21:53)
[2024-03-23] MEDS ORDERED: [UNRECOGNIZED DRUG - CODE] PO (21:53)
[2024-03-23 22:50] VITALS: BP 138/82; TEMP 96.8; O2SAT 100
== END 2024-03-23 23:06 | disposition home or self-care (01) ==
LOC: M ED 19:04
DX: Z04.6 Encounter for general psychiatric examination, requested by authority (principal); E11.9 Type 2 diabetes mellitus without complications; J45.909 Unspecified asthma, uncomplicated; F41.9 Anxiety disorder, unspecified; F32.A Depression, unspecified; M54.50 Low back pain, unspecified; F10.10 Alcohol abuse, uncomplicated; Z79.52 Long term (current) use of systemic steroids; Z79.4 Long term (current) use of insulin; Z79.899 Other long term (current) drug therapy

== ENCOUNTER 2024-09-27 06:13 | Emergency (ER) | payer OTHER ==
[~2024-09-27] VITALS: Ht 170.2 cm; Wt 81.1 kg
[~2024-09-27 06:13] MED LIST changes: +GUAI400T9 PO; +[UNRECOGNIZED DRUG - CODE] PO
[2024-09-27 06:15] VITALS: TEMP 98.2
[2024-09-27 07:34] LABS: VENOUS BASE EXCESS -4.4 (-2.0-2.0); VENOUS HCO3 18.6 MMOL/L (23.0-27.0); VENOUS O2 SATURATION 96.5 % (60.0-80.0); VENOUS PARTIAL PRESSURE CO2 28.3 mmHg (38.0-50.0); VENOUS PARTIAL PRESSURE O2 82.4 mmHg (30.0-50.0); VENOUS PH 7.436 UNITS (7.330-7.430); VENOUS STANDARD HCO3 20.8 MMOL/L; VENOUS TOTAL CO2 19.5 MMOL/L (24.0-28.0)
[2024-09-27] MEDS: NS (Normal Saline) 0.9% 1,000 ML IV ONE ×2 (07:47→10:09)
[2024-09-27 08:11] LABS: HEMATOCRIT 32.5 % (36.0-47.0); MEAN CORPUSCULAR HEMOGLOBIN 32.4 pg (27.0-33.0); MEAN CORPUSCULAR HGB CONC 33.8 g/dl (32.0-36.5); MEAN CORPUSCULAR VOLUME 95.9 fl (80.0-96.0); PLATELET COUNT, AUTOMATED 222 10^3/uL (150-450); RED BLOOD COUNT 3.39 10^6/uL (4.00-5.40); WHITE BLOOD COUNT 9.1 10^3/uL (4.0-10.0)
[2024-09-27 08:14] LABS: HEMOGLOBIN A1c 8.5 % (4.0-6.0)
[2024-09-27 08:35] LABS: KETONE, URINE AUTO RFX 1+ mg/dL (NEGATIVE); LEUKOCYTE ESTERASE UR AUTO RFX TRACE (NEGATIVE); MUCUS, URINE RFX SMALL (NEGATIVE); NITRITE, URINE AUTO RFX NEGATIVE (NEGATIVE); RBC, URINE AUTO RFX 0 /HPF (0-3); SQUAM EPITHELIAL CELL UR AURFX 2 /HPF (0-6); WBC, URINE AUTO RFX 24 /HPF (0-3)
[2024-09-27 08:46] LABS: LIPASE 19 U/L (12-53)
[2024-09-27 08:48] LABS: ACETONE/KETONE 1.76 MMOL/L (0.02-0.27)
[2024-09-27 08:58] LABS: BARBITURATES URINE NEGATIVE (NEGATIVE); BENZODIAZEPINES URINE NEGATIVE (NEGATIVE); COCAINE METABOLITE URINE NEGATIVE (NEGATIVE); METHADONE URINE NEGATIVE (NEGATIVE); OPIATES URINE NEGATIVE (NEGATIVE); PHENCYCLIDINE URINE NEGATIVE (NEGATIVE)
[2024-09-27 09:03] LABS: AMPHETAMINES LEVEL URINE POSITIVE (NEGATIVE); CANNABINOIDS URINE POSITIVE (NEGATIVE)
[2024-09-27 09:03] LABS: OSMOLALITY SERUM 291 MOSM/KG (275-295)
[2024-09-27 09:06] LABS: ALBUMIN 2.4 G/DL (3.2-5.2); ALKALINE PHOSPHATASE 73 U/L (35-104); ALT/SGPT 21 U/L (7.0-40); AST/SGOT 21 U/L (<34); BILIRUBIN,DIRECT 0.1 MG/DL (<0.4); BILIRUBIN,TOTAL 0.4 MG/DL (0.3-1.2); BLOOD UREA NITROGEN 16 MG/DL (9-23); CARBON DIOXIDE LEVEL 20 MMOL/L (20-31); CHLORIDE LEVEL 98 MMOL/L (98-107); CREATININE FOR GFR 0.67 MG/DL (0.55-1.30); GLOMERULAR FILTRATION RATE > 90.0 (>58); GLUCOSE, FASTING 576 MG/DL (60-100); HCG, SERUM QUALITATIVE NEGATIVE (NEGATIVE); POTASSIUM SERUM 4.1 MMOL/L (3.5-5.1); SODIUM LEVEL 127 MMOL/L (136-145); TOTAL PROTEIN 5.4 G/DL (5.7-8.2)
[2024-09-27 09:07] LABS: EOSINOPHILS 1 % (0-3); LYMPHOCYTES 9 % (16-44); METAMYELOCYTES 2 % (0-0); MONOCYTES 5 % (0-5); NEUTROPHILS 74 % (28-66); PLATELET ESTIMATE NORMAL (NORMAL)
[2024-09-27] MEDS ORDERED: ISOVUE-370 76% 100ML VIAL As Ordered ONE (09:32)
[2024-09-27] MEDS ORDERED: HOME MED LIST COMPLETE! XX SCH (09:35)
[2024-09-27] MEDS: HumuLIN R (REGULAR) INSULIN (NovoLIN R) **100U/ML** PER UNIT IV ONE (10:09)
[2024-09-27] MEDS: KETOROLAC 30 MG/ML 1ML VIAL IV ONE (10:10)
[2024-09-27] MEDS: LanTUS (INSULIN GLARGINE INJ) 1 UNITS/0.01 ML SC ONE (12:40)
[2024-09-27] MEDS ORDERED: GLUCMIS7 XX (12:45)
[2024-09-27] MEDS ORDERED: CARE1KIT XX (12:45)
[2024-09-27] MEDS: PREGABALIN 25 MG CAP (LYRICA) PO ONE (12:56)
[2024-09-27 13:04] VITALS: BP 132/86; O2SAT 99
== END 2024-09-27 13:06 | disposition home or self-care (01) ==
LOC: M ED 06:55
DX: E10.65 Type 1 diabetes mellitus with hyperglycemia (principal); K76.0 Fatty (change of) liver, not elsewhere classified; K59.00 Constipation, unspecified; Z79.52 Long term (current) use of systemic steroids; Z79.899 Other long term (current) drug therapy
CPT/HCPCS: 74177; 80047; 80048; 80076; 80307; 81001; 82010; 82803; 83036; 83690; 83930; 84703; 85025; 87088; 87186; 93005; 93041; 94760; 96361; 96374; 96375; 99285; J1815; J1885; Q9967

== ENCOUNTER 2024-09-29 07:01 | Inpatient (IN) | payer OTHER ==
[~2024-09-29] VITALS: Ht 170.2 cm; Wt 79.5 kg
[~2024-09-29 07:01] MED LIST changes: +CARE1KIT XX; +GLUCMIS7 XX
[2024-09-29 08:09] LABS: VENOUS BASE EXCESS -5.7 (-2.0-2.0); VENOUS HCO3 17.7 MMOL/L (23.0-27.0); VENOUS O2 SATURATION 89.6 % (60.0-80.0); VENOUS PARTIAL PRESSURE CO2 28.3 mmHg (38.0-50.0); VENOUS PARTIAL PRESSURE O2 55.1 mmHg (30.0-50.0); VENOUS PH 7.413 UNITS (7.330-7.430); VENOUS STANDARD HCO3 19.6 MMOL/L; VENOUS TOTAL CO2 18.5 MMOL/L (24.0-28.0)
[2024-09-29 08:15] LABS: BASO % 0.6 % (0.0-1.0); EOS % 0.2 % (0.0-3.0); HEMATOCRIT 29.8 % (36.0-47.0); HEMOGLOBIN 10.3 g/dl (12.0-15.5); LYMPH # 0.7 10^3/uL (1.5-5.0); LYMPH % 10.2 % (24.0-44.0); MEAN CORPUSCULAR HEMOGLOBIN 32.4 pg (27.0-33.0); MEAN CORPUSCULAR HGB CONC 34.6 g/dl (32.0-36.5); MEAN CORPUSCULAR VOLUME 93.7 fl (80.0-96.0); MONO # 0.9 10^3/uL (0.0-0.8); MONO % 14.2 % (2.0-8.0); NEUTROPHILS # 4.8 10^3/uL (1.5-8.5); NEUTROPHILS % 73.6 % (36.0-66.0); PLATELET COUNT, AUTOMATED 176 10^3/uL (150-450); RED BLOOD COUNT 3.18 10^6/uL (4.00-5.40); WHITE BLOOD COUNT 6.5 10^3/uL (4.0-10.0)
[2024-09-29] MEDS: ACETAMINOPHEN 500 MG TAB PO ONE ×2 (08:26→16:18)
[2024-09-29] MEDS: KETOROLAC 30 MG/ML 1ML VIAL IV ONE ×2 (08:26→16:19)
[2024-09-29] MEDS: NS (Normal Saline) 0.9% 2,390 ML in IV 1 EA IV ONE (08:26)
[2024-09-29 08:40] LABS: LIPASE 13 U/L (12-53)
[2024-09-29 08:42] LABS: ALBUMIN 2.3 G/DL (3.2-5.2); ALKALINE PHOSPHATASE 83 U/L (35-104); ALT/SGPT 32 U/L (7.0-40); AST/SGOT 43 U/L (<34); BILIRUBIN,TOTAL 0.4 MG/DL (0.3-1.2); BLOOD UREA NITROGEN 12 MG/DL (9-23); CALCIUM LEVEL 8.2 MG/DL (8.5-10.1); CARBON DIOXIDE LEVEL 20 MMOL/L (20-31); CHLORIDE LEVEL 101 MMOL/L (98-107); CREATININE FOR GFR 0.73 MG/DL (0.55-1.30); GLOMERULAR FILTRATION RATE > 90.0 (>58); GLUCOSE, FASTING 203 MG/DL (60-100); POTASSIUM SERUM 3.9 MMOL/L (3.5-5.1); SODIUM LEVEL 132 MMOL/L (136-145); TOTAL PROTEIN 6.1 G/DL (5.7-8.2)
[2024-09-29] MEDS ORDERED: HOME MED LIST COMPLETE! XX SCH (14:20)
[2024-09-29 16:31] LABS: BLOOD UREA NITROGEN 12 MG/DL (9-23); CALCIUM LEVEL 6.9 MG/DL (8.5-10.1); CARBON DIOXIDE LEVEL 19 MMOL/L (20-31); CHLORIDE LEVEL 103 MMOL/L (98-107); CREATININE FOR GFR 0.74 MG/DL (0.55-1.30); GLOMERULAR FILTRATION RATE > 90.0 (>58); GLUCOSE, FASTING 301 MG/DL (60-100); POTASSIUM SERUM 5.5 MMOL/L (3.5-5.1); SODIUM LEVEL 130 MMOL/L (136-145)
[2024-09-29] MEDS ORDERED: DEXTROSE 50% 50ML SYRINGE IV PRN (16:35)
[2024-09-29] MEDS ORDERED: GLUCAGON INJ 1MG VIAL SC PRN (16:35)
[2024-09-29] MEDS ORDERED: GLUCOSE 4 GM CHEW PO PRN (16:35)
[2024-09-29] MEDS: INSULIN LISPRO (NovoLOG) PER UNIT SC SCH ×2 (17:30→20:31)
[2024-09-29 17:48] LABS: BLOOD UREA NITROGEN 12 MG/DL (9-23); CALCIUM LEVEL 7.2 MG/DL (8.5-10.1); CARBON DIOXIDE LEVEL 17 MMOL/L (20-31); CHLORIDE LEVEL 103 MMOL/L (98-107); CREATININE FOR GFR 0.71 MG/DL (0.55-1.30); GLOMERULAR FILTRATION RATE > 90.0 (>58); GLUCOSE, FASTING 307 MG/DL (60-100); POTASSIUM SERUM 3.8 MMOL/L (3.5-5.1); SODIUM LEVEL 132 MMOL/L (136-145)
[2024-09-29] MEDS: METOCLOPRAMIDE INJ 10MG/2ML VIAL IV SCH (17:49)
[2024-09-29 18:00] VITALS: BP 133/71; TEMP 98.1; O2SAT 98
[2024-09-29] MEDS ORDERED: LORazepam 2 MG TAB PO PRN (18:45)
[2024-09-29] MEDS: NS (Normal Saline) 0.9% 1,000 ML IV SCH (18:45)
[2024-09-29 18:49] LABS: ETHYL ALCOHOL (ETHANOL) < 0.003 % (0.000-0.010)
[2024-09-29 18:56] LABS: KETONE, URINE AUTO RFX 1+ mg/dL (NEGATIVE); NITRITE, URINE AUTO RFX NEGATIVE (NEGATIVE); RBC, URINE AUTO RFX 2 /HPF (0-3); SQUAM EPITHELIAL CELL UR AURFX 2 /HPF (0-6)
[2024-09-29 18:57] LABS: LEUKOCYTE ESTERASE UR AUTO RFX TRACE (NEGATIVE); WBC, URINE AUTO RFX 29 /HPF (0-3)
[2024-09-29 19:13] LABS: AMPHETAMINES LEVEL URINE NEGATIVE (NEGATIVE); BARBITURATES URINE NEGATIVE (NEGATIVE); BENZODIAZEPINES URINE NEGATIVE (NEGATIVE); COCAINE METABOLITE URINE NEGATIVE (NEGATIVE); METHADONE URINE NEGATIVE (NEGATIVE); OPIATES URINE NEGATIVE (NEGATIVE); PHENCYCLIDINE URINE NEGATIVE (NEGATIVE)
[2024-09-29 19:19] LABS: CANNABINOIDS URINE POSITIVE (NEGATIVE)
[2024-09-29 19:51] VITALS: BP 131/75; TEMP 98.1; O2SAT 98
[2024-09-29] MEDS: FOLIC ACID 1MG TAB PO SCH (20:29)
[2024-09-29] MEDS: THIAMINE 100 MG TAB PO SCH (20:30)
[2024-09-29] MEDS: MULTIVITAMINS/MINERALS THERAP 1 TAB PO SCH (20:30)
[2024-09-29] MEDS: PANTOPRAZOLE 40MG VIAL IV SCH (20:30)
[2024-09-29] MEDS: LanTUS (INSULIN GLARGINE INJ) 1 UNITS/0.01 ML SC SCH (20:31)
[2024-09-29] MEDS ORDERED: ALBUTEROL 90 MCG/ACT 8GM HFA INHALER INH PRN (21:40)
[2024-09-29] MEDS: KETOROLAC 30 MG/ML 1ML VIAL IV PRN (22:40)
[2024-09-29] MEDS: cefTRIAXone SOD 1 GM in DEXTROSE 5% (D5W) ADV/MINI-BAG 50 ML IV SCH (22:43)
[2024-09-29 22:45] VITALS: BP 112/68
[2024-09-30] MEDS: metroNIDAZOLE 500 MG in IV 1 EA IV SCH (00:22)
[2024-09-30] MEDS: ACETAMINOPHEN *IV* 1,000 MG in IV 1 EA IV ONE (02:06)
[2024-09-30] MEDS: ONDANSETRON 4MG 2ML VIAL IV PRN (02:13)
[2024-09-30 04:01] VITALS: BP 115/70; TEMP 98.1; O2SAT 92
[2024-09-30 05:57] LABS: HEMATOCRIT 27.2 % (36.0-47.0); HEMOGLOBIN 9.3 g/dl (12.0-15.5); MEAN CORPUSCULAR HEMOGLOBIN 32.4 pg (27.0-33.0); MEAN CORPUSCULAR HGB CONC 34.2 g/dl (32.0-36.5); MEAN CORPUSCULAR VOLUME 94.8 fl (80.0-96.0); PLATELET COUNT, AUTOMATED 162 10^3/uL (150-450); RED BLOOD COUNT 2.87 10^6/uL (4.00-5.40); WHITE BLOOD COUNT 5.1 10^3/uL (4.0-10.0)
[2024-09-30 06:08] LABS: INR 1.04; PARTIAL THROMBOPLASTIN TIME 40.5 SECONDS (24.8-34.2); PROTHROMBIN TIME 13.9 SECONDS (12.5-14.5)
[2024-09-30 06:10] LABS: BLOOD UREA NITROGEN 9 MG/DL (9-23); CALCIUM LEVEL 7.1 MG/DL (8.5-10.1); CARBON DIOXIDE LEVEL 20 MMOL/L (20-31); CHLORIDE LEVEL 106 MMOL/L (98-107); GLOMERULAR FILTRATION RATE > 90.0 (>58); GLUCOSE, FASTING 225 MG/DL (60-100); MAGNESIUM LEVEL 1.9 MG/DL (1.8-2.4); POTASSIUM SERUM 3.5 MMOL/L (3.5-5.1); SODIUM LEVEL 135 MMOL/L (136-145)
[2024-09-30 06:32] LABS: LYMPHOCYTES 12 % (16-44); MONOCYTES 11 % (0-5); NEUTROPHILS 75 % (28-66)
[2024-09-30 06:35] LABS: PLATELET ESTIMATE NORMAL (NORMAL)
[2024-09-30 08:30] LABS: HEMOGLOBIN A1c 8.6 % (4.0-6.0)
[2024-09-30] MEDS: LanTUS (INSULIN GLARGINE INJ) 1 UNITS/0.01 ML SC SCH (09:03)
[2024-09-30 12:00] VITALS: BP 124/76; TEMP 97.7; O2SAT 90
[2024-09-30] MEDS ORDERED: METR-265 PO (20:49)
[2024-09-30] MEDS ORDERED: CEFD1CAP9 PO (20:49)
== END 2024-09-30 16:25 | disposition left against medical advice (07) | DRG 720 ==
LOC: M ED 07:01 → M ED INP 16:33 → M MS5PR 18:00
PROVIDERS: ADMIT Internal Medicine Nephrology; ATTEND Internal Medicine Nephrology
DX: A41.9 Sepsis, unspecified organism (principal); Q79.1 Other congenital malformations of diaphragm; K70.0 Alcoholic fatty liver; F10.20 Alcohol dependence, uncomplicated; J45.909 Unspecified asthma, uncomplicated; E10.9 Type 1 diabetes mellitus without complications; K52.9 Noninfective gastroenteritis and colitis, unspecified; Z79.4 Long term (current) use of insulin; Z79.899 Other long term (current) drug therapy; Z91.119 Patient's noncompliance with dietary regimen due to unspecified reason; F32.A Depression, unspecified; F41.9 Anxiety disorder, unspecified; F12.90 Cannabis use, unspecified, uncomplicated; F15.90 Other stimulant use, unspecified, uncomplicated; F17.200 Nicotine dependence, unspecified, uncomplicated; Z83.49 Family history of other endocrine, nutritional and metabolic diseases

== ENCOUNTER → 2024-12-19 | Outpatient (CLI) | payer MEDICAID ==
[~2024-12-19] MED LIST changes: +CEFD1CAP9 PO; +METR-265 PO
== END ==
LOC: M OUTALCOH 07:35
PROVIDERS: ATTEND Psychiatry & Neurology Psychiatry
DX: F10.10 Alcohol abuse, uncomplicated (principal); F17.200 Nicotine dependence, unspecified, uncomplicated

== ENCOUNTER → 2024-12-27 | Outpatient (REF) | payer MEDICAID, OTHER ==
[2024-12-27 18:34] LABS: PLATELET COUNT, AUTOMATED 265 10^3/uL (150-450)
[2024-12-27 18:44] LABS: FREE T4 1.00 NG/DL (0.89-1.76)
[2024-12-27 19:07] LABS: ESTIMATED AVERAGE GLUCOSE 183.0 MG/DL (60-110)
[2024-12-27 20:09] LABS: HCG, SERUM QUANTITATIVE 42387.1 MIU/ML (<4.2); HEPATITIS C VIRUS ABY INDEX 0.10 INDEX (<0.8); HIV 1&2 SCREEN NEGATIVE (NEGATIVE)
[2024-12-27 20:10] LABS: ALT/SGPT 16 U/L (7.0-40); AST/SGOT 16 U/L (<34); CALCIUM LEVEL 8.9 MG/DL (8.5-10.1); CARBON DIOXIDE LEVEL 24 MMOL/L (20-31); CHLORIDE LEVEL 104 MMOL/L (98-107); CREATININE FOR GFR 0.54 MG/DL (0.55-1.30); GLOMERULAR FILTRATION RATE > 90.0 (>58); POTASSIUM SERUM 3.8 MMOL/L (3.5-5.1); SODIUM LEVEL 140 MMOL/L (136-145)
== END ==
LOC: M LAB REF 17:13
PROVIDERS: ATTEND Obstetrics & Gynecology
DX: Z32.01 Encounter for pregnancy test, result positive (principal); O36.80X0 Pregnancy with inconclusive fetal viability, not applicable or unspecified; Z3A.00 Weeks of gestation of pregnancy not specified

== ENCOUNTER → 2025-01-17 | Outpatient (RCR) | payer MEDICAID | LOC: M OUTALCOH 12-26 09:49 | PROVIDERS: ATTEND Psychiatry & Neurology Psychiatry | DX: F10.20 Alcohol dependence, uncomplicated (principal); F17.200 Nicotine dependence, unspecified, uncomplicated ==

== ENCOUNTER → 2025-02-05 | Outpatient (CLI) | payer OTHER ==
[2025-02-05 15:40] LABS: PLATELET COUNT, AUTOMATED 248 10^3/uL (150-450)
[2025-02-05 15:45] LABS: LDH LACTATE DEHYDROGENASE 155 U/L (120-246)
[2025-02-05 15:46] LABS: ALT/SGPT 15 U/L (7.0-40); AST/SGOT 14 U/L (<34); CREATININE FOR GFR 0.45 MG/DL (0.55-1.30); GLOMERULAR FILTRATION RATE > 90.0 (>58)
[2025-02-05 16:18] LABS: HIV 1&2 SCREEN NEGATIVE (NEGATIVE)
[2025-02-05 16:22] LABS: ESTIMATED AVERAGE GLUCOSE 174.0 MG/DL (60-110)
[2025-02-05 16:27] LABS: HEPATITIS C VIRUS ABY INDEX < 0.02 INDEX (<0.8)
[2025-02-05 16:46] LABS: TOTAL PROTEIN,RANDOM URINE 14.2 MG/DL (0.0-14.0)
[2025-02-05 17:05] LABS: Trichomonas vaginalis (AMP) NOT DETECTED (NEGATIVE)
[2025-02-05 17:28] LABS: GC DNA AMPLIFICATION NEGATIVE (NEGATIVE)
== END ==
LOC: M PLALAB 11:54
PROVIDERS: ATTEND Obstetrics & Gynecology
DX: E10.65 Type 1 diabetes mellitus with hyperglycemia (principal); O09.522 Supervision of elderly multigravida, second trimester; Z3A.00 Weeks of gestation of pregnancy not specified

== ENCOUNTER 2025-02-07 09:00 | Outpatient (RCR) | payer MEDICAID | END 2025-02-17 | LOC: M OUTALCOH 09:00 | PROVIDERS: ATTEND Psychiatry & Neurology Psychiatry | DX: F10.20 Alcohol dependence, uncomplicated (principal); F17.200 Nicotine dependence, unspecified, uncomplicated ==

== ENCOUNTER → 2025-02-13 | Outpatient (CLI) | payer OTHER | LOC: M PLALAB 11:13 | PROVIDERS: ATTEND Obstetrics & Gynecology | DX: Z13.79 Encounter for other screening for genetic and chromosomal anomalies (principal); O09.522 Supervision of elderly multigravida, second trimester; O09.30 Supervision of pregnancy with insufficient antenatal care, unspecified trimester; Z3A.18 18 weeks gestation of pregnancy ==

== ENCOUNTER → 2025-02-22 | Outpatient (CLI) | payer OTHER | LOC: M WHC 07:56 | PROVIDERS: ATTEND Obstetrics & Gynecology | DX: E10.65 Type 1 diabetes mellitus with hyperglycemia (principal) ==

== ENCOUNTER → 2025-03-04 | Outpatient (CLI) | payer MEDICAID, OTHER | LOC: M WHC 15:44 | PROVIDERS: ATTEND Student in an Organized Health Care Education/Training Program | DX: Z34.80 Encounter for supervision of other normal pregnancy, unspecified trimester (principal); Z53.9 Procedure and treatment not carried out, unspecified reason ==

== ENCOUNTER → 2025-03-13 | Outpatient (REF) | payer MEDICAID, OTHER ==
[2025-03-13 17:09] LABS: TOTAL PROTEIN,RANDOM URINE 16.2 MG/DL (0.0-14.0)
== END ==
LOC: M PLALAB 13:48
PROVIDERS: ATTEND Student in an Organized Health Care Education/Training Program
DX: I10 Essential (primary) hypertension (principal); R30.0 Dysuria

== ENCOUNTER 2025-03-15 08:00 | Outpatient (RCR) | payer MEDICAID | END 2025-03-19 | LOC: M OUTALCOH 08:00 | PROVIDERS: ATTEND Psychiatry & Neurology Psychiatry | DX: F10.20 Alcohol dependence, uncomplicated (principal); F17.200 Nicotine dependence, unspecified, uncomplicated ==

== ENCOUNTER → 2025-04-11 | Outpatient (CLI) | payer MEDICAID, OTHER | LOC: M WHC 10:24 | PROVIDERS: ATTEND Student in an Organized Health Care Education/Training Program | DX: O44.02 Complete placenta previa NOS or without hemorrhage, second trimester (principal); Z3A.26 26 weeks gestation of pregnancy ==

== ENCOUNTER 2025-04-16 07:55 | Outpatient (RCR) | payer MEDICAID | END 2025-04-19 | LOC: M OUTALCOH 07:55 | PROVIDERS: ATTEND Psychiatry & Neurology Psychiatry | DX: F10.20 Alcohol dependence, uncomplicated (principal); F17.200 Nicotine dependence, unspecified, uncomplicated ==

== ENCOUNTER → 2025-05-06 | Outpatient (CLI) | payer OTHER ==
[2025-05-06 11:42] LABS: PLATELET COUNT, AUTOMATED 207 10^3/uL (150-450)
[2025-05-06 11:50] LABS: ALT/SGPT 29 U/L (7.0-40); AST/SGOT 24 U/L (<34); CALCIUM LEVEL 9.3 MG/DL (8.5-10.1); CARBON DIOXIDE LEVEL 23 MMOL/L (20-31); CHLORIDE LEVEL 105 MMOL/L (98-107); CREATININE FOR GFR 0.54 MG/DL (0.55-1.30); GLOMERULAR FILTRATION RATE > 90.0 (>58); POTASSIUM SERUM 4.6 MMOL/L (3.5-5.1); SODIUM LEVEL 136 MMOL/L (136-145)
[2025-05-06 13:06] LABS: ESTIMATED AVERAGE GLUCOSE 157.0 MG/DL (60-110)
== END ==
LOC: M PLALAB 08:35
PROVIDERS: ATTEND Specialist
DX: O24.013 Pre-existing type 1 diabetes mellitus, in pregnancy, third trimester (principal)

== ENCOUNTER → 2025-05-27 | Outpatient (CLI) | payer OTHER ==
[~2025-05-27] MED LIST changes: -INSU100V19 SC
== END ==
LOC: M WHC 07:01
PROVIDERS: ATTEND Specialist
DX: O24.013 Pre-existing type 1 diabetes mellitus, in pregnancy, third trimester (principal)

== ENCOUNTER 2025-06-06 12:52 | Outpatient (CLI) | payer OTHER, MEDICAID ==
[~2025-06-06] VITALS: Ht 170.2 cm; Wt 88.2 kg
[~2025-06-06 12:52] MED LIST changes: +ASPI81TA26 PO; +BASA100I SC; +FAMO10TA52 PO
[2025-06-06 13:24] VITALS: BP 148/78
[2025-06-06] MEDS: BETAMETHASONE SOLUSPAN 6 MG/ML 5 ML VIAL IM SCH (14:02)
[2025-06-06 14:05] VITALS: BP 137/73
[2025-06-07] MEDS ORDERED: BASA100I SC (15:33)
== END 2025-06-06 14:36 | disposition home or self-care (01) ==
LOC: M LDO 12:52
PROVIDERS: ATTEND Student in an Organized Health Care Education/Training Program
DX: O24.013 Pre-existing type 1 diabetes mellitus, in pregnancy, third trimester (principal); O09.523 Supervision of elderly multigravida, third trimester; E10.65 Type 1 diabetes mellitus with hyperglycemia; Z3A.34 34 weeks gestation of pregnancy
CPT/HCPCS: 59025; 96372; G0463; J0702

== ENCOUNTER 2025-06-07 15:10 | Outpatient (CLI) | payer OTHER, MEDICAID ==
[~2025-06-07] VITALS: Ht 170.2 cm; Wt 89.2 kg
[2025-06-07 15:26] VITALS: BP 149/93
[2025-06-07] MEDS ORDERED: BASA100I SC (15:33)
[2025-06-07] MEDS ORDERED: HOME MED LIST COMPLETE! XX SCH (15:35)
[2025-06-07 15:44] VITALS: BP 138/83
[2025-06-07 16:00] VITALS: BP 134/62
[2025-06-07] MEDS: BETAMETHASONE SOLUSPAN 6 MG/ML 5 ML VIAL IM ONE (16:25)
== END 2025-06-07 16:32 | disposition home or self-care (01) ==
LOC: M LDO 15:10
PROVIDERS: ATTEND Advanced Practice Midwife
DX: O44.03 Complete placenta previa NOS or without hemorrhage, third trimester (principal); O09.523 Supervision of elderly multigravida, third trimester; O24.013 Pre-existing type 1 diabetes mellitus, in pregnancy, third trimester; E10.65 Type 1 diabetes mellitus with hyperglycemia; Z79.4 Long term (current) use of insulin; Z3A.34 34 weeks gestation of pregnancy
CPT/HCPCS: 59025; 96372; G0463; J0702

== ENCOUNTER → 2025-06-12 | Outpatient (REF) | payer MEDICAID, OTHER | LOC: M PLALAB 07:17 | PROVIDERS: ATTEND Specialist | DX: Z34.80 Encounter for supervision of other normal pregnancy, unspecified trimester (principal) ==